=== PATIENT | female | born 1965 | race American Indian/Alaskan Native ===

== ENCOUNTER 2016-11-22 09:07 | Outpatient (CLI) | payer MEDICARE ==
--- NOTE | 2016-11-23 11:49 | Vascular Lab Report ---
LOWER EXTREMITY ARTERIAL DUPLEX: REASON FOR EXAM: Peripheral arterial disease. COMMENTS ON THE RIGHT: Triphasic waveforms are seen proximally. Triphasic waveforms are seen distally. No significant velocity gradients are identified. No focal significant plaque is identified. Findings are consistent with normal perfusion. Findings are consistent with the ability to heal distal wounds. COMMENTS ON THE LEFT: Triphasic waveforms are seen proximally. Triphasic waveforms are seen distally. No significant velocity gradients are identified. No focal significant plaque is identified. Findings are consistent with normal perfusion. Findings are consistent with the ability to heal distal wounds. IMPRESSION: RIGHT: Essentially normal arterial flow. LEFT:Essentially normal arterial flow.
== END 2016-11-22 09:08 | disposition home or self-care (01) ==
LOC: VAS 09:07
PROVIDERS: ATTEND Internal Medicine
DX: I99.8 Other disorder of circulatory system (principal); I10 Essential (primary) hypertension; I25.119 Atherosclerotic heart disease of native coronary artery with unspecified angina pectoris; E78.00 Pure hypercholesterolemia, unspecified; J45.909 Unspecified asthma, uncomplicated; J18.9 Pneumonia, unspecified organism; F41.9 Anxiety disorder, unspecified; F17.200 Nicotine dependence, unspecified, uncomplicated
CPT/HCPCS: 93925

== ENCOUNTER 2016-12-30 15:57 | Emergency (ER) | payer MEDICARE ==
--- NOTE | 2016-12-30 16:50 | XRay Report ---
FINAL REPORT EXAM: XR CHEST ROUTINE 2V HISTORY: Shortness of breath TECHNIQUE: PA and lateral views of the chest PRIORS: None. FINDINGS: Lines, tubes, and devices: N/A Lungs and pleura: Trachea is normal in position. There is mild infiltrate in the right cardiophrenic angle located posteriorly in the right lower lobe. There is no evidence for pleural effusion, vascular congestion, or pneumothorax. Cardiomediastinal silhouette: Cardiac and mediastinal silhouettes are unremarkable. Other: Bony structures are intact. IMPRESSION: Mild infiltrate in the medial right lung base.
[2016-12-30 17:23] LABS: Hematocrit 40.7 % (30.3-42.9); Hemoglobin 13.8 gm/dl (10.1-14.3); Mean Corpuscular HGB Conc 34 % (30-34); Mean Corpuscular Hemoglobin 32 pg (28-32); Mean Corpuscular Volume 93 fl (79-97); Platelet Count 291 K/mm3 (140-440); Red Blood Count 4.38 M/mm3 (3.65-5.03); Red Cell Distribution Width 12.5 % (13.2-15.2); White Blood Count 11.2 K/mm3 (4.5-11.0)
[2016-12-30 17:38] LABS: Anion Gap 16 mmol/L; Blood Urea Nitrogen 6 mg/dL (7-17); Carbon Dioxide 27 mmol/L (22-30); Chloride 101.9 mmol/L (98-107); Glucose 266 mg/dL (65-100); Sodium 141 mmol/L (137-145)
[2016-12-30 18:00] LABS: Basophils % (Manual) 0 % (0.0-1.8); Blastocytes % (Manual) 0 %
[2016-12-30 18:01] LABS: Diff Status Complete; Platelet Estimate Consistent w Auto; RBC Morphology Normal
--- NOTE | 2016-12-30 19:15 | Emergency Department Report ---
HPI - General Chief Complaint: Chest Pain Time Seen by Provider: 12/30/16 18:45 - HPI HPI: Room 25 The patient is a 51-year-old female presenting with a chief complaint pleurisy and headache. The patient states 2 weeks ago she noticed a "bump" in the right lower quadrant of her abdomen which she thought was a "hair bump." The patient states she developed a headache 2 weeks ago simple in origin as well. Patient states today she noticed a "bump" was bigger and when she pulled that all she discovered that it was a tick. Patient does admit to a subjective fever. The patient also states 2 days ago she developed pain in her back bilaterally sharp and pleuritic in nature associated with shortness of breath. The patient has a history of multiple PEs in the past and states symptoms feel similar. Patient also missed a cough has been productive of nielson sputum for the past 5 days. The patient states her last stress test occurred approximately 4 months ago and her last cardiac catheterization occurred in 2011 where they were able to "fix a small blockage without using a stent or balloon." Location: [see above] Duration: [see above] Quality: Sharp Severity: Moderate Modifying factors: [see above] Context: [see above] Mode of transportation: [not driving] ED Past Medical Hx - Past Medical History Hx Hypertension: Yes (FOR 7 YRS) Hx Diabetes: Yes (FOR 20 YRS) Hx Deep Vein Thrombosis: Yes (IVC filter placement 2008) Hx Pulmonary Embolism: Yes (IN 2002) Hx GERD: Yes Hx Arthritis: Yes Hx Asthma: Yes Additional medical history: CAD. UNSTABLE ANGINA. sacroidosis. neuropathy - Surgical History Hx Cholecystectomy: Yes (LAP IN 1997) Additional Surgical History: IVC FILTER. TUBAL LIGATION. TMJ SURGERY - Family History Family history: no significant - Social History Smoking Status: Current Every Day Smoker (1/2 pack per day) Substance Use Type: Alcohol (rarely) - Medications Home Medications: Home Medications Medication Instructions Recorded Confirmed Last Taken Type Insulin Aspart [NovoLOG Flexpen] 1 units SQ BID PRN 02/13/13 12/30/16 02/17/15 History Insulin Glargine,Hum.rec.anlog 50 unit SQ QHS 02/13/13 12/30/16 02/17/15 History [Lantus Solostar] Pantoprazole [Protonix TAB] 40 mg PO QDAY 1012/30/16 02/17/15 History Promethazine HCl [Promethazine TAB] 12.5 mg PO Q8HR PRN 02/13/13 12/30/16 History Valacyclovir HCl [valACYclovir] 1,000 mg PO QDAY 02/13/13 12/30/16 02/17/15 History clonazePAM [KlonoPIN] 1 mg PO Q8HR PRN 02/13/13 12/30/16 02/17/15 History metFORMIN [Glucophage] 1,000 mg PO BID #30 tab 02/13/13 12/30/16 02/17/15 Rx Diazepam 5 mg PO QHS 02/17/15 12/30/16 02/17/15 History Enoxaparin [Lovenox] 80 mg SQ Q12HR 02/17/15 12/30/16 02/17/15 History HYDROcodone/APAP 7.5-325 [[place] 1 each PO Q8HR PRN 02/17/15 12/30/16 02/17/15 History 7.5-325 mg TAB] Ipratropium/Albuterol Sulfate 1 ampul IH Q4HR 02/17/15 12/30/16 02/17/15 History [DUONEB *Not for PRN Use*] Pregabalin [Lyrica] 75 mg PO BID 02/17/15 12/30/16 02/17/15 History Ranitidine HCl [Zantac 150 MG TAB] 150 mg PO QHS 02/17/15 12/30/16 02/17/15 History Sitagliptin Phosphate [Januvia] 100 mg PO QDAY 02/17/15 12/30/16 02/17/15 History amLODIPine [Norvasc] 5 mg PO DAILY 02/17/15 12/30/16 02/17/15 History ALBUTEROL Inhaler [Proair] 2 puff IH QID PRN #1 inhalation 12/30/16 Unknown Rx Doxycycline [Vibramycin CAP] 100 mg PO Q12HR #20 capsule 12/30/16 Unknown Rx HYDROcodone/APAP 5-325 [[place] 1 - 2 each PO Q6HR PRN #14 tablet 12/30/16 Unknown Rx 5/325] ED Review of Systems ROS: Stated complaint: INSECT BITE Other details as noted in HPI Comment: All other systems reviewed and negative Constitutional: denies: chills, fever Eyes: denies: eye pain, eye discharge, vision change ENT: denies: ear pain, throat pain Respiratory: shortness of breath, other (pleurisy). denies: cough, wheezing Cardiovascular: chest pain Endocrine: no symptoms reported Gastrointestinal: denies: abdominal pain, nausea, diarrhea Genitourinary: denies: urgency, dysuria, discharge Musculoskeletal: back pain Skin: rash. denies: lesions Neurological: headache Psychiatric: denies: anxiety, depression Hematological/Lymphatic: denies: easy bleeding, easy bruising Physical Exam - Physical Exam Vital Signs: Vital Signs 12/30/16 12/30/16 12/30/16 16:02 18:12 18:25 Temperature 97.9 F Pulse Rate 93 H 92 H Respiratory 18 18 18 Rate Blood Pressure 133/77 Blood Pressure 120/67 [Left] O2 Sat by Pulse 99 100 Oximetry 12/30/16 18:27 Temperature Pulse Rate 92 H Respiratory Rate Blood Pressure Blood Pressure [Left] O2 Sat by Pulse Oximetry Physical Exam: GENERAL: The patient is well-developed well-nourished female lying on stretcher not appearing to be in acute distress. [] HEENT: Normocephalic. Atraumatic. Extraocular motions are intact. Patient has moist mucous membranes. NECK: Supple. No meningitic signs are noted. Trachea midline CHEST/LUNGS: Clear to auscultation. There is no respiratory distress noted. HEART/CARDIOVASCULAR: Regular. There is no tachycardia. There is no gallop rub or murmur. ABDOMEN: Abdomen is soft, nontender. Patient has normal bowel sounds. There is no abdominal distention. SKIN: There is an approximately 3 cm diameter circular region of erythema on the skin of the patient's abdominal right lower quadrant at the site of her tick bite. There are no target lesions. There is no diaphoresis. NEURO: The patient is awake, alert, and oriented. The patient is cooperative. Cranial nerves II through XII grossly intact. There are no focal neurologic findings. The patient has normal speech MUSCULOSKELETAL: There is no evidence of acute injury. ED Course Vital Signs 12/30/16 12/30/16 12/30/16 16:02 18:12 18:25 Temperature 97.9 F Pulse Rate 93 H 92 H Respiratory 18 18 18 Rate Blood Pressure 133/77 Blood Pressure 120/67 [Left] O2 Sat by Pulse 99 100 Oximetry 12/30/16 18:27 Temperature Pulse Rate 92 H Respiratory Rate Blood Pressure Blood Pressure [Left] O2 Sat by Pulse Oximetry ED Medical Decision Making - Lab Data Result diagrams: 12/30/16 16:53 12/30/16 16:53 Laboratory Tests 12/30/16 12/30/16 12/30/16 16:53 16:53 19:06 WBC 11.2 H RBC 4.38 Hgb 13.8 Hct 40.7 MCV 93 MCH 32 MCHC 34 RDW 12.5 L Plt Count 291 Lymph # Geriatrician Add Manual Diff Complete Total Counted 100 Seg Neuts % (Manual) 52.0 Band Neutrophils % 2.0 Lymphocytes % (Manual) 40.0 H Reactive Lymphs % (Man) 0 Monocytes % (Manual) 5.0 Eosinophils % (Manual) 1.0 Basophils % (Manual) 0 Metamyelocytes % 0 Myelocytes % 0 Promyelocytes % 0 Blast Cells % 0 Nucleated RBC % Not Reportable Seg Neutrophils # Man 5.8 Band Neutrophils # 0.2 Lymphocytes # (Manual) 4.5 Abs React Lymphs (Man) 0.0 Monocytes # (Manual) 0.6 Eosinophils # (Manual) 0.1 Basophils # (Manual) 0.0 Metamyelocytes # 0.0 Myelocytes # 0.0 Promyelocytes # 0.0 Blast Cells # 0.0 WBC Morphology Not Reportable Hypersegmented Neuts Not Reportable Hyposegmented Neuts Not Reportable Hypogranular Neuts Not Reportable Smudge Cells Not Reportable Toxic Granulation Not Reportable Toxic Vacuolation Not Reportable Dohle Bodies Not Reportable Pelger-Huet Anomaly Not Reportable Ashkan Rods Not Reportable Platelet Estimate Consistent w auto Clumped Platelets Not Reportable Plt Clumps, EDTA Not Reportable Large Platelets Not Reportable Giant Platelets Not Reportable Platelet Satelliting Not Reportable Plt Morphology Comment Not Reportable RBC Morphology Normal Dimorphic RBCs Not Reportable Polychromasia Not Reportable Hypochromasia Not Reportable Poikilocytosis Not Reportable Anisocytosis Not Reportable Microcytosis Not Reportable Macrocytosis Not Reportable Spherocytes Not Reportable Pappenheimer Bodies Not Reportable Sickle Cells Not Reportable Target Cells Not Reportable Tear Drop Cells Not Reportable Ovalocytes Not Reportable Helmet Cells Not Reportable Hand-[place] Bodies Not Reportable [place] Rings Not Reportable [place] Cells Not Reportable Bite Cells Not Reportable Crenated Cell Not Reportable Elliptocytes Not Reportable Acanthocytes (Spur) Not Reportable Rouleaux Not Reportable Hemoglobin C Crystals Not Reportable Schistocytes Not Reportable Malaria parasites Not Reportable Curt Bodies Not Reportable Hem Pathologist Commnt No PT 13.7 INR 1.00 APTT 31.1 Chloride 101.9 Carbon Dioxide 27 Anion Gap 16 BUN 6 L Creatinine 0.6 L Estimated GFR > 60 BUN/Creatinine Ratio 10.00 Glucose 266 H Calcium 9.0 Troponin T < 0.010 Sodium 141, potassium 4.0 - EKG Data -: EKG Interpreted by Me EKG shows normal: sinus rhythm Rate: normal - EKG Data When compared to previous EKG there are: previous EKG unavailable Interpretation: nonspecific ST-T wave tracee (T-wave inversion in leads 3 and V3) - Radiology Data Radiology results: report reviewed (CT chest), image reviewed (chest x-ray, CT chest) interpreted by me: Chest X-ray- basilar infiltrates CT chest (read by radiologist)-no evidence for PE. Bilateral groundglass opacities in the lung bases likely inflammatory or infectious. Small bolus bilaterally. Subcarinal and mild bilateral hilar adenopathy. Findings may be reactive. CT head (read by radiologist)-negative CT of the head. No acute intracranial process noted. Chronic maxillary sinusitis - Medical Decision Making Given patient's history of a recent tick bite antibiotic choice of doxycycline was made to cover the patient's pneumonia as well as potential rickettsial disease. Patient given strong warnings - Differential Diagnosis pneumonia, PE, ACS, rickettsial disease Critical care attestation.: If time is entered above; I have spent that time in minutes in the direct care of this critically ill patient, excluding procedure time. ED Disposition Clinical Impression: Bilateral pneumonia, Tick bite Disposition: DC-01 TO HOME OR SELFCARE Is pt being admited?: No Does the pt Need Aspirin: No Condition: Stable Instructions: Bacterial Pneumonia (ED) Additional Instructions: Return to the emergency department immediately should you develop worsening symptoms, fever, inability to tolerate food or liquid or any other concerns. Prescriptions: ALBUTEROL Inhaler [Proair] 2 puff IH QID PRN #1 inhalation PRN Reason: Shortness Of Breath Doxycycline [Vibramycin CAP] 100 mg PO Q12HR #20 capsule HYDROcodone/APAP 5-325 [[place] 5/325] 1 - 2 each PO Q6HR PRN #14 tablet PRN Reason: Pain Referrals: PRIMARY CARE, [Primary Care Provider] - 3-5 Days AYANNA RODRIGEZ MD [Staff Physician] - 3-5 Days Time of Disposition: 21:05
[2016-12-30 19:38] LABS: Partial Thromboplastin Time 31.1 Sec. (24.2-36.6)
[2016-12-30] MEDS ORDERED: NACL ONE (19:39)
--- NOTE | 2016-12-30 20:26 | Cat Scan Report ---
FINAL REPORT EXAM: CT HEAD/BRAIN WO CON HISTORY: headache TECHNIQUE: Standard unenhanced CT of the head at 5.0 millimeter axial increments PRIORS: None. FINDINGS: The ventricular system is normal in size and configuration. There is no evidence for parenchymal volume loss. There is no evidence for mass lesion, mass effect, midline shift, acute intracranial hemorrhage, or acute ischemia/ infarction. Visualized paranasal sinuses demonstrate extensive mucosal thickening throughout the maxillary sinuses, sphenoid sinuses, and bilateral ethmoid sinuses. The left frontal sinus is clear but there agenesis of the right frontal sinus. IMPRESSION: Negative CT of the head. No acute intracranial process noted. Chronic maxillary sinusitis
--- NOTE | 2016-12-30 20:43 | Cat Scan Report ---
FINAL REPORT EXAM: CT ANGIO CHEST HISTORY: pleurisy, shortness of breath TECHNIQUE: Enhanced CT of the chest at 2.5 mm axial intervals following a pulmonary embolism protocol. Coronal and sagittal imaging were also obtained. Oblique coronal MIP projections were obtained. Contrast: 100 ml of Omnipaque 350 given IV. PRIORS: None. FINDINGS: There is no evidence for pulmonary embolism in the main pulmonary artery, right and left pulmonary arteries or their major distributions. However, CT does not exclude distal pulmonary emboli. Within the neck, the thyroid gland extends to the level of the manubrium. No focal nodule is seen. Ground-glass opacities in both lung bases are noted which may be inflammatory or infectious. A few small bulla are present bilaterally. Otherwise, the lung parenchyma are expanded and clear with no evidence for parenchymal nodules, consolidation, congestion, or pleural effusion. A subcarinal lymph node measures 1.6 cm which is mildly enlarged. There is also mild bilateral hilar adenopathy. There is no evidence for axillary evidence for mediastinal, hilar, or axillary adenopathy. Cardiovascular structures are within normal limits. No evidence for ventricular chamber enlargement is seen. Images through the lung bases include the upper abdomen which show no abnormalities of the visualized abdominal viscera. Gallbladder has been surgically removed. Bony structures demonstrate no focal abnormalities. IMPRESSION: 1. no evidence for pulmonary embolism. 2. Bilateral ground-glass opacities in the lung bases, likely inflammatory or infectious 3. small bullous bilaterally 4. Sub-carinal and mild bilateral hilar adenopathy. Findings may be reactive
[2016-12-30 21:29] VITALS: BP 140/86
== END 2016-12-30 21:29 | disposition home or self-care (01) ==
LOC: ED 15:57
DX: J18.9 Pneumonia, unspecified organism (principal); W57.XXXA Bitten or stung by nonvenomous insect and other nonvenomous arthropods, initial encounter; Y93.9 Activity, unspecified; Y92.9 Unspecified place or not applicable; Y99.9 Unspecified external cause status
CPT/HCPCS: 36415; 70450; 71020; 71275; 80048; 84484; 85007; 85025; 85610; 85730; 87040; 93005; 93010; 99284; Q9967

== ENCOUNTER 2017-05-10 14:56 | Outpatient (CLI) | payer MEDICARE ==
--- NOTE | 2017-05-15 13:58 | Vascular Lab Report ---
Left Lower Extremity Venous Duplex Study: Reason for Exam: Pain of the left lower extremity. Comments on the Right: A limited duplex study was done of the proximal veins of the right lower extremity. All veins visualized are freely compressible without evidence of internal echogenicity. Flow is spontaneous and phasic throughout. No evidence of acute or chronic thrombus is seen in any of the vessels visualized. Comments on the Left: All veins visualized are freely compressible without evidence of internal echogenicity. Flow is spontaneous and phasic throughout. No evidence of acute or chronic thrombus is seen in any of the vessels visualized. Impression: No evidence of acute or chronic deep venous thrombosis in the left lower extremity.
== END 2017-05-10 14:57 | disposition home or self-care (01) ==
LOC: VAS 14:56
PROVIDERS: ATTEND Internal Medicine
DX: M79.605 Pain in left leg (principal)

== ENCOUNTER 2017-08-09 23:10 | Inpatient (IN) | payer MEDICARE ==
[2017-08-10] MEDS ORDERED: ASPIRIN PO ONE (00:37)
[2017-08-10 01:07] LABS: Hematocrit 40.8 % (30.3-42.9); Mean Corpuscular HGB Conc 34 % (30-34); Mean Corpuscular Hemoglobin 32 pg (28-32); Mean Corpuscular Volume 92 fl (79-97); Platelet Count 304 K/mm3 (140-440); Red Blood Count 4.43 M/mm3 (3.65-5.03); Red Cell Distribution Width 12.5 % (13.2-15.2)
--- NOTE | 2017-08-10 01:24 | XRay Report ---
FINAL REPORT EXAM: XR CHEST ROUTINE 2V HISTORY: BRONWYN TECHNIQUE: Three views of the chest were submitted. Comparison is made to the study of 12/30/2016. FINDINGS: The heart size and mediastinum appear normal. There are no localized infiltrates or effusions. The lungs are not congested. The skeletal structures are well-maintained. IMPRESSION: No active chest disease.
[2017-08-10 01:28] LABS: BUN/Creatinine Ratio 7; Blood Urea Nitrogen 5 mg/dL (7-17); Calcium 8.7 mg/dL (8.4-10.2); Hemolysis Index 1
--- NOTE | 2017-08-10 02:06 | Emergency Department Report ---
ED Chest Pain HPI - General Chief Complaint: Chest Pain Stated Complaint: BODYACHE Time Seen by Provider: 08/10/17 02:05 Source: patient Mode of arrival: Ambulatory Limitations: No Limitations - History of Present Illness MD Complaint: chest pain -: Sudden Onset: during rest Pain Location: substernal, left chest, right chest Pain Radiation: neck Severity: moderate Severity scale (0 -10): 8 Quality: sharp Consistency: constant Improves With: remaining still Worsens With: palpation, movement Context: recent illness re: dyspnea. denies: nausea, vomting, diaphoresis Other Symptoms: cough, fever, palpitations. denies: syncope, rash, acid taste in mouth, leg swelling, burping Treatments Prior to Arrival: none Aspirin use within the Past 7 Days: (0) No - Related Data On Oral Contraceptives: No Home Medications Medication Instructions Recorded Confirmed Last Taken Insulin Aspart [NovoLOG Flexpen] 1 units SQ BID PRN 02/13/13 12/30/16 02/17/15 Insulin Glargine,Hum.rec.anlog 50 unit SQ QHS 02/13/13 12/30/16 02/17/15 [Lantus Solostar] Pantoprazole [Protonix TAB] 40 mg PO QDAY 02/13/13 12/30/16 02/17/15 Promethazine HCl [Promethazine TAB] 12.5 mg PO Q8HR PRN 02/13/13 12/30/16 Valacyclovir HCl [valACYclovir] 1,000 mg PO QDAY 02/13/13 12/30/16 02/17/15 clonazePAM [KlonoPIN] 1 mg PO Q8HR PRN 02/13/13 12/30/16 02/17/15 Diazepam 5 mg PO QHS 02/17/15 12/30/16 02/17/15 Enoxaparin [Lovenox] 80 mg SQ Q12HR 02/17/15 12/30/16 02/17/15 HYDROcodone/APAP 7.5-325 [[place] 1 each PO Q8HR PRN 02/17/15 12/30/16 02/17/15 7.5-325 mg TAB] Ipratropium/Albuterol Sulfate 1 ampul IH Q4HR 10/08/15 08/20/17 10/08/15 [DUONEB *Not for PRN Use*] Pregabalin [Lyrica] 75 mg PO BID 02/17/15 12/30/16 02/17/15 Ranitidine HCl [Zantac 150 MG TAB] 150 mg PO QHS 02/17/15 12/30/16 02/17/15 Sitagliptin Phosphate [Januvia] 100 mg PO QDAY 02/17/15 12/30/16 02/17/15 amLODIPine [Norvasc] 5 mg PO DAILY 02/17/15 12/30/16 02/17/15 Previous Rx's Medication Instructions Recorded Last Taken Type metFORMIN [Glucophage] 1,000 mg PO BID #30 tab 02/13/13 02/17/15 Rx ALBUTEROL Inhaler [Proair] 2 puff IH QID PRN #1 inhalation 12/30/16 Unknown Rx Doxycycline [Vibramycin CAP] 100 mg PO Q12HR #20 capsule 12/30/16 Unknown Rx HYDROcodone/APAP 5-325 [[place] 1 - 2 each PO Q6HR PRN #14 tablet 12/30/16 Unknown Rx 5/325] Allergies Allergy/AdvReac Type Severity Reaction Status Date / Time aspirin AdvReac Mild ON THINNERS Verified 06/03/14 18:10 Heart Score - HEART Score History: Moderately suspicious EKG: Normal Age: 45-65 Risk factors: > 3 risk factors or hx of atherosclerotic disease Troponin: < normal limit HEART Score: 4 ED Review of Systems ROS: Stated complaint: BODYACHE Other details as noted in HPI Comment: All other systems reviewed and negative Constitutional: chills. denies: fever Eyes: denies: eye pain, eye discharge, vision change ENT: denies: ear pain, throat pain Respiratory: cough, shortness of breath, SOB with exertion, SOB at rest. denies : wheezing Cardiovascular: chest pain. denies: palpitations Endocrine: no symptoms reported Gastrointestinal: denies: abdominal pain, nausea, diarrhea Genitourinary: denies: urgency, dysuria, discharge Musculoskeletal: denies: back pain, joint swelling, arthralgia Skin: denies: rash, lesions Neurological: denies: headache, weakness, paresthesias Psychiatric: denies: anxiety, depression Hematological/Lymphatic: denies: easy bleeding, easy bruising ED Past Medical Hx - Past Medical History Previous Medical History?: Yes Hx Hypertension: Yes (FOR 7 YRS) Hx Heart Attack/AMI: No Hx Congestive Heart Failure: No Hx Diabetes: Yes (FOR 20 YRS) Hx Deep Vein Thrombosis: Yes (IVC filter placement 2008) Hx Pulmonary Embolism: Yes (IN 2002) Hx GERD: Yes Hx Liver Disease: No Hx Renal Disease: No Hx Sickle Cell Disease: No Hx Arthritis: Yes Hx Seizures: No Hx Kidney Stones: No Hx Asthma: Yes Hx COPD: No Hx Tuberculosis: No Hx Dementia: No Hx HIV: No Additional medical history: CAD. UNSTABLE ANGINA. sacroidosis. neuropathy - Surgical History Past Surgical History?: Yes Hx Coronary Stent: No Hx Pacemaker: No Hx Internal Defibrillator: No Hx Cholecystectomy: Yes (LAP IN 1997) Additional Surgical History: IVC FILTER. TUBAL LIGATION. TMJ SURGERY - Family History Family history: hypertension - Social History Smoking Status: Current Every Day Smoker Substance Use Type: None - Medications Home Medications: Home Medications Medication Instructions Recorded Confirmed Last Taken Type Insulin Aspart [NovoLOG Flexpen] 1 units SQ BID PRN 02/13/13 12/30/16 02/17/15 History Insulin Glargine,Hum.rec.anlog 50 unit SQ QHS 02/13/13 12/30/16 02/17/15 History [Lantus Solostar] Pantoprazole [Protonix TAB] 40 mg PO QDAY 02/13/13 12/30/16 02/17/15 History Promethazine HCl [Promethazine TAB] 12.5 mg PO Q8HR PRN 02/13/13 12/30/16 History Valacyclovir HCl [valACYclovir] 1,000 mg PO QDAY 02/13/13 12/30/16 02/17/15 History clonazePAM [KlonoPIN] 1 mg PO Q8HR PRN 02/13/13 12/30/16 02/17/15 History metFORMIN [Glucophage] 1,000 mg PO BID #30 tab 02/13/13 12/30/16 02/17/15 Rx Diazepam 5 mg PO QHS 02/17/15 12/30/16 02/17/15 History Enoxaparin [Lovenox] 80 mg SQ Q12HR 02/17/15 12/30/16 02/17/15 History HYDROcodone/APAP 7.5-325 [[place] 1 each PO Q8HR PRN 02/17/15 12/30/16 02/17/15 History 7.5-325 mg TAB] Ipratropium/Albuterol Sulfate 1 ampul IH Q4HR 02/17/15 12/30/16 02/17/15 History [DUONEB *Not for PRN Use*] Pregabalin [Lyrica] 75 mg PO BID 02/17/15 12/30/16 02/17/15 History Ranitidine HCl [Zantac 150 MG TAB] 150 mg PO QHS 02/17/15 12/30/16 02/17/15 History Sitagliptin Phosphate [Januvia] 100 mg PO QDAY 02/17/15 12/30/16 02/17/15 History amLODIPine [Norvasc] 5 mg PO DAILY 02/17/15 12/30/16 02/17/15 History ALBUTEROL Inhaler [Proair] 2 puff IH QID PRN #1 inhalation 12/30/16 Unknown Rx Doxycycline [Vibramycin CAP] 100 mg PO Q12HR #20 capsule 12/30/16 Unknown Rx HYDROcodone/APAP 5-325 [[place] 1 - 2 each PO Q6HR PRN #14 tablet 12/30/16 Unknown Rx 5/325] ED Physical Exam - General Limitations: No Limitations General appearance: alert, in no apparent distress - Head Head exam: Present: atraumatic, normocephalic - Eye Eye exam: Present: normal appearance - ENT ENT exam: Present: mucous membranes moist - Neck Neck exam: Present: normal inspection - Respiratory Respiratory exam: Present: rhonchi, chest wall tenderness - Cardiovascular Cardiovascular Exam: Present: regular rate, normal rhythm. Absent: systolic murmur, diastolic murmur, rubs, gallop - GI/Abdominal GI/Abdominal exam: Present: soft, normal bowel sounds - Extremities Exam Extremities exam: Present: normal inspection - Back Exam Back exam: Present: normal inspection - Neurological Exam Neurological exam: Present: alert, oriented X3 - Psychiatric Psychiatric exam: Present: normal affect, normal mood - Skin Skin exam: Present: warm, dry, intact, normal color. Absent: rash ED Course Vital Signs 08/10/17 00:31 Temperature 97.8 F Pulse Rate 95 H Respiratory 18 Rate Blood Pressure 158/82 O2 Sat by Pulse 97 Oximetry - Reevaluation(s) Reevaluation #1: Discussed plan of care with patient. All results discussed with patient. Will consult hospitalist for admission. 08/10/17 04:07 DANII score - Danii Score Age > 65: (0) No Aspirin use within the Past 7 Days: (0) No 3 or more CAD Risk Factors: (1) Yes 2 or more Angina events in past 24 hrs: (1) Yes Known CAD with more than 50% Stenosis: (0) No Elevated Cardiac Markers: (0) No ST Deviation Greater than 0.5mm: (0) No DANII Score: 2 ED Medical Decision Making - Lab Data Result diagrams: 08/10/17 00:46 08/10/17 00:46 - EKG Data -: EKG Interpreted by Me EKG shows normal: sinus rhythm, axis, intervals, QRS complexes, ST-T waves Rate: normal - EKG Data Interpretation: normal EKG - Radiology Data Radiology results: report reviewed, image reviewed interpreted by me: No acute findings on chest x-ray Normal limits chest x-ray - Medical Decision Making Patient is a 52-year-old female that presents to emergency room with chest pain and shortness of breath. Will admit patient for further evaluation. Patient appears to have bronchitis. Will treat accordingly. - Differential Diagnosis bronchitis. Pneumonia. Chest pain. Shortness of breath. Cough. ACS. P Critical care attestation.: If time is entered above; I have spent that time in minutes in the direct care of this critically ill patient, excluding procedure time. ED Disposition Clinical Impression: Chest pain, SOB (shortness of breath), Bronchitis, Elevated WBC count, Hyperglycemia Disposition: 09 OP ADMIT IP TO THIS HOSP Is pt being admited?: Yes Does the pt Need Aspirin: No Condition: Serious Time of Disposition: 04:06
[2017-08-10 02:12] LABS: Bilirubin,Urine NEG (Negative); Blood,Urine NEG (Negative); Color,Urine Straw (Yellow); Mucus,Urine FEW /HPF; Protein,Urine <15 mg/dL mg/dL (Negative); Urobilinogen,Urine < 2.0 mg/dL (<2.0)
[2017-08-10 02:43] LABS: Band Neutrophils # (Manual) 0.3 K/mm3; Basophils % (Manual) 0 % (0.0-1.8); RBC Morphology Normal; Total Cells Counted 100
[2017-08-10] MEDS ORDERED: MORPHINE IV ONE (03:51)
[2017-08-10] MEDS ORDERED: ROCEPHIN/NS 1 GM/50 ML 1 GM/50 ML BAG IV ONE (03:54)
[2017-08-10] MEDS ORDERED: cefTRIAXone 1 GM in NACL 0.9% 20 ML IV ONE (03:54)
[2017-08-10] MEDS ORDERED: XARELTO PO ONE (05:26)
[2017-08-10] MEDS ORDERED: SODIUM CHLORIDE FLUSH SYRINGE 10 ML IV PRN (05:34)
[2017-08-10] MEDS ORDERED: NACL 0.45% 1000 ML 1,000 ML IV SCH (06:00)
[2017-08-10 07:13] LABS: BUN/Creatinine Ratio 8; Blood Urea Nitrogen 4 mg/dL (7-17); Calcium 8.7 mg/dL (8.4-10.2); Hemolysis Index 6
[2017-08-10] MEDS ORDERED: GLUCOPHAGE PO SCH (08:00)
[2017-08-10] MEDS ORDERED: LEXISCAN IV ONE (08:14)
--- NOTE | 2017-08-10 08:33 | History and Physical Report ---
History of Present Illness Date of examination: 08/10/17 Date of admission: 08/10/17 05:25 Chief complaint: chest pain History of present illness: Ms Diaz is a 52 y/o female with chronic pain syndrome, DM, CAD, HTN, morbid obesity, presented to the hospital accompained by her sister with c/o right sided and Substernal Chest pain x a few days, 8/10 worsened by movement, no SOB , squeezing in origin, reports recent fall on the right side. Pain is usually relieved by pain meds, but pt has been out of her hydrocodone . ED Course On presentation to the ED, VS were stable EKG, CXR, done both negative Aspirin was given, pain meds given too Referred to the hospital medicine service for inpt admis Past History Past Medical History: CAD, diabetes, hypertension, hyperlipidemia, sarcoidosis Past Surgical History: No surgical history Social history: single, lives with family, smoking, full code, other Family history: CAD, diabetes, hypertension, stroke Medications and Allergies Allergies Allergy/AdvReac Type Severity Reaction Status Date / Time aspirin AdvReac Mild ON THINNERS Verified 06/03/14 18:10 Home Medications Medication Instructions Recorded Confirmed Last Taken Type Insulin Aspart [NovoLOG Flexpen] 1 units SQ BID PRN 02/13/13 12/30/16 02/17/15 History Insulin Glargine,Hum.rec.anlog 50 unit SQ QHS 02/13/13 12/30/16 02/17/15 History [Lantus Solostar] Pantoprazole [Protonix TAB] 40 mg PO QDAY 02/13/13 12/30/16 02/17/15 History Promethazine HCl [Promethazine TAB] 12.5 mg PO Q8HR PRN 02/13/13 12/30/16 History Valacyclovir HCl [valACYclovir] 1,000 mg PO QDAY 02/13/13 12/30/16 02/17/15 History clonazePAM [KlonoPIN] 1 mg PO Q8HR PRN 02/13/13 12/30/16 02/17/15 History metFORMIN [Glucophage] 1,000 mg PO BID #30 tab 02/13/13 12/30/16 02/17/15 Rx Diazepam 5 mg PO QHS 02/17/15 12/30/16 02/17/15 History Enoxaparin [Lovenox] 80 mg SQ Q12HR 02/17/15 12/30/16 02/17/15 History HYDROcodone/APAP 7.5-325 [[place] 1 each PO Q8HR PRN 02/17/15 12/30/16 02/17/15 History 7.5-325 mg TAB] Ipratropium/Albuterol Sulfate 1 ampul IH Q4HR 02/17/15 12/30/16 02/17/15 History [DUONEB *Not for PRN Use*] Pregabalin [Lyrica] 75 mg PO BID 02/17/15 12/30/16 02/17/15 History Ranitidine HCl [Zantac 150 MG TAB] 150 mg PO QHS 02/17/15 12/30/16 02/17/15 History Sitagliptin Phosphate [Januvia] 100 mg PO QDAY 02/17/15 12/30/16 02/17/15 History amLODIPine [Norvasc] 5 mg PO DAILY 02/17/15 12/30/16 02/17/15 History ALBUTEROL Inhaler [Proair] 2 puff IH QID PRN #1 inhalation 12/30/16 Unknown Rx Doxycycline [Vibramycin CAP] 100 mg PO Q12HR #20 capsule 12/30/16 Unknown Rx HYDROcodone/APAP 5-325 [[place] 1 - 2 each PO Q6HR PRN #14 tablet 12/30/16 Unknown Rx 5/325] Active Meds: Active Medications Albuterol/Ipratropium (Duoneb *Not For Prn Use*) 1 ampul IH Q4HRT JERMAINE Amlodipine Besylate (Norvasc) 5 mg PO DAILY JERMAINE Atorvastatin Calcium (Lipitor) 40 mg PO QHS JERMAINE Sodium Chloride (Nacl 0.45% 1000 Ml) 1,000 mls @ 75 mls/hr IV DIRECT JERMAINE Metformin HCl (Glucophage) 1,000 mg PO BIDDIAB JERMAINE Pantoprazole Sodium (Protonix) 40 mg PO QDAY JERMAINE Pregabalin (Lyrica) 75 mg PO BID JERMAINE Regadenoson (Lexiscan) 0.4 mg IV ONCE ONE Stop: 08/10/17 08:15 Sodium Chloride (Sodium Chloride Flush Syringe 10 Ml) 10 ml IV PRN PRN PRN Reason: LINE FLUSH Valacyclovir HCl (Valtrex) 1,000 mg PO QDAY JERMAINE Review of Systems Constitutional: weight gain, weakness, no chills, no sweats Eyes: bilateral: other (no visual disturbance or loss) Ears, nose, mouth and throat: ear discharge, no ear pain, no bleeding gums, no dental pain, no mouth pain Breasts: no change in shape, no swelling, no mass Cardiovascular: chest pain, dyspnea on exertion, no orthopnea, no palpitations, no shortness of breath Respiratory: cough with sputum, congestion, no excessive sputum, no wheezing, no pleurisy Gastrointestinal: no abdominal pain, no vomiting, no diarrhea, no hematochezia, no loss of appetite Genitourinary Female: no dyspareunia, no dysmenorrhea, no incomplete emptying, no urge incontinence Menstruation: postmenopausal Rectal: no incontinence, no bleeding, no hemorrhoids, no discharge Musculoskeletal: muscle weakness, muscle cramps, myalgias, no atrophy, no limitation of motion, no gait dysfunction Integumentary: no sores, no wounds, no jaundice, no blisters Neurological: no parathesias, no numbness, no tingling, no convulsions, no aphasia Psychiatric: no insomnia, no hypersomnia, no hallucinations, no paranoia, no depression Endocrine: no cold intolerance, no heat intolerance, no excessive sweating, no flushing Hematologic/Lymphatic: no easy bruising, no easy bleeding, no lymphadenopathy, no lymphedema Allergic/Immunologic: seasonal allergies, no allergic rhinitis, no persistent infections, no anaphylaxis Exam - Constitutional Vitals: Temp Pulse Resp BP Pulse Ox 97.8 F 79 18 152/86 96 08/10/17 00:31 08/10/17 06:11 08/10/17 06:11 08/10/17 06:11 08/10/17 06:11 General appearance: Present: no acute distress, cachectic - EENT Eyes: Present: PERRL, EOM intact ENT: hearing intact, clear oral mucosa, edentulous - Neck Neck: Present: supple, normal ROM - Respiratory Respiratory effort: normal Respiratory: bilateral: CTA, negative: rhonchi, wheezing - Cardiovascular Rhythm: regular Heart Sounds: Present: S1 & S2 - Extremities Extremities: no ischemia, No edema, normal temperature - Abdominal General gastrointestinal: Present: non-tender, non-distended, normal bowel sounds Female genitourinary: Present: deferred - Rectal Rectal Exam: deferred - Integumentary Integumentary: Present: clear, warm - Musculoskeletal Musculoskeletal: strength equal bilaterally, other (reproducible chest tenderness) - Psychiatric Psychiatric: appropriate mood/affect, intact judgment & insight, memory intact, other (talkative) - Neurologic Neurologic: CNII-XII intact, moves all extremities - Allied Health Allied health notes reviewed: nursing Results - Labs CBC & Chem 7: 08/10/17 00:46 08/10/17 06:33 Labs: Laboratory Last Values WBC 11.3 K/mm3 (4.5-11.0) H 08/10/17 00:46 RBC 4.43 M/mm3 (3.65-5.03) 08/10/17 00:46 Hgb 14.0 gm/dl (10.1-14.3) 08/10/17 00:46 Hct 40.8 % (30.3-42.9) 08/10/17 00:46 MCV 92 fl (79-97) 08/10/17 00:46 MCH 32 pg (28-32) 08/10/17 00:46 MCHC 34 % (30-34) 08/10/17 00:46 RDW 12.5 % (13.2-15.2) L 08/10/17 00:46 Plt Count 304 K/mm3 (140-440) 08/10/17 00:46 Lymph # Aids Social Worker 08/10/17 00:46 Add Manual Diff Complete 08/10/17 00:46 Total Counted 100 08/10/17 00:46 Seg Neuts % (Manual) 66.0 % (40.0-70.0) 08/10/17 00:46 Band Neutrophils % 3.0 % 08/10/17 00:46 Lymphocytes % (Manual) 22.0 % (13.4-35.0) 08/10/17 00:46 Reactive Lymphs % (Man) 0 % 08/10/17 00:46 Monocytes % (Manual) 7.0 % (0.0-7.3) 08/10/17 00:46 Eosinophils % (Manual) 2.0 % (0.0-4.3) 08/10/17 00:46 Basophils % (Manual) 0 % (0.0-1.8) 08/10/17 00:46 Metamyelocytes % 0 % 08/10/17 00:46 Myelocytes % 0 % 08/10/17 00:46 Promyelocytes % 0 % 08/10/17 00:46 Blast Cells % 0 % 08/10/17 00:46 Nucleated RBC % Not Reportable 08/10/17 00:46 Seg Neutrophils # Man 7.5 K/mm3 (1.8-7.7) 08/10/17 00:46 Band Neutrophils # 0.3 K/mm3 08/10/17 00:46 Lymphocytes # (Manual) 2.5 K/mm3 (1.2-5.4) 08/10/17 00:46 Abs React Lymphs (Man) 0.0 K/mm3 08/10/17 00:46 Monocytes # (Manual) 0.8 K/mm3 (0.0-0.8) 08/10/17 00:46 Eosinophils # (Manual) 0.2 K/mm3 (0.0-0.4) 08/10/17 00:46 Basophils # (Manual) 0.0 K/mm3 (0.0-0.1) 08/10/17 00:46 Metamyelocytes # 0.0 K/mm3 08/10/17 00:46 Myelocytes # 0.0 K/mm3 08/10/17 00:46 Promyelocytes # 0.0 K/mm3 08/10/17 00:46 Blast Cells # 0.0 K/mm3 08/10/17 00:46 WBC Morphology Not Reportable 08/10/17 00:46 Hypersegmented Neuts Not Reportable 08/10/17 00:46 Hyposegmented Neuts Not Reportable 08/10/17 00:46 Hypogranular Neuts Not Reportable 08/10/17 00:46 Smudge Cells Not Reportable 08/10/17 00:46 Toxic Granulation Not Reportable 08/10/17 00:46 Toxic Vacuolation Not Reportable 08/10/17 00:46 Dohle Bodies Not Reportable 08/10/17 00:46 Pelger-Huet Anomaly Not Reportable 08/10/17 00:46 Ashkan Rods Not Reportable 08/10/17 00:46 Platelet Estimate Appears normal 08/10/17 00:46 Clumped Platelets Not Reportable 08/10/17 00:46 Plt Clumps, EDTA Not Reportable 08/10/17 00:46 Large Platelets Not Reportable 08/10/17 00:46 Giant Platelets Not Reportable 08/10/17 00:46 Platelet Satelliting Not Reportable 08/10/17 00:46 Plt Morphology Comment Not Reportable 08/10/17 00:46 RBC Morphology Normal 08/10/17 00:46 Dimorphic RBCs Not Reportable 08/10/17 00:46 Polychromasia Not Reportable 08/10/17 00:46 Hypochromasia Not Reportable 08/10/17 00:46 Poikilocytosis Not Reportable 08/10/17 00:46 Anisocytosis Not Reportable 08/10/17 00:46 Microcytosis Not Reportable 08/10/17 00:46 Macrocytosis Not Reportable 08/10/17 00:46 Spherocytes Not Reportable 08/10/17 00:46 Pappenheimer Bodies Not Reportable 08/10/17 00:46 Sickle Cells Not Reportable 08/10/17 00:46 Target Cells Not Reportable 08/10/17 00:46 Tear Drop Cells Not Reportable 08/10/17 00:46 Ovalocytes Not Reportable 08/10/17 00:46 Helmet Cells Not Reportable 08/10/17 00:46 [place] Bodies Not Reportable 08/10/17 00:46 [place] Rings Not Reportable 08/10/17 00:46 [place] Cells Not Reportable 08/10/17 00:46 Bite Cells Not Reportable 08/10/17 00:46 Crenated Cell Not Reportable 08/10/17 00:46 Elliptocytes Not Reportable 08/10/17 00:46 Acanthocytes (Spur) Not Reportable 08/10/17 00:46 Rouleaux Not Reportable 08/10/17 00:46 Hemoglobin C Crystals Not Reportable 08/10/17 00:46 Schistocytes Not Reportable 08/10/17 00:46 Malaria parasites Not Reportable 08/10/17 00:46 Curt Bodies Not Reportable 08/10/17 00:46 Hem Pathologist Commnt No 08/10/17 00:46 Sodium 138 mmol/L (137-145) 08/10/17 06:33 Potassium 3.5 mmol/L (3.6-5.0) L 08/10/17 06:33 Chloride 100.1 mmol/L (98-107) 08/10/17 06:33 Carbon Dioxide 25 mmol/L (22-30) 08/10/17 06:33 Anion Gap 16 mmol/L 08/10/17 06:33 BUN 4 mg/dL (7-17) L 08/10/17 06:33 Creatinine 0.5 mg/dL (0.7-1.2) L 08/10/17 06:33 Estimated GFR > 60 ml/min 08/10/17 06:33 BUN/Creatinine Ratio 8 % 08/10/17 06:33 Glucose 302 mg/dL (65-100) H 08/10/17 06:33 Calcium 8.7 mg/dL (8.4-10.2) 08/10/17 06:33 Troponin T < 0.010 ng/mL (0.00-0.029) 08/10/17 00:46 Urine Color Straw (Yellow) 08/10/17 01:41 Urine Turbidity Clear (Clear) 08/10/17 01:41 Urine pH 6.0 (5.0-7.0) 08/10/17 01:41 Ur Specific [place] 1.032 (1.003-1.030) H 08/10/17 01:41 Urine Protein <15 mg/dl mg/dL (Negative) 08/10/17 01:41 Urine Glucose (UA) >=500 mg/dL (Negative) 08/10/17 01:41 Urine Ketones Neg mg/dL (Negative) 08/10/17 01:41 Urine Blood Neg (Negative) 08/10/17 01:41 Urine Nitrite Neg (Negative) 08/10/17 01:41 Urine Bilirubin Neg (Negative) 08/10/17 01:41 Urine Urobilinogen < 2.0 mg/dL (<2.0) 08/10/17 01:41 Ur Leukocyte Esterase Neg (Negative) 08/10/17 01:41 Urine WBC (Auto) 1.0 /HPF (0.0-6.0) 08/10/17 01:41 Urine RBC (Auto) 2.0 /HPF (0.0-6.0) 08/10/17 01:41 U Epithel Cells (Auto) 1.0 /HPF (0-13.0) 08/10/17 01:41 Urine Mucus Few /HPF 08/10/17 01:41 - Imaging and Cardiology EKG: report reviewed Chest x-ray: report reviewed Assessment and Plan Assessment and plan: Chest pain, atypical, has risk factors Uncontrolled DM II HTN Morbid Obesity Chronic Pain syndrome Suspect underlying psych problem Full code staTUS h/o PE/DVT s/p IVC filter on Xarelto Sarcoidosis Chronic tobacco abUSE Plan admit to tele Cardio consult, Primary cardio is Dr Garcia or Dr Lorena Zapata Stress test 2D Echo am labs counseled tobacco cessation restart Home meds hold Metformin for now' restart Xarelto Bleeding precautions at all times dvt and GI ulcer prophylaxis further pt mgt per hospital course d/w pt and sister by bedside More than 35 mins spent of which more than 50% of the time was spent in pt counseling and coordination of care Advance Directives: Yes VTE prophylaxis?: Chemical Plan of care discussed with patient/family: Yes
--- NOTE | 2017-08-10 09:22 | Consultation ---
History of Present Illness Consult date: 08/10/17 Consult reason: chest pain History of present illness: Ms Diaz is a 52 y/o female with chronic pain syndrome, DM, CAD, HTN, morbid obesity, presented to the hospital with c/o right sided and Substernal Chest pain present for the last several days. Patient notes 12/20 chest pain worsened by movement. No associated symptoms including SOB, orthopnea, pnd, palpitations , dizziness or syncope. Patient describes the chest pain as squeezing. The patient reports recent fall on the right side. Past History Past Medical History: CAD, diabetes, hypertension, hyperlipidemia, sarcoidosis Past Surgical History: No surgical history Social history: single, lives with family, smoking, full code, other Family history: CAD, diabetes, hypertension, stroke Medications and Allergies Allergies Allergy/AdvReac Type Severity Reaction Status Date / Time aspirin AdvReac Mild ON THINNERS Verified 06/03/14 18:10 Home Medications Medication Instructions Recorded Confirmed Last Taken Type Insulin Aspart [NovoLOG Flexpen] 1 units SQ BID PRN 02/13/13 12/30/16 02/17/15 History Insulin Glargine,Hum.rec.anlog 50 unit SQ QHS 02/13/13 12/30/16 02/17/15 History [Lantus Solostar] Pantoprazole [Protonix TAB] 40 mg PO QDAY 02/13/13 12/30/16 02/17/15 History Promethazine HCl [Promethazine TAB] 12.5 mg PO Q8HR PRN 02/13/13 12/30/16 History Valacyclovir HCl [valACYclovir] 1,000 mg PO QDAY 02/13/13 12/30/16 02/17/15 History clonazePAM [KlonoPIN] 1 mg PO Q8HR PRN 02/13/13 12/30/16 02/17/15 History metFORMIN [Glucophage] 1,000 mg PO BID #30 tab 02/13/13 12/30/16 02/17/15 Rx Diazepam 5 mg PO QHS 02/17/15 12/30/16 02/17/15 History Enoxaparin [Lovenox] 80 mg SQ Q12HR 02/17/15 12/30/16 02/17/15 History HYDROcodone/APAP 7.5-325 [[place] 1 each PO Q8HR PRN 02/17/15 12/30/16 02/17/15 History 7.5-325 mg TAB] Ipratropium/Albuterol Sulfate 1 ampul IH Q4HR 02/17/15 12/30/16 02/17/15 History [DUONEB *Not for PRN Use*] Pregabalin [Lyrica] 75 mg PO BID 02/17/15 12/30/16 02/17/15 History Ranitidine HCl [Zantac 150 MG TAB] 150 mg PO QHS 02/17/15 12/30/16 02/17/15 History Sitagliptin Phosphate [Januvia] 100 mg PO QDAY 02/17/15 12/30/16 02/17/15 History amLODIPine [Norvasc] 5 mg PO DAILY 02/17/15 12/30/16 02/17/15 History ALBUTEROL Inhaler [Proair] 2 puff IH QID PRN #1 inhalation 12/30/16 Unknown Rx Doxycycline [Vibramycin CAP] 100 mg PO Q12HR #20 capsule 12/30/16 Unknown Rx HYDROcodone/APAP 5-325 [[place] 1 - 2 each PO Q6HR PRN #14 tablet 12/30/16 Unknown Rx 5/325] Active Meds: Active Medications Albuterol/Ipratropium (Duoneb *Not For Prn Use*) 1 ampul IH Q4HRT JERMAINE Amlodipine Besylate (Norvasc) 5 mg PO DAILY JERMAINE Atorvastatin Calcium (Lipitor) 40 mg PO QHS [facility] Sodium Chloride (Nacl 0.45% 1000 Ml) 1,000 mls @ 75 mls/hr IV DIRECT JERMAINE Metformin HCl (Glucophage) 1,000 mg PO BIDDIAB JERMAINE Pantoprazole Sodium (Protonix) 40 mg PO QDAY JERMAINE Pregabalin (Lyrica) 75 mg PO BID JERMAINE Sodium Chloride (Sodium Chloride Flush Syringe 10 Ml) 10 ml IV PRN PRN PRN Reason: LINE FLUSH Valacyclovir HCl (Valtrex) 1,000 mg PO QDAY JERMAINE Review of Systems All systems: negative Physical Examination Vital Signs Temp Pulse Resp BP Pulse Ox 97.8 F 95 H 18 158/82 97 08/10/17 00:31 08/10/17 00:31 08/10/17 00:31 08/10/17 00:31 08/10/17 00:31 General appearance: no acute distress HEENT: Positive: PERRL, EOMI Neck: Positive: neck supple Cardiac: Positive: Reg Rate and Rhythm, S1/S2 Lungs: Positive: Normal Breath Sounds Neuro: Positive: Grossly Intact Abdomen: Positive: Unremarkable, Soft, Active Bowel Sounds Extremities: Present: normal Results 08/10/17 00:46 08/10/17 06:33 CBC 08/10/17 Range/Units 00:46 WBC 11.3 H (4.5-11.0) K/mm3 RBC 4.43 (3.65-5.03) M/mm3 Hgb 14.0 (10.1-14.3) gm/dl Hct 40.8 (30.3-42.9) % Plt Count 304 (140-440) K/mm3 Lymph # Volunteer Services Specialist Comprehensive Metabolic Panel 08/10/17 08/10/17 Range/Units 00:46 06:33 Sodium 137 138 (137-145) mmol/L Potassium 3.3 L 3.5 L (3.6-5.0) mmol/L Chloride 96.8 L 100.1 (98-107) mmol/L Carbon Dioxide 27 25 (22-30) mmol/L BUN 5 L 4 L (7-17) mg/dL Creatinine 0.7 0.5 L (0.7-1.2) mg/dL Glucose 435 H 302 H (65-100) mg/dL Calcium 8.7 8.7 (8.4-10.2) mg/dL EKG interpretations - Telemetry EKG Rhythm: Sinus Rhythm Assessment and Plan Chest pain, atypical - risk factors include HTN and DM2. Planned for stress test and echo today Uncontrolled DM II - management per primary. ACEi and at least moderate intensity statin recommended HTN - maximize medical therapy Morbid Obesity Chronic Pain syndrome h/o PE/DVT s/p IVC filter - on Xarelto. Reassess appropriateness of anticoagulation. Sarcoidosis Chronic tobacco abuse - encourage cessation
[2017-08-10] MEDS: DUONEB *Not for PRN Use IH SCH ×2 (09:28→12:32)
[2017-08-10] MEDS ORDERED: LYRICA PO SCH (10:00)
[2017-08-10] MEDS ORDERED: NORVASC PO SCH (10:00)
[2017-08-10] MEDS ORDERED: PROTONIX PO SCH (10:00)
[2017-08-10] MEDS ORDERED: VALTREX PO SCH (10:00)
--- NOTE | 2017-08-10 11:38 | Progress Note ---
Subjective Date of service: 08/10/17 Interval history: Preliminary Nuclear stress test results Stress test shows small apical ischemia likely due to diaphragmatic attenuation EF 74% low risk for significant ischemia Objective Vital Signs Temp Pulse Resp BP BP Pulse Ox 08/10/17 06:11 79 18 152/86 96 08/10/17 00:31 97.8 F 95 H 18 158/82 97 - Physical Examination HEENT: Positive: PERRL, EOMI Neck: Positive: neck supple Neuro: Positive: Grossly Intact Abdomen: Positive: Unremarkable, Soft, Active Bowel Sounds Extremities: Present: normal - Labs and Meds CBC 08/10/17 Range/Units 00:46 WBC 11.3 H (4.5-11.0) K/mm3 RBC 4.43 (3.65-5.03) M/mm3 Hgb 14.0 (10.1-14.3) gm/dl Hct 40.8 (30.3-42.9) % Plt Count 304 (140-440) K/mm3 Lymph # Nuclear Equipment Research Engineer Comprehensive Metabolic Panel 08/10/17 08/10/17 Range/Units 00:46 06:33 Sodium 137 138 (137-145) mmol/L Potassium 3.3 L 3.5 L (3.6-5.0) mmol/L Chloride 96.8 L 100.1 (98-107) mmol/L Carbon Dioxide 27 25 (22-30) mmol/L BUN 5 L 4 L (7-17) mg/dL Creatinine 0.7 0.5 L (0.7-1.2) mg/dL Glucose 435 H 302 H (65-100) mg/dL Calcium 8.7 8.7 (8.4-10.2) mg/dL - Imaging and Cardiology EKG: report reviewed
[2017-08-10] MEDS ORDERED: K-DUR PO ONE (13:43)
[2017-08-10 13:45] VITALS: BP 132/69
[2017-08-10] MEDS ORDERED: D50W (25GM) Syringe IV PRN (13:51)
--- NOTE | 2017-08-10 14:02 | Discharge Summary ---
Providers - Providers Date of Admission: 08/10/17 05:25 Date of discharge: 08/10/17 Attending physician: MARCIE ZELAYA 08/10/17 Consult to Cardiac Rehabilitation [CONS] Routine Reason For Exam: Phase I 08/10/17 05:34 Consult to Cardiology [CONS] Routine Consulting Provider: LISS GARCIA Reason For Exam: chest pain Primary care physician: KEILY JAVIER Hospitalization Condition: Stable Hospital course: Patient is a 52 yo woman with a history of tobacco dependency, Sarcoidosis, dm2 , pe/dvt s/p ivc filter on Xarelto who presented with substernal and right sided chest pains. Stress test unremarkable. -Chest pain, atypical most likely acute broncitis- risk factors include HTN and DM2. echo follow up with [facility] -Uncontrolled DM II - management per primary. ACEi and at least moderate intensity statin recommended -HTN - maximize medical therapy -Morbid Obesity -Chronic Pain syndrome -h/o PE/DVT s/p IVC filter - on Xarelto. Reassess appropriateness of anticoagulation. -Sarcoidosis: return to Management Department Chair. -Chronic tobacco abuse - encourage cessation Disposition: DC-01 TO HOME OR SELFCARE Time spent for discharge: 35 mintues Core Measure Documentation - Palliative Care Palliative Care/ Comfort Measures: Not Applicable - Core Measures Any of the following diagnoses?: none - VTE Discharge Requirements Deep Vein Thrombosis/Pulmonary Embolism Present on Admission: No Has pt received <5 days of overlap therapy or INR<2.0: No Anticoagulant overlap therapy prescribed at discharge: No Contraindication No Overlap Therapy order at DC: Not Indicated Exam - Physical Exam Narrative exam: GEN: WDWN, NAD, AWAKE, ALERT, ORIENTATED HEENT: NCAT, EOMI, PERRL, OP Clear NECK: supple, no adenopathy, no thyromegaly, no JVD CVS/HEART: RRR, NORMAL S1S2, pulses present bilaterally CHEST/LUNGS: Expiratory wheezing bilaterally, Symmetrical chest expansion, good air entry bilaterally GI/Abdomen: soft, NTND, good bowel sounds, no guarding or rebound /Bladder: no suprapubic tenderness, no CVA or paraspinal tenderness EXT/Skin: no c/c/e, no obvious rash MSK: FROM x 4 Neuro: CN 2-12 grossly intact, no new focal deficits Psych: calm - Constitutional Vitals: Temp Pulse Resp BP Pulse Ox 97.8 F 93 H 18 132/69 96 08/10/17 00:31 08/10/17 13:44 08/10/17 06:11 08/10/17 13:44 08/10/17 06:11 Plan Activity: other (no strenous activity until cleared by mandolin repairer) Diet: low salt, diabetic Special Instructions: record blood sugar diary (3 times a day with meals) Follow up with: KEILY JAVIER MD [Primary Care Provider] - 3-5 Days LISS GARCIA MD [Staff Physician] - 7 Days NAT THOMPSON MD [Staff Physician] - 7 Days Prescriptions: Azithromycin [Zithromax Z-ARIK] 1 dose PO DAILY #1 pack Budesonide/Formoterol Fumarate [Symbicort 160-4.5 Mcg Inhaler] 1 dose IH BID #1 unit methylPREDNISolone [Medrol Dose Arik] 1 dose PO DAILY #1 pack
== END 2017-08-10 15:00 | disposition home or self-care (01) | DRG 203 ==
LOC: ED 23:10 → 4A 08-10 05:25
PROVIDERS: ADMIT Family Medicine; ATTEND Internal Medicine
DX: J20.9 Acute bronchitis, unspecified (principal); F17.200 Nicotine dependence, unspecified, uncomplicated; I10 Essential (primary) hypertension; E66.01 Morbid (severe) obesity due to excess calories; G89.4 Chronic pain syndrome; D86.9 Sarcoidosis, unspecified; K21.9 Gastro-esophageal reflux disease without esophagitis; M19.90 Unspecified osteoarthritis, unspecified site; E11.65 Type 2 diabetes mellitus with hyperglycemia; I25.10 Atherosclerotic heart disease of native coronary artery without angina pectoris; Z86.711 Personal history of pulmonary embolism; Z86.718 Personal history of other venous thrombosis and embolism; Z68.33 Body mass index [BMI] 33.0-33.9, adult; Z71.6 Tobacco abuse counseling; Z79.4 Long term (current) use of insulin; Z88.6 Allergy status to analgesic agent; Z90.49 Acquired absence of other specified parts of digestive tract; Z98.51 Tubal ligation status; Z82.49 Family history of ischemic heart disease and other diseases of the circulatory system; Z79.899 Other long term (current) drug therapy; Z83.3 Family history of diabetes mellitus; Z82.3 Family history of stroke
CPT/HCPCS: 36415; 71046; 78452; 80048; 81001; 84484; 85007; 85025; 93005; 93010; 93017; 93306; 96374; 96375; A9502; J0696; J2270; J2785; J2930

== ENCOUNTER 2017-08-13 11:46 | Outpatient (CLI) | payer MEDICARE ==
[~2017-08-13 11:46] MED LIST: NACL ONE
--- NOTE | 2017-08-13 14:45 | Cat Scan Report ---
CT ABDOMEN PELVIS WITH CONTRAST: HISTORY: Thrombophlebitis, venous insufficiency, chronic peripheral vascular disease. COMPARISON: none. TECHNIQUE: Helical CT in 1.25mm intervals following IV contrast. Sagittal and coronal reconstructions. FINDINGS: Lung bases: Normal. Liver: There is mild fatty change throughout the liver. No enlargement or surface nodularity or suspicious mass. The portal venous system, hepatic veins and IVC are patent. Biliary system: The gallbladder has been surgically removed. No biliary dilatation. Pancreas: Normal. Spleen: Normal. Kidneys/ureters/bladder: Normal. Adrenal glands: Normal. Aorta: Normal. The IVC is widely patent. An IVC filter is identified at the L2-3 level. The iliac veins are widely patent. No evidence for May Thurner syndrome. Intestines: Normal. Appendix: Normal. Pelvic viscera: Normal. Ascites: None. Adenopathy: None. Musculoskeletal: Normal. IMPRESSION: Mild hepatic steatosis. Cholecystectomy. The venous structures are within normal limits.
== END 2017-08-13 11:47 | disposition home or self-care (01) ==
LOC: CT 11:46
PROVIDERS: ATTEND Radiology Diagnostic Radiology
DX: I87.2 Venous insufficiency (chronic) (peripheral) (principal); K76.0 Fatty (change of) liver, not elsewhere classified; R10.30 Lower abdominal pain, unspecified; E11.9 Type 2 diabetes mellitus without complications; I10 Essential (primary) hypertension; J45.909 Unspecified asthma, uncomplicated; Z90.49 Acquired absence of other specified parts of digestive tract; Z87.891 Personal history of nicotine dependence; Z86.72 Personal history of thrombophlebitis
CPT/HCPCS: 74177; Q9967

== ENCOUNTER 2017-09-17 09:35 | Outpatient (CLI) | payer MEDICARE ==
--- NOTE | 2017-09-17 11:47 | Magnetic Resonance Report ---
MRI LUMBAR SPINE WITHOUT CONTRAST HISTORY: Lumbar spondylosis. TECHNIQUE: axial T1, T2. sagittal T1,T2, STIR. COMPARISON: none. FINDINGS: The conus terminates at L1-2. No signal abnormality or mass. The cauda equina is within normal limits. No central canal stenosis. Normal height and alignment of the lumbar vertebra. 2.4 cm vertebral bone hemangioma within L4 is noted. Otherwise the bone marrow signal is normal. No acute fracture or suspicious bone lesion. Mild disc desiccation without narrowing is noted at L3-4 and L4-5. Mild diffuse facet arthropathy is identified. No hypertrophic changes. L1-2: No abnormality. L2-3: No abnormality. L3-4: No abnormality. L4-5: Minimal circumferential bulging disc is identified. No herniation or central canal stenosis. Bilateral neural foraminal narrowing is estimated at 25%. L5-S1: No abnormality. IMPRESSION: Mild diffuse facet arthropathy and early degenerative disc disease at L3-4 and L4-5 as described. No evidence for canal stenosis, herniation or nerve impingement. L4 vertebral body bone hemangioma.
== END 2017-09-17 09:36 | disposition home or self-care (01) ==
LOC: MRI 09:35
PROVIDERS: ATTEND Neurological Surgery
DX: M47.816 Spondylosis without myelopathy or radiculopathy, lumbar region (principal); M12.88 Other specific arthropathies, not elsewhere classified, other specified site; M51.36 Other intervertebral disc degeneration, lumbar region; D18.09 Hemangioma of other sites
CPT/HCPCS: 72148

== ENCOUNTER 2017-11-21 14:36 | Outpatient (CLI) | payer MEDICARE ==
--- NOTE | 2017-11-21 18:45 | XRay Report ---
FINAL REPORT EXAM: XR CHEST ROUTINE 2V HISTORY: COUGH TECHNIQUE: upright single view chest PRIORS: Comparison is August 10, 2017 FINDINGS: Cardiac and mediastinal contours are unremarkable. No focal pulmonary infiltrate is identified. No pleural fluid collection seen. Pulmonary vasculature is unremarkable. IMPRESSION: Negative single-view chest
== END 2017-11-21 14:37 | disposition home or self-care (01) ==
LOC: XRAY 14:36
PROVIDERS: ATTEND Internal Medicine Pulmonary Disease
DX: R05 Cough (principal); D86.89 Sarcoidosis of other sites; K21.9 Gastro-esophageal reflux disease without esophagitis; E78.00 Pure hypercholesterolemia, unspecified; I10 Essential (primary) hypertension; E07.9 Disorder of thyroid, unspecified; F41.9 Anxiety disorder, unspecified; I25.10 Atherosclerotic heart disease of native coronary artery without angina pectoris; F17.210 Nicotine dependence, cigarettes, uncomplicated; G62.9 Polyneuropathy, unspecified; Z86.010 Personal history of colon polyps; Z90.49 Acquired absence of other specified parts of digestive tract
CPT/HCPCS: 71046

== ENCOUNTER 2018-06-11 15:11 | Emergency (ER) | payer MEDICARE ==
[2018-06-11 15:21] VITALS: BP 168/69
[2018-06-11] MEDS ORDERED: NORCO 10/325 PO ONE (15:37)
[2018-06-11] MEDS ORDERED: TESSALON PERLES PO ONE (15:38)
[2018-06-11] MEDS ORDERED: ZOFRAN ODT PO ONE (15:38)
--- NOTE | 2018-06-11 15:50 | Emergency Department Report ---
ED General Adult HPI - General Chief complaint: Upper Respiratory Infection Stated complaint: PAIN IN LUNGS/RIBS PAIN/WHEEZING Time Seen by Provider: 06/11/18 15:29 Source: patient Mode of arrival: Ambulatory Limitations: No Limitations - History of Present Illness Initial comments: She presents to the emergency department with a chief complaint of a cough and fever for the last 4 days. Patient states the coughing is causing her to have rib pain. Patient states she was seen by her primary care physician 2 days ago for ear pain as well and was told that she did not have an ear infection. Patient has a history of sarcoidosis and does have nebulizer machine at home but she is without medications. -: Gradual Radiation: non-radiation Severity scale (0 -10): 4 Quality: aching, dull Consistency: constant Improves with: none Worsens with: none Associated Symptoms: denies other symptoms Treatments Prior to Arrival: none - Related Data Home Medications Medication Instructions Recorded Confirmed Last Taken Insulin Aspart [NovoLOG Flexpen] 1 units SQ BID PRN 02/13/13 12/30/16 02/17/15 Insulin Glargine,Hum.rec.anlog 50 unit SQ QHS 02/13/13 12/30/16 02/17/15 [Lantus Solostar] Pantoprazole [Protonix TAB] 40 mg PO QDAY 02/13/13 12/30/16 02/17/15 Promethazine HCl [Promethazine TAB] 12.5 mg PO Q8HR PRN 02/13/13 12/30/16 02/17/15 Valacyclovir HCl [valACYclovir] 1,000 mg PO QDAY 02/13/13 12/30/16 02/17/15 clonazePAM [KlonoPIN] 1 mg PO Q8HR PRN 02/13/13 12/30/16 02/17/15 Enoxaparin [Lovenox] 80 mg SQ Q12HR 02/17/15 12/30/16 02/17/15 HYDROcodone/APAP 7.5-325 [[place] 1 each PO Q8HR PRN 02/17/15 12/30/16 02/17/15 7.5-325 mg TAB] Ipratropium/Albuterol Sulfate 1 ampul IH Q4HR 02/17/15 12/30/16 02/17/15 [DUONEB *Not for PRN Use*] Pregabalin [Lyrica] 75 mg PO BID 02/17/15 12/30/16 02/17/15 Ranitidine HCl [Zantac 150 MG TAB] 150 mg PO QHS 02/17/15 12/30/16 02/17/15 Sitagliptin Phosphate [Januvia] 100 mg PO QDAY 02/17/15 12/30/16 02/17/15 amLODIPine [Norvasc] 5 mg PO DAILY 02/17/15 12/30/16 02/17/15 diazePAM [Diazepam] 5 mg PO QHS 02/17/15 12/30/16 02/17/15 Previous Rx's Medication Instructions Recorded Last Taken Type metFORMIN [Glucophage] 1,000 mg PO BID #30 tab 02/13/13 02/17/15 Rx ALBUTEROL Inhaler (OR & NICU) 2 puff IH QID PRN #1 inhalation 12/30/16 Unknown Rx [ProAir HFA Inhaler] HYDROcodone/APAP 5-325 [[place] 1 - 2 each PO Q6HR PRN #14 tablet 12/30/16 Unknown Rx 5-325 mg TAB] Azithromycin [Zithromax Z-SHERWIN] 1 dose PO DAILY #1 pack 08/10/17 Unknown Rx Budesonide/Formoterol Fumarate 1 dose IH BID #1 unit 08/10/17 Unknown Rx [Symbicort 160-4.5 Mcg Inhaler] methylPREDNISolone [Medrol Dose 1 dose PO DAILY #1 pack 08/10/17 Unknown Rx Sherwin] Acetaminophen/Codeine [Tylenol 1 tab PO Q4HR PRN #12 tablet 06/11/18 Unknown Rx /Codeine # 3 tab] Codeine Phosphate/Guaifenesin 10 ml PO Q12HR PRN #180 liquid 06/11/18 Unknown Rx [Guaifen-Codeine 200-20 mg/10Ml] Ipratropium/Albuterol Sulfate 1 ampul IH Q6HR PRN #30 ampul.neb 06/11/18 Unknown Rx [DUONEB *Not for PRN Use*] levoFLOXacin [Levaquin] 750 mg PO QDAY #10 tablet 06/11/18 Unknown Rx Allergies Allergy/AdvReac Type Severity Reaction Status Date / Time aspirin AdvReac Mild ON THINNERS Verified 06/03/14 18:10 ED Review of Systems ROS: Stated complaint: PAIN IN LUNGS/RIBS PAIN/WHEEZING Other details as noted in HPI Comment: All other systems reviewed and negative Constitutional: denies: chills, fever Eyes: denies: eye pain, eye discharge, vision change ENT: ear pain. denies: throat pain Respiratory: cough. denies: shortness of breath, wheezing Cardiovascular: denies: chest pain, palpitations Endocrine: no symptoms reported Gastrointestinal: denies: abdominal pain, nausea, diarrhea Genitourinary: denies: urgency, dysuria, discharge Musculoskeletal: denies: back pain, joint swelling, arthralgia Skin: denies: rash, lesions Neurological: denies: headache, weakness, paresthesias Psychiatric: denies: anxiety, depression Hematological/Lymphatic: denies: easy bleeding, easy bruising ED Past Medical Hx - Past Medical History Hx Hypertension: Yes (FOR 7 YRS) Hx Heart Attack/AMI: No Hx Congestive Heart Failure: No Hx Diabetes: Yes (FOR 20 YRS) Hx Deep Vein Thrombosis: Yes (IVC filter placement 2008) Hx Pulmonary Embolism: Yes (IN 2002) Hx GERD: Yes Hx Liver Disease: No Hx Renal Disease: No Hx Sickle Cell Disease: No Hx Arthritis: Yes Hx Seizures: No Hx Kidney Stones: No Hx Asthma: Yes Hx COPD: No Hx Tuberculosis: No Hx Dementia: No Hx HIV: No Additional medical history: CAD. UNSTABLE ANGINA. sacroidosis. neuropathy - Surgical History Past Surgical History?: Yes Hx Coronary Stent: No Hx Pacemaker: No Hx Internal Defibrillator: No Hx Cholecystectomy: Yes (LAP IN 1997) Additional Surgical History: IVC FILTER. TUBAL LIGATION. TMJ SURGERY - Social History Smoking Status: Current Every Day Smoker Substance Use Type: None - Medications Home Medications: Home Medications Medication Instructions Recorded Confirmed Last Taken Type Insulin Aspart [NovoLOG Flexpen] 1 units SQ BID PRN 02/13/13 12/30/16 02/17/15 History Insulin Glargine,Hum.rec.anlog 50 unit SQ QHS 02/13/13 12/30/16 02/17/15 History [Lantus Solostar] Pantoprazole [Protonix TAB] 40 mg PO QDAY 02/13/13 12/30/16 02/17/15 History Promethazine HCl [Promethazine TAB] 12.5 mg PO Q8HR PRN 02/13/13 12/30/1602/17/15 History Valacyclovir HCl [valACYclovir] 1,000 mg PO QDAY 02/13/13 12/30/16 02/17/15 History clonazePAM [KlonoPIN] 1 mg PO Q8HR PRN 02/13/13 12/30/16 02/17/15 History metFORMIN [Glucophage] 1,000 mg PO BID #30 tab 02/13/13 12/30/16 02/17/15 Rx Enoxaparin [Lovenox] 80 mg SQ Q12HR 02/17/15 12/30/16 02/17/15 History HYDROcodone/APAP 7.5-325 [[place] 1 each PO Q8HR PRN 02/17/15 12/30/16 02/17/15 History 7.5-325 mg TAB] Ipratropium/Albuterol Sulfate 1 ampul IH Q4HR 02/17/15 12/30/16 02/17/15 History [DUONEB *Not for PRN Use*] Pregabalin [Lyrica] 75 mg PO BID 02/17/15 12/30/16 02/17/15 History Ranitidine HCl [Zantac 150 MG TAB] 150 mg PO QHS 02/17/15 12/30/16 02/17/15 History Sitagliptin Phosphate [Januvia] 100 mg PO QDAY 02/17/15 12/30/16 02/17/15 History amLODIPine [Norvasc] 5 mg PO DAILY 02/17/15 12/30/16 02/17/15 History diazePAM [Diazepam] 5 mg PO QHS 02/17/15 12/30/16 02/17/15 History ALBUTEROL Inhaler (OR & NICU) 2 puff IH QID PRN #1 inhalation 12/30/16 Unknown Rx [ProAir HFA Inhaler] HYDROcodone/APAP 5-325 [[place] 1 - 2 each PO Q6HR PRN #14 tablet 12/30/16 Unknown Rx 5-325 mg TAB] Azithromycin [Zithromax Z-SHERWIN] 1 dose PO DAILY #1 pack 08/10/17 Unknown Rx Budesonide/Formoterol Fumarate 1 dose IH BID #1 unit 08/10/17 Unknown Rx [Symbicort 160-4.5 Mcg Inhaler] methylPREDNISolone [Medrol Dose 1 dose PO DAILY #1 pack 08/10/17 Unknown Rx Sherwin] Acetaminophen/Codeine [Tylenol 1 tab PO Q4HR PRN #12 tablet 06/11/18 Unknown Rx /Codeine # 3 tab] Codeine Phosphate/Guaifenesin 10 ml PO Q12HR PRN #180 liquid 06/11/18 Unknown Rx [Guaifen-Codeine 200-20 mg/10Ml] Ipratropium/Albuterol Sulfate 1 ampul IH Q6HR PRN #30 ampul.neb 06/11/18 Unknown Rx [DUONEB *Not for PRN Use*] levoFLOXacin [Levaquin] 750 mg PO QDAY #10 tablet 06/11/18 Unknown Rx ED Physical Exam - General Limitations: No Limitations General appearance: alert, in no apparent distress - Head Head exam: Present: atraumatic, normocephalic - Eye Eye exam: Present: normal appearance, PERRL, EOMI - ENT ENT exam: Present: mucous membranes moist - Neck Neck exam: Present: normal inspection - Respiratory Respiratory exam: Present: normal lung sounds bilaterally, rales. Absent: respiratory distress, wheezes - Cardiovascular Cardiovascular Exam: Present: regular rate, normal rhythm. Absent: systolic murmur, diastolic murmur, rubs, gallop - GI/Abdominal GI/Abdominal exam: Present: soft, normal bowel sounds. Absent: distended, tenderness - Extremities Exam Extremities exam: Present: normal inspection - Back Exam Back exam: Present: normal inspection - Neurological Exam Neurological exam: Present: alert, oriented X3, CN II-XII intact. Absent: motor sensory deficit - Psychiatric Psychiatric exam: Present: normal affect, normal mood - Skin Skin exam: Present: warm, dry, intact, normal color. Absent: rash ED Course Vital Signs 06/11/18 15:15 Temperature 98.5 F Pulse Rate 100 H Respiratory 18 Rate Blood Pressure 168/69 O2 Sat by Pulse 98 Oximetry Critical care attestation.: If time is entered above; I have spent that time in minutes in the direct care of this critically ill patient, excluding procedure time. ED Disposition Clinical Impression: Pneumonia Disposition: DC-01 TO HOME OR SELFCARE Is pt being admited?: No Does the pt Need Aspirin: No Condition: Stable Instructions: Community-acquired Pneumonia (ED), Bacterial Pneumonia (ED) Additional Instructions: return if worse Prescriptions: Acetaminophen/Codeine [Tylenol /Codeine # 3 tab] 1 tab PO Q4HR PRN #12 tablet PRN Reason: Pain Codeine Phosphate/Guaifenesin [Guaifen-Codeine 200-20 mg/10Ml] 10 ml PO Q12HR PRN #180 liquid PRN Reason: Cough Ipratropium/Albuterol Sulfate [DUONEB *Not for PRN Use*] 1 ampul IH Q6HR PRN #30 ampul.neb PRN Reason: Shortness Of Breath levoFLOXacin [Levaquin] 750 mg PO QDAY #10 tablet Referrals: [facility] [Outside] - 3-5 Days [facility] [Provider Group] - 3-5 Days Time of Disposition: 15:48
== END 2018-06-11 16:12 | disposition home or self-care (01) ==
LOC: ED 15:11
DX: J18.9 Pneumonia, unspecified organism (principal); I10 Essential (primary) hypertension; E11.9 Type 2 diabetes mellitus without complications; K21.9 Gastro-esophageal reflux disease without esophagitis; M19.90 Unspecified osteoarthritis, unspecified site; F17.200 Nicotine dependence, unspecified, uncomplicated; J45.909 Unspecified asthma, uncomplicated; Z86.718 Personal history of other venous thrombosis and embolism; Z86.711 Personal history of pulmonary embolism; Z98.51 Tubal ligation status; Z88.6 Allergy status to analgesic agent; Z90.49 Acquired absence of other specified parts of digestive tract; Z79.4 Long term (current) use of insulin
CPT/HCPCS: 99282; Q0162

== ENCOUNTER 2018-06-12 08:12 | Emergency (ER) | payer MEDICARE ==
[2018-06-12 08:23] VITALS: BP 144/104
[2018-06-12] MEDS ORDERED: TYLENOL PO ONE (08:45)
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
== END 2018-06-12 10:06 | disposition home or self-care (01) ==
LOC: ED 08:12
DX: S13.4XXA Sprain of ligaments of cervical spine, initial encounter (principal); S46.912A Strain of unspecified muscle, fascia and tendon at shoulder and upper arm level, left arm, initial encounter; S76.012A Strain of muscle, fascia and tendon of left hip, initial encounter; J45.909 Unspecified asthma, uncomplicated; K21.9 Gastro-esophageal reflux disease without esophagitis; M19.90 Unspecified osteoarthritis, unspecified site; E11.40 Type 2 diabetes mellitus with diabetic neuropathy, unspecified; I20.0 Unstable angina; Z79.4 Long term (current) use of insulin; Z88.6 Allergy status to analgesic agent; Z86.718 Personal history of other venous thrombosis and embolism; Z86.711 Personal history of pulmonary embolism; Z90.49 Acquired absence of other specified parts of digestive tract; Z98.51 Tubal ligation status; V89.2XXA Person injured in unspecified motor-vehicle accident, traffic, initial encounter; Y93.89 Activity, other specified; Y92.488 Other paved roadways as the place of occurrence of the external cause; Y99.8 Other external cause status
CPT/HCPCS: 72040; 99283

== ENCOUNTER 2018-07-09 01:34 | Emergency (ER) | payer MEDICARE ==
[2018-07-09 02:32] LABS: Hematocrit 43.3 % (30.3-42.9); Mean Corpuscular HGB Conc 35 % (30-34); Mean Corpuscular Volume 92 fl (79-97); Platelet Count 327 K/mm3 (140-440); Red Blood Count 4.72 M/mm3 (3.65-5.03); Red Cell Distribution Width 11.8 % (13.2-15.2)
--- NOTE | 2018-07-09 02:39 | XRay Report ---
FINAL REPORT PROCEDURE: XR CHEST ROUTINE 2V TECHNIQUE: PA and lateral chest radiographs were obtained. CPT 26753 HISTORY: Shortness of breath COMPARISON: No prior studies are available for comparison. FINDINGS: Heart: Normal. Mediastinum/Vessels: Normal. Lungs/Pleural space: Bilateral lower lung infiltrates. No effusion or pneumothorax. Bony thorax: No acute osseous abnormality. Other: IMPRESSION: There are bilateral mild lower lung infiltrates..
[2018-07-09 02:43] LABS: INR 1.79 (0.87-1.13)
[2018-07-09 02:44] LABS: Partial Thromboplastin Time 38.4 Sec. (24.2-36.6)
[2018-07-09 02:50] LABS: BUN/Creatinine Ratio 10; Blood Urea Nitrogen 7 mg/dL (7-17); Calcium 9.3 mg/dL (8.4-10.2); Hemolysis Index 10
[2018-07-09 03:06] LABS: Anisocytosis 1+; Band Neutrophils # (Manual) 0.2 K/mm3; Basophils % (Manual) 0 % (0.0-1.8); Ovalocytes Few; Total Cells Counted 100
[2018-07-09 03:07] LABS: Large Platelets Few; Stomatocytes Rare
--- NOTE | 2018-07-09 03:43 | Emergency Department Report ---
ED Shortness of Breath HPI - General Chief Complaint: Dyspnea/Respdistress Stated Complaint: BRONWYN, BACK PAIN Time Seen by Provider: 07/09/18 03:32 Source: patient Mode of arrival: Ambulatory Limitations: No Limitations - History of Present Illness Initial Comments: Patient is 52 years old female with history of sarcoidosis and diabetes. Patient presented to the ER complaining of cough and bilateral lower chest pain for the last 5 days. Patient stated that she was recently diagnosed with pneumonia in May. Patient denied any fever or chills. Patient stated that she has some nausea but no vomiting. MD Complaint: shortness of breath, cough -: days(s) Known History Of: COPD, recurrent pnemonia Context: recent URI - Related Data Home Medications Medication Instructions Recorded Confirmed Last Taken Insulin Aspart [NovoLOG Flexpen] 1 units SQ BID PRN 02/13/13 12/30/16 02/17/15 Insulin Glargine,Hum.rec.anlog 50 unit SQ QHS 02/13/13 12/30/16 02/17/15 [Lantus Solostar] Pantoprazole [Protonix TAB] 40 mg PO QDAY 02/13/13 12/30/16 02/17/15 Promethazine HCl [Promethazine TAB] 12.5 mg PO Q8HR PRN 02/13/13 12/30/16 02/17/15 Valacyclovir HCl [valACYclovir] 1,000 mg PO QDAY 02/13/13 12/30/16 02/17/15 clonazePAM [KlonoPIN] 1 mg PO Q8HR PRN 02/13/13 12/30/16 02/17/15 Enoxaparin [Lovenox] 80 mg SQ Q12HR 02/17/15 12/30/16 02/17/15 HYDROcodone/APAP 7.5-325 [[place] 1 each PO Q8HR PRN 02/17/15 12/30/16 02/17/15 7.5-325 mg TAB] Ipratropium/Albuterol Sulfate 1 ampul IH Q4HR 02/17/15 12/30/16 02/17/15 [DUONEB *Not for PRN Use*] Pregabalin [Lyrica] 75 mg PO BID 02/17/15 12/30/16 02/17/15 Ranitidine HCl [Zantac 150 MG TAB] 150 mg PO QHS 02/17/15 12/30/16 02/17/15 Sitagliptin Phosphate [Januvia] 100 mg PO QDAY 02/17/15 12/30/16 02/17/15 amLODIPine [Norvasc] 5 mg PO DAILY 02/17/15 12/30/16 02/17/15 diazePAM [Diazepam] 5 mg PO QHS 02/17/15 12/30/16 02/17/15 Previous Rx's Medication Instructions Recorded Last Taken Type metFORMIN [Glucophage] 1,000 mg PO BID #30 tab 02/13/13 02/17/15 Rx ALBUTEROL Inhaler (OR & NICU) 2 puff IH QID PRN #1 inhalation 12/30/16 Unknown Rx [ProAir HFA Inhaler] HYDROcodone/APAP 5-325 [[place] 1 - 2 each PO Q6HR PRN #14 tablet 12/30/16 Unknown Rx 5-325 mg TAB] Azithromycin [Zithromax Z-ARIK] 1 dose PO DAILY #1 pack 08/10/17 Unknown Rx Budesonide/Formoterol Fumarate 1 dose IH BID #1 unit 08/10/17 Unknown Rx [Symbicort 160-4.5 Mcg Inhaler] methylPREDNISolone [Medrol Dose 1 dose PO DAILY #1 pack 08/10/17 Unknown Rx Arik] Acetaminophen/Codeine [Tylenol 1 tab PO Q4HR PRN #12 tablet 06/11/18 Unknown Rx /Codeine # 3 tab] Codeine Phosphate/Guaifenesin 10 ml PO Q12HR PRN #180 liquid 06/11/18 Unknown Rx [Guaifen-Codeine 200-20 mg/10Ml] Ipratropium/Albuterol Sulfate 1 ampul IH Q6HR PRN #30 ampul.neb 06/11/18 Unknown Rx [DUONEB *Not for PRN Use*] levoFLOXacin [Levaquin] 750 mg PO QDAY #10 tablet 06/11/18 Unknown Rx Acetaminophen 500 mg PO Q8H PRN #20 tablet 06/12/18 Unknown Rx Cyclobenzaprine [Flexeril] 10 mg PO QHS PRN #10 tablet 06/12/18 Unknown Rx Allergies Allergy/AdvReac Type Severity Reaction Status Date / Time aspirin AdvReac Mild ON THINNERS Verified 06/03/14 18:10 ED Review of Systems ROS: Stated complaint: BRONWYN, BACK PAIN Other details as noted in HPI Comment: All other systems reviewed and negative Constitutional: denies: chills, fever Respiratory: cough, shortness of breath. denies: SOB with exertion, SOB at rest, wheezing Cardiovascular: denies: chest pain, palpitations Gastrointestinal: denies: abdominal pain, nausea, vomiting, diarrhea, constipation, hematemesis Musculoskeletal: denies: back pain ED Past Medical Hx - Past Medical History Previous Medical History?: Yes Hx Hypertension: Yes (FOR 7 YRS) Hx Heart Attack/AMI: No Hx Congestive Heart Failure: No Hx Diabetes: Yes (FOR 20 YRS) Hx Deep Vein Thrombosis: Yes (IVC filter placement 2008) Hx Pulmonary Embolism: Yes (IN 2002) Hx GERD: Yes Hx Liver Disease: No Hx Renal Disease: No Hx Sickle Cell Disease: No Hx Arthritis: Yes Hx Seizures: No Hx Kidney Stones: No Hx Asthma: Yes Hx COPD: No Hx Tuberculosis: No Hx Dementia: No Hx HIV: No Additional medical history: CAD. UNSTABLE ANGINA. sacroidosis. neuropathy - Surgical History Past Surgical History?: Yes Hx Coronary Stent: No Hx Pacemaker: No Hx Internal Defibrillator: No Hx Cholecystectomy: Yes (LAP IN 1997) Additional Surgical History: IVC FILTER. TUBAL LIGATION. TMJ SURGERY - Social History Smoking Status: Current Every Day Smoker Substance Use Type: Alcohol - Medications Home Medications: Home Medications Medication Instructions Recorded Confirmed Last Taken Type Insulin Aspart [NovoLOG Flexpen] 1 units SQ BID PRN 02/13/13 12/30/16 02/17/15 History Insulin Glargine,Hum.rec.anlog 50 unit SQ QHS 02/13/13 12/30/16 02/17/15 History [Lantus Solostar] Pantoprazole [Protonix TAB] 40 mg PO QDAY 02/13/13 12/30/16 02/17/15 History Promethazine HCl [Promethazine TAB] 12.5 mg PO Q8HR PRN 02/13/13 12/30/16 02/17/15 History Valacyclovir HCl [valACYclovir] 1,000 mg PO QDAY 02/13/13 12/30/16 02/17/15 History clonazePAM [KlonoPIN] 1 mg PO Q8HR PRN 02/13/13 12/30/16 02/17/15 History metFORMIN [Glucophage] 1,000 mg PO BID #30 tab 02/13/13 12/30/16 02/17/15 Rx Enoxaparin [Lovenox] 80 mg SQ Q12HR 02/17/15 12/30/16 02/17/15 History HYDROcodone/APAP 7.5-325 [[place] 1 each PO Q8HR PRN 02/17/15 12/30/16 02/17/15 History 7.5-325 mg TAB] Ipratropium/Albuterol Sulfate 1 ampul IH Q4HR 02/17/15 12/30/16 02/17/15 History [DUONEB *Not for PRN Use*] Pregabalin [Lyrica] 75 mg PO BID 02/17/15 12/30/16 02/17/15 History Ranitidine HCl [Zantac 150 MG TAB] 150 mg PO QHS 02/17/15 12/30/16 02/17/15 History Sitagliptin Phosphate [Januvia] 100 mg PO QDAY 02/17/15 12/30/16 02/17/15 History amLODIPine [Norvasc] 5 mg PO DAILY 02/17/15 12/30/16 02/17/15 History diazePAM [Diazepam] 5 mg PO QHS 02/17/15 12/30/16 02/17/15 History ALBUTEROL Inhaler (OR & NICU) 2 puff IH QID PRN #1 inhalation 12/30/16 Unknown Rx [ProAir HFA Inhaler] HYDROcodone/APAP 5-325 [[place] 1 - 2 each PO Q6HR PRN #14 tablet 12/30/16 Unknown Rx 5-325 mg TAB] Azithromycin [Zithromax Z-ARIK] 1 dose PO DAILY #1 pack 08/10/17 Unknown Rx Budesonide/Formoterol Fumarate 1 dose IH BID #1 unit 08/10/17 Unknown Rx [Symbicort 160-4.5 Mcg Inhaler] methylPREDNISolone [Medrol Dose 1 dose PO DAILY #1 pack 08/10/17 Unknown Rx Arik] Acetaminophen/Codeine [Tylenol 1 tab PO Q4HR PRN #12 tablet 06/11/18 Unknown Rx /Codeine # 3 tab] Codeine Phosphate/Guaifenesin 10 ml PO Q12HR PRN #180 liquid 06/11/18 Unknown Rx [Guaifen-Codeine 200-20 mg/10Ml] Ipratropium/Albuterol Sulfate 1 ampul IH Q6HR PRN #30 ampul.neb 06/11/18 Unknown Rx [DUONEB *Not for PRN Use*] levoFLOXacin [Levaquin] 750 mg PO QDAY #10 tablet 06/11/18 Unknown Rx Acetaminophen 500 mg PO Q8H PRN #20 tablet 06/12/18 Unknown Rx Cyclobenzaprine [Flexeril] 10 mg PO QHS PRN #10 tablet 06/12/18 Unknown Rx ED Physical Exam - General Limitations: No Limitations General appearance: alert, in no apparent distress - Head Head exam: Present: atraumatic, normocephalic, normal inspection - Eye Eye exam: Present: normal appearance, PERRL - ENT ENT exam: Present: normal exam, normal orophraynx, mucous membranes moist - Neck Neck exam: Present: normal inspection, full ROM. Absent: tenderness, meningismus, lymphadenopathy, thyromegaly - Respiratory Respiratory exam: Present: normal lung sounds bilaterally. Absent: respiratory distress, wheezes, rales, rhonchi, chest wall tenderness, accessory muscle use, decreased breath sounds, prolonged expiratory - Cardiovascular Cardiovascular Exam: Present: regular rate, normal rhythm, normal heart sounds - GI/Abdominal GI/Abdominal exam: Present: soft, normal bowel sounds. Absent: distended, tenderness, guarding, rebound, rigid, organomegaly, mass, bruit, pulsatile mass, hernia - Extremities Exam Extremities exam: Present: normal inspection, full ROM, normal capillary refill. Absent: pedal edema, calf tenderness - Back Exam Back exam: Present: normal inspection, full ROM. Absent: tenderness, CVA tenderness (R), CVA tenderness (L), muscle spasm, paraspinal tenderness, vertebral tenderness - Neurological Exam Neurological exam: Present: alert, oriented X3, CN II-XII intact, normal gait, reflexes normal - Skin Skin exam: Present: warm, intact, normal color ED Course Vital Signs 07/09/18 01:53 Temperature 98.5 F Pulse Rate 97 H Respiratory 18 Rate Blood Pressure 141/72 O2 Sat by Pulse 98 Oximetry ED Medical Decision Making - Lab Data Result diagrams: 07/09/18 02:20 07/09/18 02:20 - Radiology Data Radiology results: report reviewed Referring Physician: JULIANNE BONE Patient Name: RENO OGDEN Date of : 1965 Sex: Female Report Date: 2018-07-09 Report Status: Finalized Findings [facility] [address] [place] [address] XRay Report Signed Patient: RENO OGDEN MR#: [id number] : 1965 Acct:[id number] Age/Sex: 52 / F ADM Date: 07/09/18 Loc: ED Attending Dr: Ordering Physician: JULIANNE BONE MD Date of Service: 07/09/18 Procedure(s): XR chest routine 2V Accession Number(s): [id number] cc: ED MD LIZANDRO Fluoro Time In Minutes: FINAL REPORT PROCEDURE: XR CHEST ROUTINE 2V TECHNIQUE: PA and lateral chest radiographs were obtained. CPT 13436 HISTORY: Shortness of breath COMPARISON: No prior studies are available for comparison. FINDINGS: Heart: Normal. Mediastinum/Vessels: Normal. Lungs/Pleural space: Bilateral lower lung infiltrates. No effusion or pneumothorax. Bony thorax: No acute osseous abnormality. Other: IMPRESSION: There are bilateral mild lower lung infiltrates.. Transcribed By: [facility] Dictated By: GILLES CRUZ MD Electronically Authenticated By: GILLES CRUZ MD Signed Date/Time: 07/09/18238 DD/ 6 TD/TT: 07/09/18236 Critical care attestation.: If time is entered above; I have spent that time in minutes in the direct care of this critically ill patient, excluding procedure time. ED Disposition Clinical Impression: Pneumonia, Cough, SOB (shortness of breath) Disposition: DC-01 TO HOME OR SELFCARE Is pt being admited?: No Condition: Stable Instructions: Bacterial Pneumonia (ED) Referrals: AYANNA RODRIGEZ MD [Staff Physician] - 3-5 Days
[2018-07-09] MEDS ORDERED: ZOFRAN IM ONE (03:45)
[2018-07-09] MEDS ORDERED: MORPHINE IM ONE (03:45)
[2018-07-09 05:10] VITALS: BP 115/69
== END 2018-07-09 05:13 | disposition home or self-care (01) ==
LOC: ED 01:34
DX: J18.9 Pneumonia, unspecified organism (principal); I10 Essential (primary) hypertension; K21.9 Gastro-esophageal reflux disease without esophagitis; M19.90 Unspecified osteoarthritis, unspecified site; J45.909 Unspecified asthma, uncomplicated; E11.21 Type 2 diabetes mellitus with diabetic nephropathy; I25.10 Atherosclerotic heart disease of native coronary artery without angina pectoris; Z90.49 Acquired absence of other specified parts of digestive tract; Z98.51 Tubal ligation status; Z79.899 Other long term (current) drug therapy; Z79.4 Long term (current) use of insulin; Z88.6 Allergy status to analgesic agent
CPT/HCPCS: 36415; 71046; 80048; 85007; 85025; 85610; 85730; 93005; 93010; 96372; 99284; J2270; J2405

== ENCOUNTER 2018-09-07 12:55 | Emergency (ER) | payer MEDICARE ==
[2018-09-07 13:50] LABS: Bilirubin,Urine NEG (Negative); Blood,Urine NEG (Negative); Color,Urine Yellow (Yellow); Protein,Urine <15 mg/dL mg/dL (Negative); Urobilinogen,Urine < 2.0 mg/dL (<2.0); WBC,Urine < 1.0 /HPF (0.0-6.0)
--- NOTE | 2018-09-07 18:49 | Emergency Department Report ---
ED General Adult HPI - General Chief complaint: Extremity Problem,Nontraumatic Stated complaint: LOWER LEFT KNEE PAIN/LEG/ANKLE SWOLLEN Time Seen by Provider: 09/07/18 18:30 Source: patient Mode of arrival: Ambulatory Limitations: No Limitations - History of Present Illness Initial comments: 53-year-old -[place] female with past medical history of arthritis, diabetes, asthma, acid reflux, history of hypertension, pulmonary embolism, [place] filter placement in 2008 and currently on Xarelto presents to emergency department complaining of a 4-5 month history of pain to her left knee off and on, that worsens with range of motion and range of motion. She also has been having some swelling to the left ankle was started after the knee pain off and on as well. Since that time, since about July pain is related to her left hip. She went to her vascular doctor for evaluation due to this pain last month as well which she was evaluated for a DVT with and was found to be negative. Last 3 days. Pain is equivalent to her left hip and flank region and is radiating around the flank and she feels that she is believed to the lower abdomen. Severity scale (0 -10): 10 - Related Data Home Medications Medication Instructions Recorded Confirmed Last Taken Insulin Aspart [NovoLOG Flexpen] 1 units SQ BID PRN 02/13/13 12/30/16 02/17/15 Insulin Glargine,Hum.rec.anlog 50 unit SQ QHS 02/13/13 12/30/16 02/17/15 [Lantus Solostar] Pantoprazole [Protonix TAB] 40 mg PO QDAY 02/13/13 12/30/16 02/17/15 Promethazine HCl [Promethazine TAB] 12.5 mg PO Q8HR PRN 02/13/13 12/30/16 02/17/15 Valacyclovir HCl [valACYclovir] 1,000 mg PO QDAY 02/13/13 12/30/16 02/17/15 clonazePAM [KlonoPIN] 1 mg PO Q8HR PRN 02/13/13 12/30/16 02/17/15 Enoxaparin [Lovenox] 80 mg SQ Q12HR 02/17/15 12/30/16 02/17/15 HYDROcodone/APAP 7.5-325 [[place] 1 each PO Q8HR PRN 02/17/15 12/30/16 02/17/15 7.5-325 mg TAB] Ipratropium/Albuterol Sulfate 1 ampul IH Q4HR 02/17/15 12/30/16 02/17/15 [DUONEB *Not for PRN Use*] Pregabalin [Lyrica] 75 mg PO BID 02/17/15 12/30/16 02/17/15 Ranitidine HCl [Zantac] 150 mg PO QHS 02/17/15 12/30/16 02/17/15 Sitagliptin Phosphate [Januvia] 100 mg PO QDAY 02/17/15 12/30/16 02/17/15 amLODIPine [Norvasc] 5 mg PO DAILY 02/17/15 12/30/16 02/17/15 diazePAM [Diazepam] 5 mg PO QHS 02/17/15 12/30/16 02/17/15 Previous Rx's Medication Instructions Recorded Last Taken Type metFORMIN [Glucophage] 1,000 mg PO BID #30 tab 02/13/13 02/17/15 Rx ALBUTEROL Inhaler (OR & NICU) 2 puff IH QID PRN #1 inhalation 12/30/16 Unknown Rx [ProAir HFA Inhaler] HYDROcodone/APAP 5-325 [[place] 1 - 2 each PO Q6HR PRN #14 tablet 12/30/16 Unknown Rx 5-325 mg TAB] Azithromycin [Zithromax Z-SHERWIN] 1 dose PO DAILY #1 pack 08/10/17 Unknown Rx Budesonide/Formoterol Fumarate 1 dose IH BID #1 unit 08/10/17 Unknown Rx [Symbicort 160-4.5 Mcg Inhaler] methylPREDNISolone [Medrol Dose 1 dose PO DAILY #1 pack 08/10/17 Unknown Rx Sherwin] Acetaminophen/Codeine [Tylenol 1 tab PO Q4HR PRN #12 tablet 06/11/18 Unknown Rx /Codeine # 3 tab] Codeine Phosphate/Guaifenesin 10 ml PO Q12HR PRN #180 liquid 06/11/18 Unknown Rx [Guaifen-Codeine 200-20 mg/10Ml] Ipratropium/Albuterol Sulfate 1 ampul IH Q6HR PRN #30 ampul.neb 06/11/18 Unknown Rx [DUONEB *Not for PRN Use*] levoFLOXacin [Levaquin] 750 mg PO QDAY #10 tablet 06/11/18 Unknown Rx Acetaminophen 500 mg PO Q8H PRN #20 tablet 06/12/18 Unknown Rx Cyclobenzaprine [Flexeril] 10 mg PO QHS PRN #10 tablet 06/12/18 Unknown Rx Ondansetron [Zofran Odt] 4 mg PO Q8HR PRN #14 tab.rapdis 07/09/18 Unknown Rx guaiFENesin/CODEINE [Robitussin AC] 10 ml PO TID PRN #100 ml 07/09/18 Unknown Rx levoFLOXacin [Levaquin TAB] 500 mg PO QDAY #7 tablet 07/09/18 Unknown Rx traMADol [Ultram 50 MG tab] 50 mg PO Q4HR PRN #14 tablet 07/09/18 Unknown Rx Tramadol HCl [Ultram] 50 mg PO Q8HR #10 tablet 09/07/18 Unknown Rx Allergies Allergy/AdvReac Type Severity Reaction Status Date / Time aspirin AdvReac Mild ON THINNERS Verified 06/03/14 18:10 ED Review of Systems ROS: Stated complaint: LOWER LEFT KNEE PAIN/LEG/ANKLE SWOLLEN Other details as noted in HPI Constitutional: denies: chills, fever Eyes: denies: eye pain, eye discharge, vision change ENT: denies: ear pain, throat pain Respiratory: denies: cough, shortness of breath, wheezing Cardiovascular: denies: chest pain, palpitations Endocrine: no symptoms reported Gastrointestinal: denies: abdominal pain, nausea, diarrhea Genitourinary: denies: urgency, dysuria, discharge Musculoskeletal: denies: back pain, joint swelling, arthralgia Skin: denies: rash, lesions Neurological: denies: headache, weakness, paresthesias Psychiatric: denies: anxiety, depression Hematological/Lymphatic: denies: easy bleeding, easy bruising ED Past Medical Hx - Past Medical History Previous Medical History?: Yes Hx Hypertension: Yes (FOR 7 YRS) Hx Heart Attack/AMI: No Hx Congestive Heart Failure: No Hx Diabetes: Yes (FOR 20 YRS) Hx Deep Vein Thrombosis: Yes (IVC filter placement 2008) Hx Pulmonary Embolism: Yes (IN 2002) Hx GERD: Yes Hx Liver Disease: No Hx Renal Disease: No Hx Sickle Cell Disease: No Hx Arthritis: Yes Hx Seizures: No Hx Kidney Stones: No Hx Asthma: Yes Hx COPD: No Hx Tuberculosis: No Hx Dementia: No Hx HIV: No Additional medical history: CAD. UNSTABLE ANGINA. sacroidosis. neuropathy - Surgical History Past Surgical History?: Yes Hx Coronary Stent: No Hx Pacemaker: No Hx Internal Defibrillator: No Hx Cholecystectomy: Yes (LAP IN 1997) Additional Surgical History: IVC FILTER. TUBAL LIGATION. TMJ SURGERY - Social History Smoking Status: Never Smoker Substance Use Type: None - Medications Home Medications: Home Medications Medication Instructions Recorded Confirmed Last Taken Type Insulin Aspart [NovoLOG Flexpen] 1 units SQ BID PRN 02/13/13 12/30/16 02/17/15 History Insulin Glargine,Hum.rec.anlog 50 unit SQ QHS 02/13/13 12/30/16 02/17/15 History [Lantus Solostar] Pantoprazole [Protonix TAB] 40 mg PO QDAY 02/13/13 12/30/16 02/17/15 History Promethazine HCl [Promethazine TAB] 12.5 mg PO Q8HR PRN 02/13/13 12/30/16 02/17/15 History Valacyclovir HCl [valACYclovir] 1,000 mg PO QDAY 02/13/13 12/30/16 02/17/15 History clonazePAM [KlonoPIN] 1 mg PO Q8HR PRN 02/13/13 12/30/16 02/17/15 History metFORMIN [Glucophage] 1,000 mg PO BID #30 tab 02/13/13 12/30/16 02/17/15 Rx Enoxaparin [Lovenox] 80 mg SQ Q12HR 02/17/15 12/30/16 02/17/15 History HYDROcodone/APAP 7.5-325 [[place] 1 each PO Q8HR PRN 02/17/15 12/30/16 02/17/15 History 7.5-325 mg TAB] Ipratropium/Albuterol Sulfate 1 ampul IH Q4HR 02/17/15 12/30/16 02/17/15 History [DUONEB *Not for PRN Use*] Pregabalin [Lyrica] 75 mg PO BID 02/17/15 12/30/16 02/17/15 History Ranitidine HCl [Zantac] 150 mg PO QHS 02/17/15 12/30/16 02/17/15 History Sitagliptin Phosphate [Januvia] 100 mg PO QDAY 02/17/15 12/30/16 02/17/15 History amLODIPine [Norvasc] 5 mg PO DAILY 02/17/15 12/30/16 02/17/15 History diazePAM [Diazepam] 5 mg PO QHS 02/17/15 12/30/16 02/17/15 History ALBUTEROL Inhaler (OR & NICU) 2 puff IH QID PRN #1 inhalation 12/30/16 Unknown Rx [ProAir HFA Inhaler] HYDROcodone/APAP 5-325 [[place] 1 - 2 each PO Q6HR PRN #14 tablet 12/30/16 Unknown Rx 5-325 mg TAB] Azithromycin [Zithromax Z-SHERWIN] 1 dose PO DAILY #1 pack 08/10/17 Unknown Rx Budesonide/Formoterol Fumarate 1 dose IH BID #1 unit 08/10/17 Unknown Rx [Symbicort 160-4.5 Mcg Inhaler] methylPREDNISolone [Medrol Dose 1 dose PO DAILY #1 pack 08/10/17 Unknown Rx Sherwin] Acetaminophen/Codeine [Tylenol 1 tab PO Q4HR PRN #12 tablet 06/11/18 Unknown Rx /Codeine # 3 tab] Codeine Phosphate/Guaifenesin 10 ml PO Q12HR PRN #180 liquid 06/11/18 Unknown Rx [Guaifen-Codeine 200-20 mg/10Ml] Ipratropium/Albuterol Sulfate 1 ampul IH Q6HR PRN #30 ampul.neb 06/11/18 Unknown Rx [DUONEB *Not for PRN Use*] levoFLOXacin [Levaquin] 750 mg PO QDAY #10 tablet 06/11/18 Unknown Rx Acetaminophen 500 mg PO Q8H PRN #20 tablet 06/12/18 Unknown Rx Cyclobenzaprine [Flexeril] 10 mg PO QHS PRN #10 tablet 06/12/18 Unknown Rx Ondansetron [Zofran Odt] 4 mg PO Q8HR PRN #14 tab.rapdis 07/09/18 Unknown Rx guaiFENesin/CODEINE [Robitussin AC] 10 ml PO TID PRN #100 ml 07/09/18 Unknown Rx levoFLOXacin [Levaquin TAB] 500 mg PO QDAY #7 tablet 07/09/18 Unknown Rx traMADol [Ultram 50 MG tab] 50 mg PO Q4HR PRN #14 tablet 07/09/18 Unknown Rx Tramadol HCl [Ultram] 50 mg PO Q8HR #10 tablet 09/07/18 Unknown Rx ED Physical Exam - General Limitations: No Limitations General appearance: alert, in no apparent distress - Head Head exam: Present: atraumatic, normocephalic - Eye Eye exam: Present: normal appearance - ENT ENT exam: Present: mucous membranes moist - Neck Neck exam: Present: normal inspection - Respiratory Respiratory exam: Present: normal lung sounds bilaterally. Absent: respiratory distress - Cardiovascular Cardiovascular Exam: Present: regular rate, normal rhythm. Absent: systolic murmur, diastolic murmur, rubs, gallop - GI/Abdominal GI/Abdominal exam: Present: soft, normal bowel sounds - Extremities Exam Extremities exam: Present: normal inspection, tenderness, normal capillary refill, other (no Homans sign, no cords centimeter popliteal mass, no rest appreciated. Pulses are 2+. Full range of motion is noted. No tenderness to the Achilles tendon. Escoto's test is normal. Normal varus and valgus. Some crepitus noted. It was noticed with range of motion.). Absent: pedal edema, joint swelling, calf tenderness - Back Exam Back exam: Present: normal inspection - Neurological Exam Neurological exam: Present: alert, oriented X3, CN II-XII intact - Psychiatric Psychiatric exam: Present: normal affect, normal mood - Skin Skin exam: Present: warm, dry, intact, normal color. Absent: rash ED Course Vital Signs 09/07/18 09/07/18 09/07/18 13:01 19:12 19:13 Temperature 98.2 F 98.4 F Pulse Rate 100 H 80 Respiratory 16 18 18 Rate Blood Pressure 157/85 Blood Pressure 141/88 [Right] O2 Sat by Pulse 98 97 Oximetry ED Medical Decision Making - Lab Data Result diagrams: 09/07/18 19:08 09/07/18 19:08 Critical care attestation.: If time is entered above; I have spent that time in minutes in the direct care of this critically ill patient, excluding procedure time. ED Disposition Clinical Impression: Chronic knee pain, Lower extremity neuropathy Disposition: - TO HOME OR SELFCARE Is pt being admited?: No Does the pt Need Aspirin: No Condition: Stable Instructions: Peripheral Neuropathy (ED), Lumbar Radiculopathy (ED), Arthralgia (ED) Prescriptions: Tramadol HCl [Ultram] 50 mg PO Q8HR #10 tablet Referrals: [facility] [Other] - 3-5 Days
--- NOTE | 2018-09-07 19:11 | XRay Report ---
PROCEDURE: XR KNEE 3V LT HISTORY: knee pain FINDINGS: AP, lateral and oblique views of the left knee were acquired and demonstrate no fracture or malalignment of the left knee there is an enthesophyte at the quadriceps tendon insertion. There is no joint effusion. IMPRESSION: No fracture is seen in the left knee This document is electronically signed by Bob Quintanilla MD., September 07 2018 07:09:07 PM ET
[2018-09-07 19:13] VITALS: BP 141/88
[2018-09-07 19:16] LABS: Hematocrit 43.4 % (30.3-42.9); Hemoglobin 14.9 gm/dl (10.1-14.3); Mean Corpuscular HGB Conc 34 % (30-34); Mean Corpuscular Volume 94 fl (79-97); Platelet Count 347 K/mm3 (140-440); Red Blood Count 4.62 M/mm3 (3.65-5.03); Red Cell Distribution Width 12.6 % (13.2-15.2)
[2018-09-07 19:32] LABS: Alanine Aminotransferase 39 units/L (7-56); Albumin 3.9 g/dL (3.9-5); BUN/Creatinine Ratio 12; Blood Urea Nitrogen 7 mg/dL (7-17); Calcium 9.9 mg/dL (8.4-10.2); Hemolysis Index 10
[2018-09-07 19:57] LABS: Basophils % (Manual) 0 % (0.0-1.8); Total Cells Counted 100
[2018-09-07 19:58] LABS: Platelet Estimate Consistent w Auto; RBC Morphology Normal
[2018-09-07] MEDS ORDERED: ZOFRAN ODT ONE (20:12)
--- NOTE | 2018-09-07 21:20 | Emergency Department Report ---
ED General Adult HPI - General Chief complaint: Extremity Problem,Nontraumatic Stated complaint: LOWER LEFT KNEE PAIN/LEG/ANKLE SWOLLEN Time Seen by Provider: 09/07/18 18:30 Source: patient Mode of arrival: Ambulatory Limitations: No Limitations - History of Present Illness Initial comments: 53 y/o female presents to ED c/o chronic knee pain without recent injury and recent associated left leg pain and swelling. pain dull and throbbing with aches Pt. has hx of DVT and an IVC filter. pt. is on Xarelto and reports compliance. No fever or numbness. no rashes. Denies CP or SOB. -: Gradual Radiation: non-radiation Severity scale (0 -10): 0 Quality: aching, dull Consistency: constant Improves with: immobilization, rest Worsens with: movement Associated Symptoms: denies: cough, diaphoresis, fever/chills, loss of appetite, malaise, rash, seizure, syncope, weakness - Related Data Home Medications Medication Instructions Recorded Confirmed Last Taken Insulin Aspart [NovoLOG Flexpen] 1 units SQ BID PRN 02/13/13 12/30/16 02/17/15 Insulin Glargine,Hum.rec.anlog 50 unit SQ QHS 02/13/13 12/30/16 02/17/15 [Lantus Solostar] Pantoprazole [Protonix TAB] 40 mg PO QDAY 02/13/13 12/30/16 02/17/15 Promethazine HCl [Promethazine TAB] 12.5 mg PO Q8HR PRN 02/13/13 12/30/16 02/17/15 Valacyclovir HCl [valACYclovir] 1,000 mg PO QDAY 02/13/13 12/30/16 02/17/15 clonazePAM [KlonoPIN] 1 mg PO Q8HR PRN 02/13/13 12/30/16 02/17/15 Enoxaparin [Lovenox] 80 mg SQ Q12HR 02/17/15 12/30/16 02/17/15 HYDROcodone/APAP 7.5-325 [[place] 1 each PO Q8HR PRN 02/17/15 12/30/16 02/17/15 7.5-325 mg TAB] Ipratropium/Albuterol Sulfate 1 ampul IH Q4HR 10/12/2512/30/16 02/17/15 [DUONEB *Not for PRN Use*] Pregabalin [Lyrica] 75 mg PO BID 02/17/15 12/30/16 02/17/15 Ranitidine HCl [Zantac] 150 mg PO QHS 02/17/15 12/30/16 02/17/15 Sitagliptin Phosphate [Januvia] 100 mg PO QDAY 02/17/15 12/30/16 02/17/15 amLODIPine [Norvasc] 5 mg PO DAILY 02/17/15 12/30/16 02/17/15 diazePAM [Diazepam] 5 mg PO QHS 02/17/15 12/30/16 02/17/15 Previous Rx's Medication Instructions Recorded Last Taken Type metFORMIN [Glucophage] 1,000 mg PO BID #30 tab 02/13/13 02/17/15 Rx ALBUTEROL Inhaler (OR & NICU) 2 puff IH QID PRN #1 inhalation 12/30/16 Unknown Rx [ProAir HFA Inhaler] HYDROcodone/APAP 5-325 [[place] 1 - 2 each PO Q6HR PRN #14 tablet 12/30/16 Unknown Rx 5-325 mg TAB] Azithromycin [Zithromax Z-SHERWIN] 1 dose PO DAILY #1 pack 08/10/17 Unknown Rx Budesonide/Formoterol Fumarate 1 dose IH BID #1 unit 08/10/17 Unknown Rx [Symbicort 160-4.5 Mcg Inhaler] methylPREDNISolone [Medrol Dose 1 dose PO DAILY #1 pack 08/10/17 Unknown Rx Sherwin] Acetaminophen/Codeine [Tylenol 1 tab PO Q4HR PRN #12 tablet 06/11/18 Unknown Rx /Codeine # 3 tab] Codeine Phosphate/Guaifenesin 10 ml PO Q12HR PRN #180 liquid 06/11/18 Unknown Rx [Guaifen-Codeine 200-20 mg/10Ml] Ipratropium/Albuterol Sulfate 1 ampul IH Q6HR PRN #30 ampul.neb 06/11/18 Unknown Rx [DUONEB *Not for PRN Use*] levoFLOXacin [Levaquin] 750 mg PO QDAY #10 tablet 06/11/18 Unknown Rx Acetaminophen 500 mg PO Q8H PRN #20 tablet 01/31/19 Unknown Rx Cyclobenzaprine [Flexeril] 10 mg PO QHS PRN #10 tablet 06/12/18 Unknown Rx Ondansetron [Zofran Odt] 4 mg PO Q8HR PRN #14 tab.rapdis 07/09/18 Unknown Rx guaiFENesin/CODEINE [Robitussin AC] 10 ml PO TID PRN #100 ml 07/09/18 Unknown Rx levoFLOXacin [Levaquin TAB] 500 mg PO QDAY #7 tablet 07/09/18 Unknown Rx traMADol [Ultram 50 MG tab] 50 mg PO Q4HR PRN #14 tablet 07/09/18 Unknown Rx Tramadol HCl [Ultram] 50 mg PO Q8HR #10 tablet 09/07/18 Unknown Rx Allergies Allergy/AdvReac Type Severity Reaction Status Date / Time aspirin AdvReac Mild ON THINNERS Verified 06/03/14 18:10 ED Review of Systems ROS: Stated complaint: LOWER LEFT KNEE PAIN/LEG/ANKLE SWOLLEN Other details as noted in HPI Constitutional: denies: chills, fever Eyes: denies: eye pain, eye discharge, vision change ENT: denies: ear pain, throat pain Respiratory: denies: cough, shortness of breath, wheezing Cardiovascular: denies: chest pain, palpitations Endocrine: no symptoms reported Gastrointestinal: denies: abdominal pain, nausea, diarrhea Genitourinary: denies: urgency, dysuria, discharge Musculoskeletal: arthralgia. denies: back pain, joint swelling Skin: denies: rash, lesions Neurological: denies: headache, weakness, paresthesias Psychiatric: denies: anxiety, depression Hematological/Lymphatic: denies: easy bleeding, easy bruising ED Past Medical Hx - Past Medical History Previous Medical History?: Yes Hx Hypertension: Yes (FOR 7 YRS) Hx Heart Attack/AMI: No Hx Congestive Heart Failure: No Hx Diabetes: Yes (FOR 20 YRS) Hx Deep Vein Thrombosis: Yes (IVC filter placement 2008) Hx Pulmonary Embolism: Yes (IN 2002) Hx GERD: Yes Hx Liver Disease: No Hx Renal Disease: No Hx Sickle Cell Disease: No Hx Arthritis: Yes Hx Seizures: No Hx Kidney Stones: No Hx Asthma: Yes Hx COPD: No Hx Tuberculosis: No Hx Dementia: No Hx HIV: No Additional medical history: CAD. UNSTABLE ANGINA. sacroidosis. neuropathy - Surgical History Past Surgical History?: Yes Hx Coronary Stent: No Hx Pacemaker: No Hx Internal Defibrillator: No Hx Cholecystectomy: Yes (LAP IN 1997) Additional Surgical History: IVC FILTER. TUBAL LIGATION. TMJ SURGERY - Social History Smoking Status: Never Smoker Substance Use Type: None - Medications Home Medications: Home Medications Medication Instructions Recorded Confirmed Last Taken Type Insulin Aspart [NovoLOG Flexpen] 1 units SQ BID PRN 02/13/13 12/30/16 02/17/15 History Insulin Glargine,Hum.rec.anlog 50 unit SQ QHS 02/13/13 12/30/16 02/17/15 History [Lantus Solostar] Pantoprazole [Protonix TAB] 40 mg PO QDAY 02/13/13 12/30/16 02/17/15 History Promethazine HCl [Promethazine TAB] 12.5 mg PO Q8HR PRN 02/13/13 12/30/16 02/17/15 History Valacyclovir HCl [valACYclovir] 1,000 mg PO QDAY 02/13/13 12/30/16 02/17/15 History clonazePAM [KlonoPIN] 1 mg PO Q8HR PRN 02/13/13 12/30/16 02/17/15 History metFORMIN [Glucophage] 1,000 mg PO BID #30 tab 02/13/13 12/30/16 02/17/15 Rx Enoxaparin [Lovenox] 80 mg SQ Q12HR 02/17/15 12/30/16 02/17/15 History HYDROcodone/APAP 7.5-325 [[place] 1 each PO Q8HR PRN 02/17/15 12/30/16 02/17/15 History 7.5-325 mg TAB] Ipratropium/Albuterol Sulfate 1 ampul IH Q4HR 02/17/15 12/30/16 02/17/15 History [DUONEB *Not for PRN Use*] Pregabalin [Lyrica] 75 mg PO BID 02/17/15 12/30/16 02/17/15 History Ranitidine HCl [Zantac] 150 mg PO QHS 02/17/15 12/30/16 02/17/15 History Sitagliptin Phosphate [Januvia] 100 mg PO QDAY 02/17/15 12/30/16 02/17/15 History amLODIPine [Norvasc] 5 mg PO DAILY 02/17/15 12/30/16 02/17/15 History diazePAM [Diazepam] 5 mg PO QHS 02/17/15 12/30/16 02/17/15 History ALBUTEROL Inhaler (OR & NICU) 2 puff IH QID PRN #1 inhalation 12/30/16 Unknown Rx [ProAir HFA Inhaler] HYDROcodone/APAP 5-325 [[place] 1 - 2 each PO Q6HR PRN #14 tablet 12/30/16 Unknown Rx 5-325 mg TAB] Azithromycin [Zithromax Z-SHERWIN] 1 dose PO DAILY #1 pack 08/10/17 Unknown Rx Budesonide/Formoterol Fumarate 1 dose IH BID #1 unit 08/10/17 Unknown Rx [Symbicort 160-4.5 Mcg Inhaler] methylPREDNISolone [Medrol Dose 1 dose PO DAILY #1 pack 08/10/17 Unknown Rx Sherwin] Acetaminophen/Codeine [Tylenol 1 tab PO Q4HR PRN #12 tablet 06/11/18 Unknown Rx /Codeine # 3 tab] Codeine Phosphate/Guaifenesin 10 ml PO Q12HR PRN #180 liquid 06/11/18 Unknown Rx [Guaifen-Codeine 200-20 mg/10Ml] Ipratropium/Albuterol Sulfate 1 ampul IH Q6HR PRN #30 ampul.neb 06/11/18 Unknown Rx [DUONEB *Not for PRN Use*] levoFLOXacin [Levaquin] 750 mg PO QDAY #10 tablet 06/11/18 Unknown Rx Acetaminophen 500 mg PO Q8H PRN #20 tablet 06/12/18 Unknown Rx Cyclobenzaprine [Flexeril] 10 mg PO QHS PRN #10 tablet 06/12/18 Unknown Rx Ondansetron [Zofran Odt] 4 mg PO Q8HR PRN #14 tab.rapdis 07/09/18 Unknown Rx guaiFENesin/CODEINE [Robitussin AC] 10 ml PO TID PRN #100 ml 07/09/18 Unknown Rx levoFLOXacin [Levaquin TAB] 500 mg PO QDAY #7 tablet 07/09/18 Unknown Rx traMADol [Ultram 50 MG tab] 50 mg PO Q4HR PRN #14 tablet 07/09/18 Unknown Rx Tramadol HCl [Ultram] 50 mg PO Q8HR #10 tablet 09/07/18 Unknown Rx ED Physical Exam - General Limitations: No Limitations General appearance: alert, in no apparent distress - Head Head exam: Present: atraumatic, normocephalic - Eye Eye exam: Present: normal appearance - ENT ENT exam: Present: mucous membranes moist - Neck Neck exam: Present: normal inspection - Respiratory Respiratory exam: Present: normal lung sounds bilaterally. Absent: respiratory distress - Cardiovascular Cardiovascular Exam: Present: regular rate, normal rhythm. Absent: systolic murmur, diastolic murmur, rubs, gallop - GI/Abdominal GI/Abdominal exam: Present: soft, normal bowel sounds - Extremities Exam Extremities exam: Present: normal inspection, tenderness, normal capillary refill, other (no homans sign or cord sign. no edema noted. no redness or rash. no popliteral mass or tenerness. pulse 2+). Absent: pedal edema, joint swelling - Back Exam Back exam: Present: normal inspection, full ROM. Absent: muscle spasm, paraspinal tenderness - Neurological Exam Neurological exam: Present: alert, oriented X3 - Psychiatric Psychiatric exam: Present: normal affect, normal mood - Skin Skin exam: Present: warm, dry, intact, normal color. Absent: rash ED Course Vital Signs 09/07/18 09/07/18 09/07/18 13:01 19:12 19:13 Temperature 98.2 F 98.4 F Pulse Rate 100 H 80 Respiratory 16 18 18 Rate Blood Pressure 157/85 Blood Pressure 141/88 [Right] O2 Sat by Pulse 98 97 Oximetry ED Medical Decision Making - Lab Data Result diagrams: 09/07/18 19:08 09/07/18 19:08 Critical care attestation.: If time is entered above; I have spent that time in minutes in the direct care of this critically ill patient, excluding procedure time. ED Disposition Clinical Impression: Chronic knee pain, Lower extremity neuropathy Disposition: - TO HOME OR SELFCARE Is pt being admited?: No Does the pt Need Aspirin: No Condition: Stable Instructions: Peripheral Neuropathy (ED), Lumbar Radiculopathy (ED), Arthralgia (ED) Prescriptions: Tramadol HCl [Ultram] 50 mg PO Q8HR #10 tablet Referrals: [facility] [Other] - 3-5 Days
== END 2018-09-07 21:00 | disposition home or self-care (01) ==
LOC: ED 12:55
DX: M25.562 Pain in left knee (principal); J45.909 Unspecified asthma, uncomplicated; M19.90 Unspecified osteoarthritis, unspecified site; K21.9 Gastro-esophageal reflux disease without esophagitis; I10 Essential (primary) hypertension; I20.0 Unstable angina; E11.40 Type 2 diabetes mellitus with diabetic neuropathy, unspecified; Z86.711 Personal history of pulmonary embolism; Z79.4 Long term (current) use of insulin; Z88.6 Allergy status to analgesic agent; Z86.718 Personal history of other venous thrombosis and embolism; Z90.49 Acquired absence of other specified parts of digestive tract; Z98.51 Tubal ligation status
CPT/HCPCS: 36415; 80053; 81001; 85007; 85025; 99284; Q0162

== ENCOUNTER 2018-10-08 09:54 | Outpatient (CLI) | payer MEDICARE ==
--- NOTE | 2018-10-08 18:45 | Magnetic Resonance Report ---
HISTORY: CERVICALGIA, LOW BACK PAIN, PROCEDURE: MRI CERVICAL SPINE WITHOUT IV CONTRAST TECHNIQUE: MRI examination of the cervical spine without IV contrast COMPARISONS: Cervical spine radiographs 06/12/2018 FINDINGS: Cervical cord and visualized upper portion of the thoracic cord: Normal Bone marrow edema: None Vertebral compression fracture: None Anterolisthesis: None Retrolisthesis: None Disc narrowing: C5-6 slight C6-7 slight Diffuse disc bulge: C5-6 slight, C6-7 slight Focal disc protrusion: None Central canal stenosis: None There is multi level degenerative hypertrophic changes at the facet joints, uncinate joints, and vertebral end plates. Along with disc bulge, these contribute to neural foraminal stenosis. Right neural foraminal stenosis: C3-4 slight, C4-5 slight, C5-6 slight Left neural foraminal stenosis: C5-6 slight Minimal cervical kyphosis, nonspecific. IMPRESSION: Minimal cervical kyphosis may be from slight degenerative disc and joint disease. Differential includ es cervical spinal Multilevel slight degenerative change, slight disc narrowing, slight diffuse disc bulge, and slight n eural foraminal stenosis This document is electronically signed by Rajesh Robert MD., Oct 08 2018 06:43:29 PM ET
--- NOTE | 2018-10-08 18:53 | Magnetic Resonance Report ---
HISTORY: CERVICALGIA, LOW BACK PAIN, PROCEDURE: MRI LUMBAR SPINE WITHOUT IV CONTRAST TECHNIQUE: MRI examination of the lumbar spine without IV contrast COMPARISONS: MRI lumbar spine 09/17/[address] 08/13/2017 FINDINGS: 5 anatomic lumbar vertebra on comparison CT. Vertebral hemangioma right side of L4 vertebral body. Conus medullaris signal and position: Normal Marrow signal changes adjacent to the following disc levels, likely from degenerative disc disease: None Bone marrow edema: None Vertebral compression fracture: None Anterolisthesis: None Retrolisthesis: None Disc narrowing: None Diffuse disc bulge: L3-4 slight, L4-5 slight Focal disc protrusion: None Central canal stenosis: L3-4 minimal, L4-5 slight Lateral recess stenosis: L3-4 slight bilateral, L4-5 slight bilateral There is multi level degenerative hypertrophic changes at the facet joints and vertebral end plates. Along with disc bulge, these contribute to neural foraminal stenosis. Right neural foraminal stenosis: L3-4 slight, L4-5 slight, L5-S1 minimal Left neural foraminal stenosis: L4-5 slight to moderate IMPRESSION: Multilevel degenerative change, slight diffuse disc bulge, minimal to slight central canal stenosis, and slight lateral recess stenosis, and minimal to moderate neural foraminal stenosis This document is electronically signed by Rajesh Robert MD., Oct 08 2018 06:51:17 PM ET
== END 2018-10-08 09:55 | disposition home or self-care (01) ==
LOC: MRI 09:54
PROVIDERS: ATTEND Orthopaedic Surgery
DX: M47.816 Spondylosis without myelopathy or radiculopathy, lumbar region (principal); M48.061 Spinal stenosis, lumbar region without neurogenic claudication; M50.30 Other cervical disc degeneration, unspecified cervical region; M40.292 Other kyphosis, cervical region; M47.812 Spondylosis without myelopathy or radiculopathy, cervical region; M48.02 Spinal stenosis, cervical region; I25.10 Atherosclerotic heart disease of native coronary artery without angina pectoris; E78.00 Pure hypercholesterolemia, unspecified; J45.909 Unspecified asthma, uncomplicated; K21.9 Gastro-esophageal reflux disease without esophagitis; I10 Essential (primary) hypertension
CPT/HCPCS: 72141; 72148

== ENCOUNTER 2019-01-06 08:59 | Emergency (ER) | payer MEDICARE ==
[2019-01-06] MEDS ORDERED: ZOFRAN ODT PO ONE (11:31)
[2019-01-06] MEDS ORDERED: SOLU-Medrol IM ONE (11:31)
[2019-01-06] MEDS ORDERED: MORPHINE IM ONE (11:31)
--- NOTE | 2019-01-06 11:38 | Emergency Department Report ---
ED General Adult HPI - General Chief complaint: Back Pain/Injury Stated complaint: LFT LOW BACK/HIP/PELVIS PAIN Time Seen by Provider: 01/06/19 10:37 Source: patient Mode of arrival: Ambulatory Limitations: No Limitations - History of Present Illness Initial comments: Patient presents to the emergency department with a chief complaint of back pain that radiates through to her left buttock into her left leg in the front and back aspects. Patient states the pain started 3 days ago and describes it as neurological sensation made worse by movement. Patient denies any issues with her bladder or bowels. Patient denies any recent trauma, fall, MVC within the last week. -: Gradual Location: lower extremity Radiation: distal Severity scale (0 -10): 8 Quality: sharp Consistency: intermittent Improves with: rest Worsens with: movement Associated Symptoms: denies other symptoms Treatments Prior to Arrival: none - Related Data Home Medications Medication Instructions Recorded Confirmed Last Taken Insulin Aspart [NovoLOG Flexpen] 1 units SQ BID PRN 02/13/13 12/30/16 02/17/15 Insulin Glargine,Hum.rec.anlog 50 unit SQ QHS 02/13/13 12/30/16 02/17/15 [Lantus Solostar] Pantoprazole [Protonix TAB] 40 mg PO QDAY 02/13/13 12/30/16 02/17/15 Promethazine HCl [Promethazine TAB] 12.5 mg PO Q8HR PRN 02/13/13 12/30/16 02/17/15 Valacyclovir HCl [valACYclovir] 1,000 mg PO QDAY 02/13/13 12/30/16 02/17/15 clonazePAM [KlonoPIN] 1 mg PO Q8HR PRN 02/13/13 12/30/16 02/17/15 Enoxaparin [Lovenox] 80 mg SQ Q12HR 02/17/15 12/30/16 02/17/15 HYDROcodone/APAP 7.5-325 [[place] 1 each PO Q8HR PRN 02/17/15 12/30/16 02/17/15 7.5-325 mg TAB] Ipratropium/Albuterol Sulfate 1 ampul IH Q4HR 02/17/15 12/30/16 02/17/15 [DUONEB *Not for PRN Use*] Pregabalin [Lyrica] 75 mg PO BID 02/17/15 12/30/16 02/17/15 Sitagliptin Phosphate [Januvia] 100 mg PO QDAY 02/17/15 12/30/16 02/17/15 amLODIPine [Norvasc] 5 mg PO DAILY 02/17/15 12/30/16 02/17/15 diazePAM [Diazepam] 5 mg PO QHS 02/17/15 12/30/16 02/17/15 raNITIdine HCl [Zantac] 150 mg PO QHS 02/17/15 12/30/16 02/17/15 Previous Rx's Medication Instructions Recorded Last Taken Type metFORMIN [Glucophage] 1,000 mg PO BID #30 tab 02/13/13 02/17/15 Rx ALBUTEROL Inhaler (OR & NICU) 2 puff IH QID PRN #1 inhalation 12/30/16 Unknown Rx [ProAir HFA Inhaler] HYDROcodone/APAP 5-325 [[place] 1 - 2 each PO Q6HR PRN #14 tablet 12/30/16 Unknown Rx 5-325 mg TAB] Azithromycin [Zithromax Z-SHERWIN] 1 dose PO DAILY #1 pack 08/10/17 Unknown Rx Budesonide/Formoterol Fumarate 1 dose IH BID #1 unit 08/10/17 Unknown Rx [Symbicort 160-4.5 Mcg Inhaler] methylPREDNISolone [Medrol Dose 1 dose PO DAILY #1 pack 08/10/17 Unknown Rx Sherwin] Acetaminophen/Codeine [Tylenol 1 tab PO Q4HR PRN #12 tablet 06/11/18 Unknown Rx /Codeine # 3 tab] Codeine Phosphate/Guaifenesin 10 ml PO Q12HR PRN #180 liquid 06/11/18 Unknown Rx [Guaifen-Codeine 200-20 mg/10Ml] Ipratropium/Albuterol Sulfate 1 ampul IH Q6HR PRN #30 ampul.neb 06/11/18 Unknown Rx [DUONEB *Not for PRN Use*] levoFLOXacin [Levaquin] 750 mg PO QDAY #10 tablet 06/11/18 Unknown Rx Acetaminophen 500 mg PO Q8H PRN #20 tablet 06/12/18 Unknown Rx Cyclobenzaprine [Flexeril] 10 mg PO QHS PRN #10 tablet 06/12/18 Unknown Rx Ondansetron [Zofran Odt] 4 mg PO Q8HR PRN #14 tab.rapdis 07/09/18 Unknown Rx guaiFENesin/CODEINE [Robitussin AC] 10 ml PO TID PRN #100 ml 07/09/18 Unknown Rx levoFLOXacin [Levaquin TAB] 500 mg PO QDAY #7 tablet 07/09/18 Unknown Rx traMADol [Ultram 50 MG tab] 50 mg PO Q4HR PRN #14 tablet 07/09/18 Unknown Rx Tramadol HCl [Ultram] 50 mg PO Q8HR #10 tablet 09/07/18 Unknown Rx HYDROcodone/APAP 7.5-325 [[place] 1 each PO Q6HR PRN #15 tablet 01/06/19 Unknown Rx 7.5/325] Ibuprofen [Motrin] 800 mg PO Q8HR PRN #30 tablet 01/06/19 Unknown Rx predniSONE [Deltasone] 20 mg PO DAILY #15 tablet 01/06/19 Unknown Rx Allergies Allergy/AdvReac Type Severity Reaction Status Date / Time aspirin AdvReac Mild ON THINNERS Verified 06/03/14 18:10 ED Review of Systems ROS: Stated complaint: LFT LOW BACK/HIP/PELVIS PAIN Other details as noted in HPI Constitutional: denies: chills, fever Eyes: denies: eye pain, eye discharge, vision change ENT: denies: ear pain, throat pain Respiratory: denies: cough, shortness of breath, wheezing Cardiovascular: denies: chest pain, palpitations Endocrine: no symptoms reported Gastrointestinal: denies: abdominal pain, nausea, diarrhea Genitourinary: denies: urgency, dysuria, discharge Musculoskeletal: back pain. denies: joint swelling, arthralgia Skin: denies: rash, lesions Neurological: denies: headache, weakness, paresthesias Psychiatric: denies: anxiety, depression Hematological/Lymphatic: denies: easy bleeding, easy bruising ED Past Medical Hx - Past Medical History Hx Hypertension: Yes (FOR 7 YRS) Hx Heart Attack/AMI: No Hx Congestive Heart Failure: No Hx Diabetes: Yes (FOR 20 YRS) Hx Deep Vein Thrombosis: Yes (IVC filter placement 2008) Hx Pulmonary Embolism: Yes (IN 2002) Hx GERD: Yes Hx Liver Disease: No Hx Renal Disease: No Hx Sickle Cell Disease: No Hx Arthritis: Yes Hx Seizures: No Hx Kidney Stones: No Hx Asthma: Yes Hx COPD: No Hx Tuberculosis: No Hx Dementia: No Hx HIV: No Additional medical history: CAD. UNSTABLE ANGINA. sacroidosis. neuropathy - Surgical History Past Surgical History?: Yes Hx Coronary Stent: No Hx Pacemaker: No Hx Internal Defibrillator: No Hx Cholecystectomy: Yes (LAP IN 1997) Additional Surgical History: IVC FILTER. TUBAL LIGATION. TMJ SURGERY - Social History Smoking Status: Current Every Day Smoker Substance Use Type: None - Medications Home Medications: Home Medications Medication Instructions Recorded Confirmed Last Taken Type Insulin Aspart [NovoLOG Flexpen] 1 units SQ BID PRN 02/13/13 12/30/16 02/17/15 History Insulin Glargine,Hum.rec.anlog 50 unit SQ QHS 02/13/13 12/30/16 02/17/15 History [Lantus Solostar] Pantoprazole [Protonix TAB] 40 mg PO QDAY 02/13/13 12/30/16 02/17/15 History Promethazine HCl [Promethazine TAB] 12.5 mg PO Q8HR PRN 02/13/13 12/30/16 02/17/15 History Valacyclovir HCl [valACYclovir] 1,000 mg PO QDAY 02/13/13 12/30/16 02/17/15 History clonazePAM [KlonoPIN] 1 mg PO Q8HR PRN 02/13/13 12/30/16 02/17/15 History metFORMIN [Glucophage] 1,000 mg PO BID #30 tab 02/13/13 12/30/16 02/17/15 Rx Enoxaparin [Lovenox] 80 mg SQ Q12HR 02/17/15 12/30/16 02/17/15 History HYDROcodone/APAP 7.5-325 [[place] 1 each PO Q8HR PRN 02/17/15 12/30/16 02/17/15 History 7.5-325 mg TAB] Ipratropium/Albuterol Sulfate 1 ampul IH Q4HR 02/17/15 12/30/16 02/17/15 History [DUONEB *Not for PRN Use*] Pregabalin [Lyrica] 75 mg PO BID 02/17/15 12/30/16 02/17/15 History Sitagliptin Phosphate [Januvia] 100 mg PO QDAY 02/17/15 12/30/16 02/17/15 History amLODIPine [Norvasc] 5 mg PO DAILY 02/17/15 12/30/16 02/17/15 History diazePAM [Diazepam] 5 mg PO QHS 02/17/15 12/30/16 02/17/15 History raNITIdine HCl [Zantac] 150 mg PO QHS 02/17/15 12/30/16 02/17/15 History ALBUTEROL Inhaler (OR & NICU) 2 puff IH QID PRN #1 inhalation 12/30/16 Unknown Rx [ProAir HFA Inhaler] HYDROcodone/APAP 5-325 [[place] 1 - 2 each PO Q6HR PRN #14 tablet 12/30/16 Unknown Rx 5-325 mg TAB] Azithromycin [Zithromax Z-SHERWIN] 1 dose PO DAILY #1 pack 08/10/17 Unknown Rx Budesonide/Formoterol Fumarate 1 dose IH BID #1 unit 08/10/17 Unknown Rx [Symbicort 160-4.5 Mcg Inhaler] methylPREDNISolone [Medrol Dose 1 dose PO DAILY #1 pack 08/10/17 Unknown Rx Sherwin] Acetaminophen/Codeine [Tylenol 1 tab PO Q4HR PRN #12 tablet 06/11/18 Unknown Rx /Codeine # 3 tab] Codeine Phosphate/Guaifenesin 10 ml PO Q12HR PRN #180 liquid 06/11/18 Unknown Rx [Guaifen-Codeine 200-20 mg/10Ml] Ipratropium/Albuterol Sulfate 1 ampul IH Q6HR PRN #30 ampul.neb 06/11/18 Unknown Rx [DUONEB *Not for PRN Use*] levoFLOXacin [Levaquin] 750 mg PO QDAY #10 tablet 06/11/18 Unknown Rx Acetaminophen 500 mg PO Q8H PRN #20 tablet 06/12/18 Unknown Rx Cyclobenzaprine [Flexeril] 10 mg PO QHS PRN #10 tablet 06/12/18 Unknown Rx Ondansetron [Zofran Odt] 4 mg PO Q8HR PRN #14 tab.rapdis 07/09/18 Unknown Rx guaiFENesin/CODEINE [Robitussin AC] 10 ml PO TID PRN #100 ml 02/27/19 Unknown Rx levoFLOXacin [Levaquin TAB] 500 mg PO QDAY #7 tablet 07/09/18 Unknown Rx traMADol [Ultram 50 MG tab] 50 mg PO Q4HR PRN #14 tablet 07/09/18 Unknown Rx Tramadol HCl [Ultram] 50 mg PO Q8HR #10 tablet 09/07/18 Unknown Rx HYDROcodone/APAP 7.5-325 [[place] 1 each PO Q6HR PRN #15 tablet 01/06/19 Unknown Rx 7.5/325] Ibuprofen [Motrin] 800 mg PO Q8HR PRN #30 tablet 01/06/19 Unknown Rx predniSONE [Deltasone] 20 mg PO DAILY #15 tablet 01/06/19 Unknown Rx ED Physical Exam - General Limitations: No Limitations General appearance: alert, in no apparent distress - Head Head exam: Present: atraumatic, normocephalic - Eye Eye exam: Present: normal appearance, PERRL, EOMI - ENT ENT exam: Present: mucous membranes moist - Neck Neck exam: Present: normal inspection - Respiratory Respiratory exam: Present: normal lung sounds bilaterally. Absent: respiratory distress - Cardiovascular Cardiovascular Exam: Present: regular rate, normal rhythm. Absent: systolic murmur, diastolic murmur, rubs, gallop - GI/Abdominal GI/Abdominal exam: Present: soft, normal bowel sounds - Extremities Exam Extremities exam: Present: normal inspection, other (tender to palpation and sciatica nerve outlet left side with recreation of symptoms) - Back Exam Back exam: Present: normal inspection - Neurological Exam Neurological exam: Present: alert, oriented X3, CN II-XII intact. Absent: motor sensory deficit - Psychiatric Psychiatric exam: Present: normal affect, normal mood - Skin Skin exam: Present: warm, dry, intact, normal color. Absent: rash ED Course Vital Signs 01/06/19 09:10 Temperature 98.4 F Pulse Rate 89 Respiratory 20 Rate Blood Pressure 145/81 O2 Sat by Pulse 98 Oximetry Critical care attestation.: If time is entered above; I have spent that time in minutes in the direct care of this critically ill patient, excluding procedure time. ED Disposition Clinical Impression: Sciatica Disposition: [id number]-01 TO HOME OR SELFCARE Is pt being admited?: No Does the pt Need Aspirin: No Condition: Stable Instructions: Sciatica (ED) Additional Instructions: return if worse Prescriptions: predniSONE [Deltasone] 20 mg PO DAILY #15 tablet Ibuprofen [Motrin] 800 mg PO Q8HR PRN #30 tablet PRN Reason: Pain HYDROcodone/APAP 7.5-325 [[place] 7.5/325] 1 each PO Q6HR PRN #15 tablet PRN Reason: Pain Referrals: [facility] [Provider Group] - 3-5 Days [facility] [Provider Group] - 3-5 Days
[2019-01-06 12:37] VITALS: BP 137/88
== END 2019-01-06 12:08 | disposition home or self-care (01) ==
LOC: ED 08:59
DX: M54.30 Sciatica, unspecified side (principal); I10 Essential (primary) hypertension; K21.9 Gastro-esophageal reflux disease without esophagitis; J45.909 Unspecified asthma, uncomplicated; M19.90 Unspecified osteoarthritis, unspecified site; I20.0 Unstable angina; F17.200 Nicotine dependence, unspecified, uncomplicated; E11.40 Type 2 diabetes mellitus with diabetic neuropathy, unspecified; Z88.6 Allergy status to analgesic agent; Z86.711 Personal history of pulmonary embolism; Z86.718 Personal history of other venous thrombosis and embolism; Z79.4 Long term (current) use of insulin; Z79.899 Other long term (current) drug therapy; Z79.84 Long term (current) use of oral hypoglycemic drugs; Z90.49 Acquired absence of other specified parts of digestive tract; Z98.51 Tubal ligation status
CPT/HCPCS: 96372; 99282; J2270; J2930; Q0162

== ENCOUNTER 2019-04-17 08:09 | Outpatient (CLI) | payer MEDICARE ==
--- NOTE | 2019-04-17 09:24 | Ultrasound Report ---
ULTRASOUND THYROID HISTORY: Thyroid malignancy. COMPARISON: None at this facility. TECHNIQUE: Grayscale ultrasound with color Doppler interrogation. FINDINGS: The right lobe measures 6.1 x 2.0 x 1.8 cm. No focal cyst or mass. The left lobe measures 5.2 x 1.8 x 1.6 cm. A 1.3 x 0.9 x 1.1 cm isoechoic solid nodule with a hypoech oic border is noted in the mid left thyroid lobe. The isthmus measures 0.6 cm in thickness. A 1.1 x 0.5 x 1.1 cm ill-defined slightly hypoechoic nodule is noted in the left side of the isthmus. IMPRESSION: Thyroid nodules as described. Signer Name: Arslan Snow Jr, MD Signed: 04/17/2019 9:19 AM Workstation Name: [id number]
== END 2019-04-17 08:10 | disposition home or self-care (01) ==
LOC: US 08:09
PROVIDERS: ATTEND Internal Medicine
DX: E04.2 Nontoxic multinodular goiter (principal); K21.9 Gastro-esophageal reflux disease without esophagitis; Z85.850 Personal history of malignant neoplasm of thyroid; Z88.8 Allergy status to other drugs, medicaments and biological substances
CPT/HCPCS: 76536

== ENCOUNTER 2019-05-18 14:09 | Outpatient (CLI) | payer MEDICARE ==
[2019-05-18 14:44] LABS: Basophils # (Auto) 0.1 K/mm3 (0.0-0.1); Basophils % (Auto) 0.9 % (0.0-1.8); Eosinophils # (Auto) 0.3 K/mm3 (0.0-0.4); Eosinophils % (Auto) 2.9 % (0.0-4.3); Hematocrit 40.9 % (30.3-42.9); Hemoglobin 14.5 gm/dl (10.1-14.3); Lymphocytes # (Auto) 4.2 K/mm3 (1.2-5.4); Lymphocytes % (Auto) 39.6 % (13.4-35.0); Mean Corpuscular HGB Conc 35 % (30-34); Mean Corpuscular Volume 92 fl (79-97); Monocytes # (Auto) 0.5 K/mm3 (0.0-0.8); Monocytes % (Auto) 4.5 % (0.0-7.3); Platelet Count 314 K/mm3 (140-440); Red Blood Count 4.43 M/mm3 (3.65-5.03); Red Cell Distribution Width 12.7 % (13.2-15.2)
[2019-05-18 15:03] LABS: Alanine Aminotransferase 44 units/L (7-56); BUN/Creatinine Ratio 12; Blood Urea Nitrogen 6 mg/dL (7-17); HDL Cholesterol 46 mg/dL (40-59); Hemolysis Index 4; LDL Cholesterol,Direct 70 mg/dL (50-130)
== END 2019-05-18 14:10 | disposition home or self-care (01) ==
LOC: LAB 14:09
PROVIDERS: ATTEND Internal Medicine
DX: J44.9 Chronic obstructive pulmonary disease, unspecified (principal); D86.9 Sarcoidosis, unspecified; J20.9 Acute bronchitis, unspecified; I10 Essential (primary) hypertension
CPT/HCPCS: 36415; 36600; 80053; 80061; 82164; 82785; 82803; 84436; 84443; 85025

== ENCOUNTER 2019-06-25 08:42 | Emergency (ER) | payer MEDICARE ==
[2019-06-25 08:51] VITALS: BP 119/68
--- NOTE | 2019-06-25 09:20 | Emergency Department Report ---
Chief Complaint: Earache Stated Complaint: PAIN IN (L) EAR/HEADACHE Time Seen by Provider: 06/25/19 09:15 - HPI History of Present Illness: 53-year-old Maldivian female resents emerged department complaining of reemergence of pain to her left TMJ region. Has a history of having TMJ surgery with locking. The pain starts to her TMJ region and radiates to the left ear is worse with opening and closing and palpation around the joint line. Reports no fever, chills, sweats no chest pain palpitations no odynophagia or dysphagia no change in voice no ear discharge no rashes. - Exam Vital Signs: Vital Signs 06/25/19 08:48 Temperature 98.2 F Pulse Rate 100 H Respiratory 18 Rate Blood Pressure 119/68 O2 Sat by Pulse 98 Oximetry Physical Exam: All systems are negative except except as reported in HPI HEENT pupils are PERRLA EOMI oropharynx is moist airway patent tongue and uvula are midline. There is some tenderness with palpation to the left TMJ region. Ears are clear and no swelling no erythema no discharge no mastoid tenderness. No signs of trauma. Neck is supple no lymphadenopathy. Chest clear to auscultation heart regular rate and rhythm neuro alert and oriented x3 cranial nerves II through XII intact of sound judgment. MSE screening note: Focused history and physical exam performed. Due to findings the following was ordered: ED Disposition for MSE Clinical Impression: TMJ arthralgia Disposition: Z-01 MED SCREENING EXAM-CONT Condition: Stable Instructions: Temporomandibular Disorder (ED) Referrals: [facility] [Provider Group] - 3-5 Days
== END 2019-06-25 09:29 | disposition left against medical advice (07) ==
LOC: ED 08:42
DX: M26.601 Right temporomandibular joint disorder, unspecified (principal)
CPT/HCPCS: 99281

== ENCOUNTER 2019-12-31 09:11 | Outpatient (CLI) | payer MEDICARE ==
[2019-12-31 10:02] LABS: Blood Urea Nitrogen 9 mg/dL (7-17)
--- NOTE | 2019-12-31 12:13 | Cat Scan Report ---
CT abdomen pelvis w con INDICATION: MAIN. TECHNIQUE: All CT scans at this location are performed using CT dose reduction for ALARA by means of automated e xposure control. COMPARISON: 08/13/2017 FINDINGS: Imaging through the lung bases shows chronic disease with mild groundglass density, suggesting inters titial disease, possibly interstitial edema. No pleural fluid. The appearance has not changed in 2 ye ars. Cholecystectomy. Liver, spleen, pancreas, kidneys and adrenals are negative. IVC filter in position. Abdominal aorta is normal in size. No adenopathy. Pelvis Normal appendix. Urinary bladder and uterus appear unremarkable. No free fluid or inflammation. The IVC and venous structures in the pelvis do not contain significant contrast, so I cannot evaluate for venous thrombus or other venous abnormalities. No skeletal lesions. IMPRESSION: 1. No acute intra-abdominal abnormalities identified. There is not sufficient contrast in the IVC or pelvic venous structures to evaluate for thrombus. There is no evidence of significant compression of the IVC or iliac veins. Signer Name: Tee Alford MD Signed: 12/31/2019 12:08 PM Workstation Name: [id number]
== END 2019-12-31 09:12 | disposition home or self-care (01) ==
LOC: CT 09:11
PROVIDERS: ATTEND Surgery Vascular Surgery
DX: I82.592 Chronic embolism and thrombosis of other specified deep vein of left lower extremity (principal); J98.4 Other disorders of lung; M54.6 Pain in thoracic spine; R10.9 Unspecified abdominal pain
CPT/HCPCS: 36415; 74177; 82565; 84520; Q9967

== ENCOUNTER 2020-04-22 12:02 | Outpatient (CLI) | payer MEDICARE ==
[2020-04-22 12:54] LABS: Hematocrit 39.7 % (30.3-42.9); Hemoglobin 13.5 gm/dl (10.1-14.3); Mean Corpuscular HGB Conc 34 % (30-34); Mean Corpuscular Volume 96 fl (79-97); Platelet Count 332 K/mm3 (140-440); Red Blood Count 4.16 M/mm3 (3.65-5.03); Red Cell Distribution Width 12.4 % (13.2-15.2)
[2020-04-22 13:34] LABS: Alanine Aminotransferase 59 units/L (7-56); Albumin 3.9 g/dL (3.9-5); Blood Urea Nitrogen 8 mg/dL (7-17); Calcium 9.6 mg/dL (8.4-10.2); Chol/HDL Ratio 1.94 %; HDL Cholesterol 70 mg/dL (40-59); Hemolysis Index 0; LDL Cholesterol,Direct 63 mg/dL (50-130)
[2020-04-22 13:39] LABS: BUN/Creatinine Ratio 13
[2020-04-22 13:39] LABS: ABG Base Excess 1.6 mmol/L (-2.0-3.0); ABG HCO3 26.3 mmol/L (20.0-26.0); ABG Methemoglobin 0.5 % (0.0-1.5); ABG Oxygen Saturation 97.5 % (95.0-99.0); ABG PCO2 41.6 mm Hg; ABG PH 7.419 pH Units (7.350-7.450); ABG PO2 96.1 mm Hg (80.0-90.0)
== END 2020-04-22 12:03 | disposition home or self-care (01) ==
LOC: LAB 12:02
PROVIDERS: ATTEND Internal Medicine
DX: J44.9 Chronic obstructive pulmonary disease, unspecified (principal); D86.9 Sarcoidosis, unspecified; J30.9 Allergic rhinitis, unspecified; Z68.34 Body mass index [BMI] 34.0-34.9, adult; K21.9 Gastro-esophageal reflux disease without esophagitis; I10 Essential (primary) hypertension
CPT/HCPCS: 36415; 36600; 80053; 80061; 82164; 82803; 84436; 84443; 85027

== ENCOUNTER 2020-07-08 16:54 | Emergency (ER) | payer MEDICARE ==
--- NOTE | 2020-07-08 18:07 | Event Note ---
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 Further treatment and workup at subsequent clinical providers discretion. Patient/guardian urged not to elope from the ED as their condition may be serious if not clinically assessed and managed. Initial orders include: labs, UA, CT abd pelvis
[2020-07-08 18:34] LABS: Bilirubin,Urine NEG (Negative); Blood,Urine NEG (Negative); Color,Urine Straw (Yellow); Protein,Urine <15 mg/dL mg/dL (Negative); RBC,Urine < 1.0 /HPF (0.0-6.0); Urobilinogen,Urine < 2.0 mg/dL (<2.0)
[2020-07-08 18:47] LABS: Basophils # (Auto) 0.1 K/mm3 (0.0-0.1); Basophils % (Auto) 0.6 % (0.0-1.8); Eosinophils # (Auto) 0.2 K/mm3 (0.0-0.4); Eosinophils % (Auto) 1.8 % (0.0-4.3); Hematocrit 41.9 % (30.3-42.9); Hemoglobin 14.5 gm/dl (10.1-14.3); Lymphocytes # (Auto) 4.3 K/mm3 (1.2-5.4); Lymphocytes % (Auto) 32.6 % (13.4-35.0); Mean Corpuscular HGB Conc 35 % (30-34); Mean Corpuscular Volume 95 fl (79-97); Monocytes # (Auto) 0.8 K/mm3 (0.0-0.8); Monocytes % (Auto) 5.9 % (0.0-7.3); Platelet Count 340 K/mm3 (140-440); Red Blood Count 4.41 M/mm3 (3.65-5.03); Red Cell Distribution Width 12.2 % (13.2-15.2)
[2020-07-08 18:56] LABS: Alanine Aminotransferase 58 units/L (7-56); Blood Urea Nitrogen 6 mg/dL (7-17); Calcium 9.8 mg/dL (8.4-10.2); Hemolysis Index 10
[2020-07-08 19:04] LABS: BUN/Creatinine Ratio 10
[2020-07-08] MEDS ORDERED: MORPHINE 4 MG/1 ML INJ IV ONE (21:08)
[2020-07-08] MEDS ORDERED: oxyCODONE /ACETAMINOPHEN 5-325MG TAB PO ONE (21:08)
--- NOTE | 2020-07-08 21:12 | Emergency Department Report ---
ED Abdominal Pain HPI - General Chief Complaint: Abdominal Pain Stated Complaint: RT SIDE PAIN/SWELLING PUI?: No Time Seen by Provider: 07/08/20 18:04 Source: patient Mode of arrival: Ambulatory Limitations: Other - History of Present Illness Initial Comments: Chief complaint: "I have pain in my back wrapping around." HPI: This is a 54-year-old female with history of sarcoidosis pulmonary embolism status post IVC on chronic anticoagulation Xarelto, insulin-dependent diabetes, cholecystectomy, arthritis, GERD, hypertension, coronary artery disease, neuropathy who presents with right flank pain radiating to the lower abdomen. Pain began 1 week ago. Dull. Patient also has had abdominal bloating. She has had weight gain. She is concerned about her kidney function. She was diagnosed with proteinuria and elevated hemoglobin A1c value [address] Tiago Hansen. Her endocrinology appointment has been scheduled for the beginning of August. Pain is persistent. Pain does not change with movement or palpation. No history of kidney stones. Surgeries include tubal ligation, IVC filter placement, cholecystectomy, TMJ surgery. MD Complaint: abdominal pain, flank pain -: week(s) (1 week ago) Location: R flank Radiation: LLQ, RLQ Migration to: LLQ, RLQ, R flank Severity: moderate Severity scale (0 -10): 7 Quality: dull Consistency: constant Improves With: nothing Worsens With: nothing Associated Symptoms: denies other symptoms - Related Data Home Medications Medication Instructions Recorded Confirmed Last Taken Insulin Aspart (Nf) [NovoLOG 1 units SQ BID PRN 02/13/13 12/30/16 02/17/15 Flexpen] Insulin Glargine,Hum.rec.anlog 50 unit SQ QHS 02/13/13 12/30/16 02/17/15 [Lantus Solostar] Pantoprazole [Protonix TAB] 40 mg PO QDAY 02/13/13 12/30/16 02/17/15 Promethazine HCl [Promethazine TAB] 12.5 mg PO Q8HR PRN 02/13/13 12/30/16 02/17/15 Valacyclovir HCl [valACYclovir] 1,000 mg PO QDAY 02/13/13 12/30/16 02/17/15 clonazePAM [KlonoPIN] 1 mg PO Q8HR PRN 02/13/13 12/30/16 02/17/15 Enoxaparin 80 mg SQ Q12HR 02/17/15 12/30/16 02/17/15 HYDROcodone/APAP 7.5-325 [Satsuma 1 each PO Q8HR PRN 02/17/15 12/30/16 02/17/15 7.5-325 mg TAB] Ipratropium/Albuterol Sulfate 1 ampul IH Q4HR 02/17/15 12/30/16 02/17/15 [DUONEB *Not for PRN Use*] Pregabalin 75 mg PO BID 02/17/15 12/30/16 02/17/15 Sitagliptin Phosphate [Januvia] 100 mg PO QDAY 02/17/15 12/30/16 02/17/15 amLODIPine 5 mg PO DAILY 02/17/15 12/30/16 02/17/15 diazePAM [Diazepam] 5 mg PO QHS 02/17/15 12/30/16 02/17/15 raNITIdine HCl [Zantac] 150 mg PO QHS 02/17/15 12/30/16 02/17/15 Previous Rx's Medication Instructions Recorded Last Taken Type metFORMIN [Glucophage] 1,000 mg PO BID #30 tab 02/13/13 02/17/15 Rx Albuterol Mdi (or & Nicu Only) 2 puff IH QID PRN #1 inhalation 12/30/16 Unknown Rx [ProAir HFA Inhaler] HYDROcodone/APAP 5-325 [Satsuma 1 - 2 each PO Q6HR PRN #14 tablet 12/30/16 Unknown Rx 5-325 mg TAB] Azithromycin [Zithromax Z-SHERWIN] 1 dose PO DAILY #1 pack 08/10/17 Unknown Rx Budesonide/Formoterol Fumarate 1 dose IH BID #1 unit 08/10/17 Unknown Rx [Symbicort 160-4.5 Mcg Inhaler] methylPREDNISolone [Medrol Dose 1 dose PO DAILY #1 pack 08/10/17 Unknown Rx Sherwin] Acetaminophen/Codeine [Tylenol 1 tab PO Q4HR PRN #12 tablet 06/11/18 Unknown Rx /Codeine # 3 tab] Codeine Phosphate/Guaifenesin 10 ml PO Q12HR PRN #180 liquid 06/11/18 Unknown Rx [Guaifen-Codeine 200-20 mg/10Ml] Ipratropium/Albuterol Sulfate 1 ampul IH Q6HR PRN #30 ampul.neb 06/11/18 Unknown Rx [DUONEB *Not for PRN Use*] levoFLOXacin [Levaquin] 750 mg PO QDAY #10 tablet 06/11/18 Unknown Rx Acetaminophen 500 mg PO Q8H PRN #20 tablet 06/12/18 Unknown Rx Cyclobenzaprine [Flexeril] 10 mg PO QHS PRN #10 tablet 06/12/18 Unknown Rx Ondansetron [Zofran Odt] 4 mg PO Q8HR PRN #14 tab.rapdis 07/09/18 Unknown Rx guaiFENesin/CODEINE [Robitussin AC] 10 ml PO TID PRN #100 ml 07/09/18 Unknown Rx levoFLOXacin [Levaquin TAB] 500 mg PO QDAY #7 tablet 07/09/18 Unknown Rx traMADoL [Ultram 50 MG tab] 50 mg PO Q4HR PRN #14 tablet 07/09/18 Unknown Rx Tramadol HCl [Ultram] 50 mg PO Q8HR #10 tablet 09/07/18 Unknown Rx HYDROcodone/APAP 7.5-325 [Satsuma 1 each PO Q6HR PRN #15 tablet 01/06/19 Unknown Rx 7.5/325] Ibuprofen [Motrin] 800 mg PO Q8HR PRN #30 tablet 01/06/19 Unknown Rx predniSONE [Deltasone] 20 mg PO DAILY #15 tablet 01/06/19 Unknown Rx traMADoL [Ultram 50 MG tab] 50 mg PO Q6HR PRN #15 tablet 07/09/20 Unknown Rx Allergies Allergy/AdvReac Type Severity Reaction Status Date / Time aspirin AdvReac Mild ON THINNERS Verified 07/08/20 17:17 ED Review of Systems ROS: Stated complaint: RT SIDE PAIN/SWELLING Other details as noted in HPI Comment: All other systems reviewed and negative Constitutional: denies: fever, malaise Respiratory: denies: cough, shortness of breath Cardiovascular: denies: chest pain Gastrointestinal: abdominal pain. denies: nausea, vomiting, diarrhea, constip ation Genitourinary: denies: urgency, dysuria, frequency, hematuria Musculoskeletal: back pain Neurological: denies: headache ED Past Medical Hx - Past Medical History Previous Medical History?: Yes Hx Hypertension: Yes (FOR 7 YRS) Hx Heart Attack/AMI: No Hx Congestive Heart Failure: No Hx Diabetes: Yes (FOR 20 YRS) Hx Deep Vein Thrombosis: Yes (IVC filter placement 2008) Hx Pulmonary Embolism: Yes (IN 2002) Hx GERD: Yes Hx Liver Disease: No Hx Renal Disease: No Hx Sickle Cell Disease: No Hx Arthritis: Yes Hx Seizures: No Hx Kidney Stones: No Hx Asthma: Yes Hx COPD: No Hx Tuberculosis: No Hx Dementia: No Hx HIV: No Additional medical history: CAD. UNSTABLE ANGINA. sacroidosis. neuropathy - Surgical History Past Surgical History?: Yes Hx Coronary Stent: No Hx Pacemaker: No Hx Internal Defibrillator: No Hx Cholecystectomy: Yes (LAP IN 1997) Additional Surgical History: IVC FILTER. TUBAL LIGATION. TMJ SURGERY - Social History Smoking Status: Never Smoker Substance Use Type: None - Medications Home Medications: Home Medications Medication Instructions Recorded Confirmed Last Taken Type Insulin Aspart (Nf) [NovoLOG 1 units SQ BID PRN 02/13/13 12/30/16 02/17/15 History Flexpen] Insulin Glargine,Hum.rec.anlog 50 unit SQ QHS 02/13/13 12/30/16 02/17/15 History [Lantus Solostar] Pantoprazole [Protonix TAB] 40 mg PO QDAY 02/13/13 12/30/16 02/17/15 History Promethazine HCl [Promethazine TAB] 12.5 mg PO Q8HR PRN 02/13/13 12/30/16 02/17/15 History Valacyclovir HCl [valACYclovir] 1,000 mg PO QDAY 02/13/13 12/30/16 02/17/15 History clonazePAM [KlonoPIN] 1 mg PO Q8HR PRN 02/13/13 12/30/16 02/17/15 History metFORMIN [Glucophage] 1,000 mg PO BID #30 tab 02/13/13 12/30/16 02/17/15 Rx Enoxaparin 80 mg SQ Q12HR 02/17/15 12/30/16 02/17/15 History HYDROcodone/APAP 7.5-325 [Satsuma 1 each PO Q8HR PRN 02/17/15 12/30/16 02/17/15 History 7.5-325 mg TAB] Ipratropium/Albuterol Sulfate 1 ampul IH Q4HR 10/08/15 08/20/17 10/08/15 History [DUONEB *Not for PRN Use*] Pregabalin 75 mg PO BID 02/17/15 12/30/16 02/17/15 History Sitagliptin Phosphate [Januvia] 100 mg PO QDAY 02/17/15 12/30/16 02/17/15 History amLODIPine 5 mg PO DAILY 02/17/15 12/30/16 02/17/15 History diazePAM [Diazepam] 5 mg PO QHS 02/17/15 12/30/16 02/17/15 History raNITIdine HCl [Zantac] 150 mg PO QHS 02/17/15 12/30/16 02/17/15 History Albuterol Mdi (or & Nicu Only) 2 puff IH QID PRN #1 inhalation 12/30/16 Unknown Rx [ProAir HFA Inhaler] HYDROcodone/APAP 5-325 [Satsuma 1 - 2 each PO Q6HR PRN #14 tablet 12/30/16 Unknown Rx 5-325 mg TAB] Azithromycin [Zithromax Z-SHERWIN] 1 dose PO DAILY #1 pack 08/10/17 Unknown Rx Budesonide/Formoterol Fumarate 1 dose IH BID #1 unit 08/10/17 Unknown Rx [Symbicort 160-4.5 Mcg Inhaler] methylPREDNISolone [Medrol Dose 1 dose PO DAILY #1 pack 08/10/17 Unknown Rx Sherwin] Acetaminophen/Codeine [Tylenol 1 tab PO Q4HR PRN #12 tablet 06/11/18 Unknown Rx /Codeine # 3 tab] Codeine Phosphate/Guaifenesin 10 ml PO Q12HR PRN #180 liquid 06/11/18 Unknown Rx [Guaifen-Codeine 200-20 mg/10Ml] Ipratropium/Albuterol Sulfate 1 ampul IH Q6HR PRN #30 ampul.neb 06/11/18 Unknown Rx [DUONEB *Not for PRN Use*] levoFLOXacin [Levaquin] 750 mg PO QDAY #10 tablet 06/11/18 Unknown Rx Acetaminophen 500 mg PO Q8H PRN #20 tablet 06/12/18 Unknown Rx Cyclobenzaprine [Flexeril] 10 mg PO QHS PRN #10 tablet 06/12/18 Unknown Rx Ondansetron [Zofran Odt] 4 mg PO Q8HR PRN #14 tab.rapdis 07/09/18 Unknown Rx guaiFENesin/CODEINE [Robitussin AC] 10 ml PO TID PRN #100 ml 07/09/18 Unknown Rx levoFLOXacin [Levaquin TAB] 500 mg PO QDAY #7 tablet 07/09/18 Unknown Rx traMADoL [Ultram 50 MG tab] 50 mg PO Q4HR PRN #14 tablet 07/09/18 Unknown Rx Tramadol HCl [Ultram] 50 mg PO Q8HR #10 tablet 09/07/18 Unknown Rx HYDROcodone/APAP 7.5-325 [Satsuma 1 each PO Q6HR PRN #15 tablet 01/06/19 Unknown Rx 7.5/325] Ibuprofen [Motrin] 800 mg PO Q8HR PRN #30 tablet 01/06/19 Unknown Rx predniSONE [Deltasone] 20 mg PO DAILY #15 tablet 01/06/19 Unknown Rx traMADoL [Ultram 50 MG tab] 50 mg PO Q6HR PRN #15 tablet 07/09/20 Unknown Rx ED Physical Exam - General Limitations: No Limitations, Other General appearance: alert, in no apparent distress - Head Head exam: Present: atraumatic, normocephalic - Eye Eye exam: Present: normal appearance - ENT ENT exam: Present: mucous membranes moist - Neck Neck exam: Present: normal inspection, full ROM - Respiratory Respiratory exam: Present: normal lung sounds bilaterally. Absent: respiratory distress, wheezes, rales, rhonchi - Cardiovascular Cardiovascular Exam: Present: regular rate, normal rhythm, normal heart sounds. Absent: systolic murmur, diastolic murmur, rubs, gallop - GI/Abdominal GI/Abdominal exam: Present: soft, normal bowel sounds. Absent: distended, tenderness, guarding, rebound - Extremities Exam Extremities exam: Present: normal inspection - Back Exam Back exam: Present: normal inspection, full ROM. Absent: tenderness, CVA tenderness (R), CVA tenderness (L), muscle spasm, paraspinal tenderness, vertebral tenderness, rash noted - Neurological Exam Neurological exam: Present: alert, oriented X3 - Psychiatric Psychiatric exam: Present: normal affect, normal mood - Skin Skin exam: Present: warm, dry, intact, normal color. Absent: rash ED Course Vital Signs 07/08/20 07/08/20 17:17 21:18 Temperature 98 F 98.2 F Pulse Rate 103 H 108 H Respiratory 20 Rate Blood Pressure 195/138 [Left] O2 Sat by Pulse 96 Oximetry ED Medical Decision Making - Lab Data Result diagrams: 07/08/20 18:12 07/08/20 18:12 Laboratory Results - last 24 hr 07/08/20 07/08/20 07/08/20 18:12 18:12 18:12 WBC 13.3 H RBC 4.41 Hgb 14.5 H Hct 41.9 MCV 95 MCH 33 H MCHC 35 H RDW 12.2 L Plt Count 340 Lymph % (Auto) 32.6 J[place] % (Auto) 5.9 Eos % (Auto) 1.8 Baso % (Auto) 0.6 Lymph # (Auto) 4.3 [place] # (Auto) 0.8 Eos # (Auto) 0.2 Baso # (Auto) 0.1 Seg Neutrophils % 59.1 Seg Neutrophils # 7.8 H Sodium 139 Potassium 4.0 Chloride 100.9 Carbon Dioxide 31 H Anion Gap 11 BUN 6 L Creatinine 0.6 Estimated GFR > 60 BUN/Creatinine Ratio 10 Glucose 308 H Calcium 9.8 Total Bilirubin 0.20 AST 36 ALT 58 H Alkaline Phosphatase 205 H Total Creatine Kinase NT-Pro-B Natriuret Pep Total Protein 7.3 Albumin 4.0 Albumin/Globulin Ratio 1.2 Lipase 27 Urine Color Urine Turbidity Urine pH Ur Specific Carmichael Urine Protein Urine Glucose (UA) Urine Ketones Urine Blood Urine Nitrite Urine Bilirubin Urine Urobilinogen Ur Leukocyte Esterase Urine WBC (Auto) Urine RBC (Auto) U Epithel Cells (Auto) 07/08/20 07/08/20 07/08/20 18:12 18:12 18:14 WBC RBC Hgb Hct MCV MCH MCHC RDW Plt Count Lymph % (Auto) J[place] % (Auto) Eos % (Auto) Baso % (Auto) Lymph # (Auto) J[place]uld # (Auto) Eos # (Auto) Baso # (Auto) Seg Neutrophils % Seg Neutrophils # Sodium Potassium Chloride Carbon Dioxide Anion Gap BUN Creatinine Estimated GFR BUN/Creatinine Ratio Glucose Calcium Total Bilirubin AST ALT Alkaline Phosphatase Total Creatine Kinase 93 NT-Pro-B Natriuret Pep 18.08 Total Protein Albumin Albumin/Globulin Ratio Lipase Urine Color Straw Urine Turbidity Clear Urine pH 7.0 Ur Specific Carmichael 1.012 Urine Protein <15 mg/dl Urine Glucose (UA) >=500 Urine Ketones Neg Urine Blood Neg Urine Nitrite Neg Urine Bilirubin Neg Urine Urobilinogen < 2.0 Ur Leukocyte Esterase Neg Urine WBC (Auto) 1.0 Urine RBC (Auto) < 1.0 U Epithel Cells (Auto) < 1.0 - Radiology Data Radiology results: report reviewed CT ABDOMEN AND PELVIS WITH CONTRAST HISTORY: Abdominal pain and bloating COMPARISON: Prior CT on 12/31/2019 TECHNIQUE: Routine abdominal and pelvic CT exam performed following intravenous contrast administration.. All CT scans at this location are performed using CT dose reduction for ALARA by means of automated exposure control. FINDINGS: CT ABDOMEN: Lung Bases: Stable mild chronic interstitial lung disease. Liver: No significant abnormality. Biliary: Gallbladder is surgically absent. Spleen: No significant abnormality. Unenlarged. Pancreas: No significant abnormality. Adrenals: No significant abnormality. Kidneys: No significant abnormality. Lymphatics: No lymphadenopathy. Vasculature: Unchanged position of infrarenal IVC filter Bowel/Peritoneum: No significant abnormality. No free air. No free fluid. Normal appendix. CT PELVIC: : No significant abnormality. Lymphatics: No lymphadenopathy. Osseous Structures: No aggressive appearing osseous lesions. Additional Findings: None IMPRESSION: 1. No acute findings. 2. IVC Filter Recommendation: IVC filters should be removed if possible when they are no longer clinically necessary. (1) Refer to the established IVC filter management plan; (2) If there is no established plan for the patient's IVC filter, consider referral to interventional/vascular clinician on a nonemergent basis for evaluation. - Medical Decision Making Right flank pain, lower abdominal pain: Differential diagnosis includes kidney stone/renal colic, appendicitis, retroperitoneal abscess, perinephric abscess, Work-up notable for leukocytosis elevated white count 13,000, normal kidney function, hyperglycemia 308, elevated ALT, elevated alk phos normal bilirubin, urinalysis without hematuria or evidence of infection. Urinalysis positive for glucosuria and proteinuria After extensive work-up in the emergency department including labs and CT scan, no evidence of acute emergent condition. No evidence of acute inflammatory obstructive process. No infection to account for leukocytosis. Patient was given extensive instructions and education. She was given the results of all tests obtained in emergency department. I strongly encouraged her to follow-up with Dr. Tiago Hansen. She understands the significance of proteinuria. She understands that her hemoglobin A1c must be improved. Critical care attestation.: If time is entered above; I have spent that time in minutes in the direct care of this critically ill patient, excluding procedure time. ED Disposition Clinical Impression: Abdominal pain, Proteinuria Disposition: DC-01 TO HOME OR SELFCARE Is pt being admited?: No Does the pt Need Aspirin: No Condition: Stable Instructions: Abdominal Pain (ED), Abdominal Pain, Adult, [id number] Prescriptions: traMADoL [Ultram 50 MG tab] 50 mg PO Q6HR PRN #15 tablet PRN Reason: Pain
[2020-07-08 21:19] VITALS: BP 195/138
--- NOTE | 2020-07-09 00:16 | Cat Scan Report ---
CT ABDOMEN AND PELVIS WITH CONTRAST HISTORY: Abdominal pain and bloating COMPARISON: Prior CT on 12/31/2019 TECHNIQUE: Routine abdominal and pelvic CT exam performed following intravenous contrast administrat ion.. All CT scans at this location are performed using CT dose reduction for ALARA by means of autom ated exposure control. FINDINGS: CT ABDOMEN: Lung Bases: Stable mild chronic interstitial lung disease. Liver: No significant abnormality. Biliary: Gallbladder is surgically absent. Spleen: No significant abnormality. Unenlarged. Pancreas: No significant abnormality. Adrenals: No significant abnormality. Kidneys: No significant abnormality. Lymphatics: No lymphadenopathy. Vasculature: Unchanged position of infrarenal IVC filter Bowel/Peritoneum: No significant abnormality. No free air. No free fluid. Normal appendix. CT PELVIC: : No significant abnormality. Lymphatics: No lymphadenopathy. Osseous Structures: No aggressive appearing osseous lesions. Additional Findings: None IMPRESSION: 1. No acute findings. 2. IVC Filter Recommendation: IVC filters should be removed if possible when they are no longer clini gricel necessary. (1) Refer to the established IVC filter management plan; (2) If there is no establis hed plan for the patient's IVC filter, consider referral to interventional/vascular clinician on a no nemergent basis for evaluation. Signer Name: Chandrakant Howard MD Signed: 07/09/2020 12:11 AM Workstation Name: [id number]
== END 2020-07-09 01:17 | disposition home or self-care (01) ==
LOC: ED 16:54
DX: R80.9 Proteinuria, unspecified (principal); R10.31 Right lower quadrant pain; R10.32 Left lower quadrant pain; I10 Essential (primary) hypertension; E11.9 Type 2 diabetes mellitus without complications; K21.9 Gastro-esophageal reflux disease without esophagitis; M19.91 Primary osteoarthritis, unspecified site; J45.909 Unspecified asthma, uncomplicated; Z86.718 Personal history of other venous thrombosis and embolism; Z86.711 Personal history of pulmonary embolism; Z98.51 Tubal ligation status; Z79.899 Other long term (current) drug therapy; Z98.890 Other specified postprocedural states; Z79.1 Long term (current) use of non-steroidal anti-inflammatories (NSAID); Z79.2 Long term (current) use of antibiotics; Z79.4 Long term (current) use of insulin; Z88.8 Allergy status to other drugs, medicaments and biological substances
CPT/HCPCS: 36415; 74177; 80053; 81001; 82550; 83690; 83880; 85025; 96374; 99284; J2270; Q9967

== ENCOUNTER 2020-11-23 16:46 | Emergency (ER) | payer MEDICARE ==
[2020-11-23 17:42] VITALS: BP 119/70
--- NOTE | 2020-11-23 19:58 | XRay Report ---
Right knee 3 views INDICATION: Right knee pain following injury IMPRESSION: No fracture or subluxation. Signer Name: Gabe Todd MD Signed: 11/23/2020 7:54 PM Workstation Name: [id number]
--- NOTE | 2020-11-23 19:58 | XRay Report ---
Lumbar spine 3 views INDICATION: Low back pain following fall IMPRESSION: No fracture or subluxation is identified. Signer Name: Gabe Todd MD Signed: 11/23/2020 7:53 PM Workstation Name: [id number]
--- NOTE | 2020-11-23 20:10 | Emergency Department Report ---
ED Fall HPI - General Chief Complaint: Fall Stated Complaint: FALL Time Seen by Provider: 11/23/20 19:12 Source: patient Mode of arrival: Ambulatory - History of Present Illness Initial Comments: Patient is a 55-year-old female presents emergency room with complaints of a slip and fall at ground level that occurred earlier today. She reports that she slipped and fell over some water. she states she landed directly on her right knee. She is complaining of right knee pain and lower back pain. she states her right knee pain radiates pain to her right lower back. She denies any loss of consciousness, hitting her head, vomiting, vision changes, numbness, weakness, bowel or bladder incontinence, any other injury. She reports that she cannot take aspirin. - Related Data Home Medications Medication Instructions Recorded Confirmed Last Taken Insulin Aspart (Nf) [NovoLOG 1 units SQ BID PRN 02/13/13 12/30/16 02/17/15 Flexpen] Insulin Glargine,Hum.rec.anlog 50 unit SQ QHS 02/13/13 12/30/16 02/17/15 [Lantus Solostar] Pantoprazole [Protonix TAB] 40 mg PO QDAY 02/13/13 12/30/16 02/17/15 Promethazine HCl [Promethazine TAB] 12.5 mg PO Q8HR PRN 02/13/13 12/30/16 02/17/15 Valacyclovir HCl [valACYclovir] 1,000 mg PO QDAY 02/13/13 12/30/16 02/17/15 clonazePAM [KlonoPIN] 1 mg PO Q8HR PRN 02/13/13 12/30/16 02/17/15 Enoxaparin 80 mg SQ Q12HR 02/17/15 12/30/16 02/17/15 HYDROcodone/APAP 7.5-325 [[place] 1 each PO Q8HR PRN 02/17/15 12/30/16 02/17/15 7.5-325 mg TAB] Ipratropium/Albuterol Sulfate 1 ampul IH Q4HR 02/17/15 12/30/16 02/17/15 [DUONEB *Not for PRN Use*] Pregabalin 75 mg PO BID 02/17/15 12/30/16 02/17/15 Sitagliptin Phosphate [Januvia] 100 mg PO QDAY 02/17/15 12/30/16 02/17/15 amLODIPine 5 mg PO DAILY 02/17/15 12/30/16 02/17/15 diazePAM [Diazepam] 5 mg PO QHS 02/17/15 12/30/16 02/17/15 raNITIdine HCl [Zantac] 150 mg PO QHS 02/17/15 12/30/16 02/17/15 Previous Rx's Medication Instructions Recorded Last Taken Type metFORMIN [Glucophage] 1,000 mg PO BID #30 tab 02/13/13 02/17/15 Rx Albuterol Mdi (or & Nicu Only) 2 puff IH QID PRN #1 inhalation 12/30/16 Unknown Rx [ProAir HFA Inhaler] HYDROcodone/APAP 5-325 [[place] 1 - 2 each PO Q6HR PRN #14 tablet 12/30/16 Unknown Rx 5-325 mg TAB] Azithromycin [Zithromax Z-ARIK] 1 dose PO DAILY #1 pack 08/10/17 Unknown Rx Budesonide/Formoterol Fumarate 1 dose IH BID #1 unit 08/10/17 Unknown Rx [Symbicort 160-4.5 Mcg Inhaler] methylPREDNISolone [Medrol Dose 1 dose PO DAILY #1 pack 08/10/17 Unknown Rx Arik] Acetaminophen/Codeine [Tylenol 1 tab PO Q4HR PRN #12 tablet 06/11/18 Unknown Rx /Codeine # 3 tab] Codeine Phosphate/Guaifenesin 10 ml PO Q12HR PRN #180 liquid 06/11/18 Unknown Rx [Guaifen-Codeine 200-20 mg/10Ml] Ipratropium/Albuterol Sulfate 1 ampul IH Q6HR PRN #30 ampul.neb 06/11/18 Unknown Rx [DUONEB *Not for PRN Use*] levoFLOXacin [Levaquin] 750 mg PO QDAY #10 tablet 06/11/18 Unknown Rx Acetaminophen 500 mg PO Q8H PRN #20 tablet 06/12/18 Unknown Rx Cyclobenzaprine [Flexeril] 10 mg PO QHS PRN #10 tablet 06/12/18 Unknown Rx Ondansetron [Zofran Odt] 4 mg PO Q8HR PRN #14 tab.rapdis 07/09/18 Unknown Rx guaiFENesin/CODEINE [Robitussin AC] 10 ml PO TID PRN #100 ml 07/09/18 Unknown Rx levoFLOXacin [Levaquin TAB] 500 mg PO QDAY #7 tablet 07/09/18 Unknown Rx traMADoL [Ultram 50 MG tab] 50 mg PO Q4HR PRN #14 tablet 07/09/18 Unknown Rx Tramadol HCl [Ultram] 50 mg PO Q8HR #10 tablet 09/07/18 Unknown Rx HYDROcodone/APAP 7.5-325 [[place] 1 each PO Q6HR PRN #15 tablet 01/06/19 Unknown Rx 7.5/325] Ibuprofen [Motrin] 800 mg PO Q8HR PRN #30 tablet 01/06/19 Unknown Rx predniSONE [Deltasone] 20 mg PO DAILY #15 tablet 01/06/19 Unknown Rx traMADoL [Ultram 50 MG tab] 50 mg PO Q6HR PRN #15 tablet 07/09/20 Unknown Rx Acetaminophen [Tylenol] 650 mg PO Q8HR PRN #20 capsule 11/23/20 Unknown Rx methOCARBAMOL [Robaxin TAB] 500 mg PO BID PRN #14 tab 11/23/20 Unknown Rx Allergies Allergy/AdvReac Type Severity Reaction Status Date / Time aspirin AdvReac Mild ON THINNERS Verified 07/08/20 17:17 ED Review of Systems ROS: Stated complaint: FALL Other details as noted in HPI Comment: All other systems reviewed and negative ED Past Medical Hx - Past Medical History Previous Medical History?: Yes Hx Hypertension: Yes (FOR 7 YRS) Hx Heart Attack/AMI: No Hx Congestive Heart Failure: No Hx Diabetes: Yes (FOR 20 YRS) Hx Deep Vein Thrombosis: Yes (IVC filter placement 2008) Hx Pulmonary Embolism: Yes (IN 2002) Hx GERD: Yes Hx Liver Disease: No Hx Renal Disease: No Hx Sickle Cell Disease: No Hx Arthritis: Yes Hx Seizures: No Hx Kidney Stones: No Hx Asthma: Yes Hx COPD: No Hx Tuberculosis: No Hx Dementia: No Hx HIV: No Additional medical history: CAD. UNSTABLE ANGINA. sacroidosis. neuropathy - Surgical History Past Surgical History?: Yes Hx Coronary Stent: No Hx Pacemaker: No Hx Internal Defibrillator: No Hx Cholecystectomy: Yes (LAP IN 1997) Additional Surgical History: IVC FILTER. TUBAL LIGATION. TMJ SURGERY - Social History Smoking Status: Never Smoker Substance Use Type: None - Medications Home Medications: Home Medications Medication Instructions Recorded Confirmed Last Taken Type Insulin Aspart (Nf) [NovoLOG 1 units SQ BID PRN 02/13/13 12/30/16 02/17/15 History Flexpen] Insulin Glargine,Hum.rec.anlog 50 unit SQ QHS 02/13/13 12/30/16 02/17/15 History [Lantus Solostar] Pantoprazole [Protonix TAB] 40 mg PO QDAY 02/13/13 12/30/16 02/17/15 History Promethazine HCl [Promethazine TAB] 12.5 mg PO Q8HR PRN 02/13/13 12/30/16 02/17/15 History Valacyclovir HCl [valACYclovir] 1,000 mg PO QDAY 02/13/13 12/30/16 02/17/15 History clonazePAM [KlonoPIN] 1 mg PO Q8HR PRN 02/13/13 12/30/16 02/17/15 History metFORMIN [Glucophage] 1,000 mg PO BID #30 tab 02/13/13 12/30/16 02/17/15 Rx Enoxaparin 80 mg SQ Q12HR 02/17/15 12/30/16 02/17/15 History HYDROcodone/APAP 7.5-325 [[place] 1 each PO Q8HR PRN 02/17/15 12/30/16 02/17/15 History 7.5-325 mg TAB] Ipratropium/Albuterol Sulfate 1 ampul IH Q4HR 02/17/15 12/30/16 02/17/15 History [DUONEB *Not for PRN Use*] Pregabalin 75 mg PO BID 02/17/15 12/30/16 02/17/15 History Sitagliptin Phosphate [Januvia] 100 mg PO QDAY 02/17/15 12/30/16 02/17/15 History amLODIPine 5 mg PO DAILY 02/17/15 12/30/16 02/17/15 History diazePAM [Diazepam] 5 mg PO QHS 02/17/15 12/30/16 02/17/15 History raNITIdine HCl [Zantac] 150 mg PO QHS 02/17/15 12/30/16 02/17/15 History Albuterol Mdi (or & Nicu Only) 2 puff IH QID PRN #1 inhalation 12/30/16 Unknown Rx [ProAir HFA Inhaler] HYDROcodone/APAP 5-325 [[place] 1 - 2 each PO Q6HR PRN #14 tablet 12/30/16 Unknown Rx 5-325 mg TAB] Azithromycin [Zithromax Z-ARIK] 1 dose PO DAILY #1 pack 08/10/17 Unknown Rx Budesonide/Formoterol Fumarate 1 dose IH BID #1 unit 08/10/17 Unknown Rx [Symbicort 160-4.5 Mcg Inhaler] methylPREDNISolone [Medrol Dose 1 dose PO DAILY #1 pack 08/10/17 Unknown Rx Arik] Acetaminophen/Codeine [Tylenol 1 tab PO Q4HR PRN #12 tablet 06/11/18 Unknown Rx /Codeine # 3 tab] Codeine Phosphate/Guaifenesin 10 ml PO Q12HR PRN #180 liquid 06/11/18 Unknown Rx [Guaifen-Codeine 200-20 mg/10Ml] Ipratropium/Albuterol Sulfate 1 ampul IH Q6HR PRN #30 ampul.neb 06/11/18 Unknown Rx [DUONEB *Not for PRN Use*] levoFLOXacin [Levaquin] 750 mg PO QDAY #10 tablet 06/11/18 Unknown Rx Acetaminophen 500 mg PO Q8H PRN #20 tablet 06/12/18 Unknown Rx Cyclobenzaprine [Flexeril] 10 mg PO QHS PRN #10 tablet 06/12/18 Unknown Rx Ondansetron [Zofran Odt] 4 mg PO Q8HR PRN #14 tab.rapdis 07/09/18 Unknown Rx guaiFENesin/CODEINE [Robitussin AC] 10 ml PO TID PRN #100 ml 07/09/18 Unknown Rx levoFLOXacin [Levaquin TAB] 500 mg PO QDAY #7 tablet 07/09/18 Unknown Rx traMADoL [Ultram 50 MG tab] 50 mg PO Q4HR PRN #14 tablet 07/09/18 Unknown Rx Tramadol HCl [Ultram] 50 mg PO Q8HR #10 tablet 09/07/18 Unknown Rx HYDROcodone/APAP 7.5-325 [[place] 1 each PO Q6HR PRN #15 tablet 01/06/19 Unknown Rx 7.5/325] Ibuprofen [Motrin] 800 mg PO Q8HR PRN #30 tablet 01/06/19 Unknown Rx predniSONE [Deltasone] 20 mg PO DAILY #15 tablet 01/06/19 Unknown Rx traMADoL [Ultram 50 MG tab] 50 mg PO Q6HR PRN #15 tablet 07/09/20 Unknown Rx Acetaminophen [Tylenol] 650 mg PO Q8HR PRN #20 capsule 11/23/20 Unknown Rx methOCARBAMOL [Robaxin TAB] 500 mg PO BID PRN #14 tab 11/23/20 Unknown Rx ED Physical Exam - General Limitations: No Limitations General appearance: alert, in no apparent distress - Head Head exam: Present: atraumatic, normocephalic - Eye Eye exam: Present: normal appearance - ENT ENT exam: Present: mucous membranes moist - Neck Neck exam: Present: normal inspection, full ROM. Absent: tenderness, meningismus - Respiratory Respiratory exam: Present: normal lung sounds bilaterally. Absent: respiratory distress, wheezes, rales, rhonchi, stridor, chest wall tenderness, accessory muscle use, decreased breath sounds, prolonged expiratory - Cardiovascular Cardiovascular Exam: Present: regular rate, normal rhythm, normal heart sounds. Absent: systolic murmur, diastolic murmur, rubs, gallop - Extremities Exam Extremities exam: Present: other (mild ttp to the right anterior knee, no edema, no deformity, no crepitus, FROM of the RLE, neurovascularly intact) - Back Exam Back exam: Present: normal inspection, full ROM, paraspinal tenderness (right sided lumbar paraspinal muscular ttp, no midline C-spine, T-spine or L-spine ttp, no step offs, no deformities ). Absent: vertebral tenderness - Neurological Exam Neurological exam: Present: alert, oriented X3, CN II-XII intact, normal gait. Absent: motor sensory deficit - Psychiatric Psychiatric exam: Present: normal affect, normal mood - Skin Skin exam: Present: warm, dry, intact ED Course Vital Signs 11/23/20 17:41 Temperature 98.4 F Pulse Rate 87 Respiratory 18 Rate Blood Pressure 119/70 O2 Sat by Pulse 96 Oximetry ED Medical Decision Making - Radiology Data Radiology results: report reviewed Ordering Physician: MARAH KATHLEEN Date of Service: 11/23/20 Procedure(s): XR knee 3V RT Accession Number(s): [id number] cc: MARAH KATHLEEN Fluoro Time In Minutes: Right knee 3 views INDICATION: Right knee pain following injury IMPRESSION: No fracture or subluxation. Signer Name: Gabe Todd MD Signed: 11/23/2020 7:54 PM Workstation Name: [id number] Transcribed By: Dictated By: Gabe Todd MD Electronically Authenticated By: Gabe Todd MD Signed Date/Time: 11/23/201953 DD/ 52 TD/TT: Print Ordering Physician: MARAH KATHLEEN Date of Service: 11/23/20 Procedure(s): XR spine lumbosacral 2-3V Accession Number(s): [id number] cc: MARAH KATHLEEN Fluoro Time In Minutes: Lumbar spine 3 views INDICATION: Low back pain following fall IMPRESSION: No fracture or subluxation is identified. Signer Name: Gabe Todd MD Signed: 11/23/2020 7:53 PM Workstation Name: [id number] Transcribed By: Dictated By: Gabe Todd MD Electronically Authenticated By: Gabe Todd MD Signed Date/Time: 11/23/201952 DD/ 52 TD/TT: Print - Medical Decision Making Patient is a 55-year-old female presents emergency room with complaints of a slip and fall at ground level that occurred earlier today. She reports that she slipped and fell over some water. she states she landed directly on her right knee. She is complaining of right knee pain and lower back pain. she states her right knee pain radiates pain to her right lower back. She denies any loss of consciousness, hitting her head, vomiting, vision changes, numbness, weakness, bowel or bladder incontinence, any other injury. She reports that she cannot take aspirin. vitals are normal. on exam: mild ttp to the right anterior knee, no edema, no deformity, no crepitus, FROM of the RLE, neurovascularly intact, right sided lumbar paraspinal muscular ttp, no midline C-spine, T-spine or L- spine ttp, no step offs, no deformities, no focal neuro deficits, ambulatory without difficulty. X-ray right knee: IMPRESSION: No fracture or subluxation. X-ray lumbar spine: IMPRESSION: No fracture or subluxation is identified. Patient given prescription for medications. Advised patient Please take medication as prescribed as needed. May use ice pack, heating pad, rest, epsom salt bath. do not drive or operate heavy machinery while taking muscle relaxer robaxin. Follow-up with your primary care doctor. Return to emergency room for any new or worsening symptoms. Critical care attestation.: If time is entered above; I have spent that time in minutes in the direct care of this critically ill patient, excluding procedure time. ED Disposition Clinical Impression: Fall Qualifiers: Encounter type: initial encounter Qualified Code(s): W19.XXXA - Unspecified fall, initial encounter Right knee pain Qualifiers: Chronicity: acute Qualified Code(s): M25.561 - Pain in right knee Low back pain Qualifiers: Chronicity: acute Back pain laterality: right Sciatica presence: without sciatica Qualified Code(s): M54.5 - Low back pain Disposition: - TO HOME OR SELFCARE Is pt being admited?: No Does the pt Need Aspirin: No Condition: Stable Instructions: Musculoskeletal Pain Additional Instructions: Please take medication as prescribed as needed. May use ice pack, heating pad, rest, epsom salt bath. do not drive or operate heavy machinery while taking muscle relaxer robaxin. Follow-up with your primary care doctor. Return to emergency room for any new or worsening symptoms. Your x-rays are within normal limits Prescriptions: methOCARBAMOL [Robaxin TAB] 500 mg PO BID PRN #14 tab PRN Reason: muscle spasm/pain Acetaminophen [Tylenol] 650 mg PO Q8HR PRN #20 capsule PRN Reason: pain Referrals: AYANNA RODRIGEZ MD [Staff Physician] - 3-5 Days Time of Disposition: 20:08 Print Language: CHINESE
== END 2020-11-23 20:15 | disposition home or self-care (01) ==
LOC: ED 16:46
DX: M25.561 Pain in right knee (principal); M54.5 Low back pain; I10 Essential (primary) hypertension; E11.9 Type 2 diabetes mellitus without complications; K21.9 Gastro-esophageal reflux disease without esophagitis; M19.91 Primary osteoarthritis, unspecified site; J45.909 Unspecified asthma, uncomplicated; Z90.49 Acquired absence of other specified parts of digestive tract; Z98.890 Other specified postprocedural states; Z79.1 Long term (current) use of non-steroidal anti-inflammatories (NSAID); Z79.2 Long term (current) use of antibiotics; Z79.4 Long term (current) use of insulin; Z79.899 Other long term (current) drug therapy; Z88.6 Allergy status to analgesic agent; W01.0XXA Fall on same level from slipping, tripping and stumbling without subsequent striking against object, initial encounter; Y93.89 Activity, other specified; Y92.89 Other specified places as the place of occurrence of the external cause; Y99.8 Other external cause status
CPT/HCPCS: 72100

== ENCOUNTER 2021-02-23 09:48 | Outpatient (CLI) | payer MEDICARE ==
--- NOTE | 2021-02-23 12:31 | Magnetic Resonance Report ---
MR RIGHT KNEE HISTORY: Right knee pain COMPARISON: None. TECHNIQUE: Routine non-contrast MRI of the right knee obtained. CONTRAST: None. FINDINGS: ACL: No significant abnormality. PCL: No significant abnormality. MCL: There is disruption of the superior, anterior fibers of the MCL consistent with partial tear. No complete disruption or meniscal capsular separation. LCL Complex: No significant abnormality. Popliteus tendon: No significant abnormality. Medial Meniscus: No significant abnormality. Lateral Meniscus: No significant abnormality. Patellofemoral Extensor Mechanism and Hoffa's fat: No significant abnormality. Joint Effusion and Murdock's Cyst: No significant effusion or popliteal fossa cyst. Cartilage: No acute abnormality. Bone Marrow: No significant abnormality. Muscles: No significant abnormality. Subcutaneous soft tissues: Multiseptated ganglion cyst is noted along the posterolateral surface of t he distal femur measuring up to 2.5 x 0.8 x 1.3 cm. Additional Findings: Trace joint effusion. IMPRESSION: Partial tear of the MCL as described. Trace joint effusion. Ganglion cyst. Signer Name: Arslan Snow Jr, MD Signed: 02/23/2021 12:27 PM Workstation Name: [id number]
--- NOTE | 2021-02-23 12:38 | Magnetic Resonance Report ---
MRI LUMBAR SPINE WITHOUT CONTRAST INDICATION / CLINICAL INFORMATION: BACK PAIN. TECHNIQUE: Multisequence, multiplanar images of the lumbar spine were obtained. COMPARISON: 10/08/2018. FINDINGS: ALIGNMENT: Normal lumbar lordosis without significant scoliosis. VERTEBRAE:Normal marrow signal and vertebral body height for age. 2.2 cm bone hemangioma is again not ed in L4. VISUALIZED SPINAL CORD: No significant abnormality. The conus terminates at the L1-2 level. [id number] ANALYSIS: L1-2: No significant abnormality. L2-3: No significant abnormality. L3-4: No significant abnormality with the disc. Minimal facet arthropathy and hypertrophy ligamentum flavum. L4-5: Mild circumferential bulging disc is again seen with mild facet arthropathy and hypertrophy lig amentum flavum. Spinal canal diameter is borderline. There is mild bilateral neural foraminal narrowi ng estimated at 25%. The left side is slightly more affected. No herniation. L5-S1: No significant abnormality with the disc. Moderate facet arthropathy and hypertrophy ligamentu m flavum. No central canal or neural foraminal narrowing. PARASPINAL SOFT TISSUES: No significant abnormality. ADDITIONAL FINDINGS: None. IMPRESSION: Mild multilevel lumbar spondylosis as described. L4-5 appears to be the most affected level. No sig nificant change is appreciated since 10/08/2018. Signer Name: Arslan Snow Jr, MD Signed: 02/23/2021 12:34 PM Workstation Name: [id number]
== END 2021-02-23 09:49 | disposition home or self-care (01) ==
LOC: MRI 09:48
PROVIDERS: ATTEND Orthopaedic Surgery
DX: S83.411A Sprain of medial collateral ligament of right knee, initial encounter (principal); A18.0 Tuberculosis of bones and joints; M54.6 Pain in thoracic spine; X58.XXXA Exposure to other specified factors, initial encounter; Y93.89 Activity, other specified; Y92.89 Other specified places as the place of occurrence of the external cause; Y99.8 Other external cause status
CPT/HCPCS: 72148; 73721

== ENCOUNTER 2021-03-24 11:37 | Outpatient (CLI) | payer MEDICARE ==
[2021-03-24 12:25] LABS: Hematocrit 39.2 % (30.3-42.9); Hemoglobin 13.3 gm/dl (10.1-14.3); Mean Corpuscular HGB Conc 34 % (30-34); Mean Corpuscular Volume 92 fl (79-97); Platelet Count 329 K/mm3 (140-440); Red Blood Count 4.27 M/mm3 (3.65-5.03); Red Cell Distribution Width 12.4 % (13.2-15.2)
[2021-03-24 12:48] LABS: Alanine Aminotransferase 37 units/L (7-56); Albumin 3.9 g/dL (3.9-5); Blood Urea Nitrogen 9 mg/dL (7-17); Calcium 9.4 mg/dL (8.4-10.2); Hemolysis Index 4
[2021-03-24 12:49] LABS: BUN/Creatinine Ratio 15
--- NOTE | 2021-03-24 15:07 | XRay Report ---
CHEST 2 VIEWS INDICATION: HISTORY OF SARCOIDOSIS. COMPARISON: 07/09/2018 FINDINGS: Support devices: None. Heart: Within normal limits. No obvious mediastinal adenopathy. Lungs/pleura: Subtle infiltration seen in the lower lung zones has resolved since the previous exam. The lungs are generally clear. There is certainly no advanced findings of sarcoidosis. No pleural ef fusion or pneumothorax. Additional findings: None. IMPRESSION: Unremarkable chest films. Signer Name: Arslan Snow Jr, MD Signed: 03/24/2021 3:02 PM Workstation Name: [id number] - [id number]
== END 2021-03-24 11:38 | disposition home or self-care (01) ==
LOC: LAB 11:37
PROVIDERS: ATTEND Internal Medicine
DX: Z00.00 Encounter for general adult medical examination without abnormal findings (principal); E55.9 Vitamin D deficiency, unspecified; D86.9 Sarcoidosis, unspecified
CPT/HCPCS: 36415; 71046; 80053; 82164; 84436; 84443; 85027

== ENCOUNTER 2021-08-22 06:41 | Day surgery (SDC) | payer MEDICARE ==
[2021-08-22] MEDS ORDERED: SODIUM CHLORIDE 0.9% 1000 ML 1,000 ML IV SCH (07:00)
--- NOTE | 2021-08-22 08:26 | Anesthesia Day of Surgery ---
Anesthesia Day of Surgery - Day of Surgery Patient Examined: Yes Patient H&P Reviewed: Yes Patient is NPO: Yes Cardiac Clearance: Yes
--- NOTE | 2021-08-22 08:30 | Anesthesia Consultation ---
Anesthesia Consult and Med Hx Date of service: 08/22/21 - Airway Anesthetic Teeth Evaluation: Edentulous ROM Head & Neck: Adequate Mental/Hyoid Distance: Adequate Mallampati Class: Class II Intubation Access Assessment: Good - Pre-Operative Health Status ASA Pre-Surgery Classification: ASA3 Proposed Anesthetic Plan: MAC - Pulmonary Hx Smoking: Yes (CIGARETTES 1/2 PPD X 28 YRS) Hx Asthma: Yes Hx Respiratory Symptoms: Yes (Sarcoidosis; hx of bronchitis) SOB: Yes (PE in 2002) COPD: No (PE 2002) Hx Pneumonia: No Hx Sleep Apnea: No - Cardiovascular System Hx Hypertension: Yes (FOR 7 YRS) Hx Coronary Artery Disease: Yes Hx Heart Attack/AMI: No Hx Angina: Yes Hx Percutaneous Transluminal Coronary Angioplasty (PTCA): No Hx Pacemaker: No Hx Internal Defibrillator: No Hx Valvular Heart Disease: No Hx Heart Murmur: No Hx Peripheral Vascular Disease: Yes (DVT; IVC filter 2008) - Central Nervous System Hx Seizures: No CVA: No Hx Psychiatric Problems: No - Gastrointestinal Hx Ulcer: No Hx Gastroesophageal Reflux Disease: Yes - Endocrine Hx Renal Disease: No Hx End Stage Renal Disease: No Hx Cirrhosis: No Hx Liver Disease: No Hx Non-Insulin Dependent Diabetes: Yes Hx Hypothyroidism: No Hx Hyperthyroidism: No - Hematic Hx Anemia: No Hx Sickle Cell Disease: No - Other Systems Hx Cancer: No Hx Obesity: Yes - Additional Comments Anesthesia Medical History Comments: +Cardiac clearance
[2021-08-22] MEDS ORDERED: propofoL 200 MG/20 ML VIAL IV ONE ×2 (09:14→09:45)
--- NOTE | 2021-08-22 10:00 | Short Stay Summary ---
Short Stay Documentation Date of service: 08/22/21 Narrative H&P: The patient presents for surveillance colonoscopy for history of colon polyps. Last study 5 years ago. - History Past Medical History: arrhythmia, diabetes, hypertension Past Surgical History: cholecystectomy, tonsillectomy, Other (Tubal ligation) Social history: no significant social history - Allergies and Medications Current Medications: Allergies aspirin Adverse Reaction (Mild, Verified 07/08/20 17:17) ON THINNERS PATIENT STATES, HER MD ASKED HER NEVER TO TAKE ASPIRIN. Home Medications Medication Instructions Recorded Confirmed Last Taken Type Insulin Aspart (Nf) [NovoLOG 1 units SQ BID PRN 02/13/13 12/30/16 02/17/15 History Flexpen] Insulin Glargine,Hum.rec.anlog 50 unit SQ QHS 02/13/13 12/30/16 02/17/15 History [Lantus Solostar] Pantoprazole [Protonix TAB] 40 mg PO QDAY 02/13/13 12/30/16 02/17/15 History Promethazine HCl [Promethazine TAB] 12.5 mg PO Q8HR PRN 02/13/13 12/30/16 02/17/15 History Valacyclovir HCl [valACYclovir] 1,000 mg PO QDAY 02/13/13 12/30/16 02/17/15 History clonazePAM [KlonoPIN] 1 mg PO Q8HR PRN 02/13/13 12/30/16 02/17/15 History metFORMIN [Glucophage] 1,000 mg PO BID #30 tab 02/13/13 12/30/16 02/17/15 Rx Enoxaparin 80 mg SQ Q12HR 02/17/15 12/30/16 02/17/15 History HYDROcodone/APAP 7.5-325 [[place] 1 each PO Q8HR PRN 02/17/15 12/30/16 02/17/15 History 7.5-325 mg TAB] Ipratropium/Albuterol Sulfate 1 ampul IH Q4HR 02/17/15 12/30/16 02/17/15 History [DUONEB *Not for PRN Use*] Pregabalin 75 mg PO BID 02/17/15 12/30/16 02/17/15 History Sitagliptin Phosphate [Januvia] 100 mg PO QDAY 02/17/15 12/30/16 02/17/15 History amLODIPine 5 mg PO DAILY 02/17/15 12/30/16 02/17/15 History diazePAM [Diazepam] 5 mg PO QHS 02/17/15 12/30/16 02/17/15 History raNITIdine HCl [Zantac] 150 mg PO QHS 02/17/15 12/30/16 02/17/15 History Albuterol Mdi (or & Nicu Only) 2 puff IH QID PRN #1 inhalation 12/30/16 Unknown Rx [ProAir HFA Inhaler] HYDROcodone/APAP 5-325 [[place] 1 - 2 each PO Q6HR PRN #14 tablet 12/30/16 Unknown Rx 5-325 mg TAB] Azithromycin [Zithromax Z-SHERWIN] 1 dose PO DAILY #1 pack 08/10/17 Unknown Rx Budesonide/Formoterol Fumarate 1 dose IH BID #1 unit 08/10/17 Unknown Rx [Symbicort 160-4.5 Mcg Inhaler] methylPREDNISolone [Medrol Dose 1 dose PO DAILY #1 pack 08/10/17 Unknown Rx Sherwin] Acetaminophen/Codeine [Tylenol 1 tab PO Q4HR PRN #12 tablet 06/11/18 Unknown Rx /Codeine # 3 tab] Codeine Phosphate/Guaifenesin 10 ml PO Q12HR PRN #180 liquid 06/11/18 Unknown Rx [Guaifen-Codeine 200-20 mg/10Ml] Ipratropium/Albuterol Sulfate 1 ampul IH Q6HR PRN #30 ampul.neb 06/11/18 Unknown Rx [DUONEB *Not for PRN Use*] levoFLOXacin [Levaquin] 750 mg PO QDAY #10 tablet 06/11/18 Unknown Rx Acetaminophen 500 mg PO Q8H PRN #20 tablet 06/12/18 Unknown Rx Cyclobenzaprine [Flexeril] 10 mg PO QHS PRN #10 tablet 06/12/18 Unknown Rx Ondansetron [Zofran Odt] 4 mg PO Q8HR PRN #14 tab.rapdis 07/09/18 Unknown Rx guaiFENesin/CODEINE [Robitussin AC] 10 ml PO TID PRN #100 ml 07/09/18 Unknown Rx levoFLOXacin [Levaquin TAB] 500 mg PO QDAY #7 tablet 07/09/18 Unknown Rx traMADoL [Ultram 50 MG tab] 50 mg PO Q4HR PRN #14 tablet 07/09/18 Unknown Rx Tramadol HCl [Ultram] 50 mg PO Q8HR #10 tablet 09/07/18 Unknown Rx HYDROcodone/APAP 7.5-325 [[place] 1 each PO Q6HR PRN #15 tablet 01/06/19 Unknown Rx 7.5/325] Ibuprofen [Motrin] 800 mg PO Q8HR PRN #30 tablet 01/06/19 Unknown Rx predniSONE [Deltasone] 20 mg PO DAILY #15 tablet 01/06/19 Unknown Rx traMADoL [Ultram 50 MG tab] 50 mg PO Q6HR PRN #15 tablet 07/09/20 Unknown Rx Acetaminophen [Tylenol] 650 mg PO Q8HR PRN #20 capsule 11/23/20 Unknown Rx methOCARBAMOL [Robaxin TAB] 500 mg PO BID PRN #14 tab 11/23/20 Unknown Rx Active Medications Sodium Chloride (Nacl 0.9% 1000 Ml) 1,000 mls @ 50 mls/hr IV DIRECT JERMAINE - Physical exam General appearance: no acute distress, well-nourished HEENT: Atraumatic, PERRLA, EOMI, Mucous membr. moist/pink Lungs: Clear to auscultation, Normal air movement Breasts: deferred Heart: Regular rate, Normal S1, Normal S2, No murmurs Gastrointestinal: normoactive bowel sounds, no tenderness, no distended, no masses, no organomegaly, no hepatomegaly, no splenomegaly, no obese Female Genitourinary: deferred Rectal Exam: normal exam-external/orifice, no mass Extremities: no ischemia, pulses intact, pulses symmetrical, No edema, normal temperature, normal color, Full ROM Neurological: Normal gait, Normal speech, Strength at 5/5 X4 ext, Normal tone, Sensation intact, Cranial nerves 3-12 NL - Brief post op/procedure progress note Date of procedure: 08/22/21 Findings: see dictation Estimated blood loss: none Pathology: list (Descending colon polyp) Specimen disposition: to lab Condition: stable - Disposition Condition at discharge: Good Disposition: 01 HOME / SELF CARE / HOMELESS - Discharge Diagnoses (1) History of colon polyps Status: Acute Short Stay Discharge Plan Activity: other (no driving for 24 hours. Restart Xarelto tomorrow) Weight Bearing Status: Full Weight Bearing Diet: diabetic Follow up with: AYANNA RODRIGEZ MD [Primary Care Provider] - 7 Days
--- NOTE | 2021-08-22 10:05 | Operative Report ---
Operative Report Operative Report: Date of procedure: 08/22/2021 Preprocedure diagnosis: History of colon polyps. Last study 5 years ago. Post procedure diagnosis: 5 mm descending colon polyp. Procedure: Colonoscopy to the cecum with cold snare polypectomy. Endoscopist: Dr. Torres Anesthesia: Monitored anesthesia care per anesthesia department Estimated blood loss: 0 Medications: Monitored anesthesia care. See separate report by anesthesia for details. After careful discussion of the nature and purpose of the procedure as well as details of the technique risks benefits and alternatives the patient gave consent. Please see recent history and physical from the office. The patient was placed in the left lateral decubitus position and medicated per anesthesia. A rectal exam was performed sphincter tone was normal there were no masses palpable. The Mondokion 570 scope was passed transanally and advanced under continuous direct vision without difficulty to the cecum. The colon preparation was fair. There were some areas requiring significant lavage in the right colon for clearance. The cecum was normal. The ascending colon was normal and on forward and retroflexed views. The transverse colon and sigmoid colon were normal. There was a 5 mm semisessile polyp in the descending colon which was removed with the cold snare completely and retrieved by suction. The rectum was normal on forward and retroflexed views. The procedure was well-tolerated overall and the patient was observed in recovery. Conclusions: 5 mm descending colon polyp. Fair preparation in the right colon. Plan: Repeat colonoscopy in 5 years Signed electronically: Petey Torres M.D.
--- NOTE | 2021-08-22 16:27 | Post Anesthesia Evaluation ---
- Post Anesthesia Evaluation Patient Participated: Yes Airway Patent: Yes Stable Respiratory Function: Yes Nausea/Vomiting: No Temp > 96.8F: Yes Pain Manageable: Yes Adequeate Hydration: Yes Anesthesia Complications: No Block Receding Appropriately: Not Applicable Patient on Ventilator: No
[2021-08-22 17:19] VITALS: BP 104/51
== END 2021-08-22 11:00 | disposition home or self-care (01) ==
LOC: GIO 06:41
PROVIDERS: ATTEND Internal Medicine Gastroenterology
DX: Z12.11 Encounter for screening for malignant neoplasm of colon (principal); D12.4 Benign neoplasm of descending colon; Z86.010 Personal history of colon polyps; Z79.899 Other long term (current) drug therapy; Z88.8 Allergy status to other drugs, medicaments and biological substances; Z79.4 Long term (current) use of insulin; K21.9 Gastro-esophageal reflux disease without esophagitis; F17.210 Nicotine dependence, cigarettes, uncomplicated; Z98.49 Cataract extraction status, unspecified eye; G62.9 Polyneuropathy, unspecified; I25.118 Atherosclerotic heart disease of native coronary artery with other forms of angina pectoris; I73.9 Peripheral vascular disease, unspecified; E78.00 Pure hypercholesterolemia, unspecified; Z86.718 Personal history of other venous thrombosis and embolism; J45.909 Unspecified asthma, uncomplicated; Z86.711 Personal history of pulmonary embolism; Z90.49 Acquired absence of other specified parts of digestive tract; Z98.890 Other specified postprocedural states; E66.9 Obesity, unspecified; Z98.51 Tubal ligation status; M19.90 Unspecified osteoarthritis, unspecified site; E11.9 Type 2 diabetes mellitus without complications; F41.9 Anxiety disorder, unspecified
CPT/HCPCS: 45385; 82962; 88305; J2704; J7030

== ENCOUNTER 2021-09-21 14:34 | Emergency (ER) | payer MEDICARE ==
[2021-09-21 16:51] VITALS: BP 116/65
== END 2021-09-22 02:00 | disposition left against medical advice (07) ==
LOC: ED 14:34
DX: R06.02 Shortness of breath (principal); Z53.21 Procedure and treatment not carried out due to patient leaving prior to being seen by health care provider
CPT/HCPCS: 93005